=== PATIENT | male | born 1960 | race Caucasian/White ===

== ENCOUNTER 2017-01-13 08:29 | Outpatient (CLI) | payer OTHER ==
--- NOTE | 2017-01-13 09:35 | PRG ---
DATE OF SERVICE: 01/13/2017 HISTORY: Mr. Robel Black is a very pleasant 56-year-old gentleman who presents to the [facility] for evaluation of a wound of the left foot subsequent to amputation of the left great toe underlyi ng sesamoid bone and metatarsal on 08/11/[address] Bulmaro Gurrola. Also at the time of surgery, t he patient underwent wound VAC placement. Prior to surgery on 08/11/2016, the patient had undergone left femoral popliteal bypass with nonreversed saphenous vein by Dr. Conti. The patient had been a dmitted to [facility] on 08/02/2016 for a diabetic foot infection after suffe ring a puncture wound to the plantar surface of the left foot under the left great toe. MRI on 07/12 revealed osteomyelitis of the great toe sesamoid. During the patient's hospital stay, Mr. Bhupendra padilla was seen in consultation by Infectious Diseases. After an initial course of IV antibiotics, th e patient was discharged to home on Bactrim and ciprofloxacin after undergoing amputation of the lef t great toe, underlying sesamoid bone and metatarsal. The patient has completed a course of negativ e pressure therapy and is now performing dressing changes of Aquacel AG. PHYSICAL EXAMINATION: VITAL SIGNS: Temperature 98.4, pulse 89, respirations 18, blood pressure 140/76, Accu-Chek 130. EXTREMITIES: A wound of the left foot subsequent to amputation of the left great toe, underlying se samoid bone and metatarsal is still present. Granulation tissue is present within the wound margins . Nonviable tissue present within the wound margins was debrided with an excisional full-thickness debridement with the use of a curette. Callus and desiccated tissue at the periphery of the wound w ere eliminated with the use of scissors. No purulent drainage is associated with the wound. No clinton thema of the skin surrounding the wound is present. No maceration of the skin of the periwound is n oted. A posterior tibial pulse is easily palpable on the left. No significant edema of the left fo ot is present on exam today. ASSESSMENT AND PLAN: 1. Left foot wound subsequent to surgery for diabetic infection of the left foot. Dressing changes of Aquacel AG will be continued on a daily basis after cleansing and irrigation. The patient will continue to perform his own dressing changes. As stated above, the patient has completed a course o f negative pressure therapy for the left foot wound. The patient has been fitted with diabetic shoe s with inserts. The patient has also been seen by the director community organization today. The wound has almost heale d completely and Mr. Black will be discharged from clinic today with followup on a p.r.n. basis. T he patient has been instructed to continue dressing changes of Aquacel AG until the wound has comple tely healed. The patient understands and is in agreement with the preceding treatment plan. 2. Diabetes mellitus. The patient's Accu-Chek in clinic today is 130. The patient has been remind ed that for optimal wound healing, his blood glucoses should remain below 150. 3. Coronary artery disease. 4. Hypertension.
[2017-01-13] MEDS ORDERED: Lidocaine 4% Topical Sol 50 ML BOT ONE (16:19)
[2017-01-13] MEDS ORDERED: Sodium Chloride 0.9% 15 ML NEB ONE (16:19)
== END 2017-01-13 08:30 | disposition home or self-care (01) ==
LOC: WCC 08:29
PROVIDERS: ATTEND Family Medicine
DX: S91.302D Unspecified open wound, left foot, subsequent encounter (principal)
CPT/HCPCS: 11042; A4218; J2001

== ENCOUNTER 2017-02-18 03:34 | Inpatient (IN) | payer OTHER, SELFPAY ==
[2017-02-18] MEDS ORDERED: diphenhydrAMINE 50 MG/ML VIAL ONE (03:39)
[2017-02-18] MEDS ORDERED: Famotidine/PF 20 mg/2ml Vial ONE (03:39)
[2017-02-18] MEDS ORDERED: methylPREDNISolone Sod Succ/PF 125 MG/2 ML VIAL ONE (03:39)
[2017-02-18 04:26] LABS: #Basophils 0.1 thou/uL (0.0-0.2); #Eosinphils 0.3 thou/uL (0.0-0.7); #Lymphocytes 2.6 thou/uL (1.20-3.40); #Neutrophils 11.4 thou/uL (1.40-6.50); %Basophils 0.7 % (0.0-1.0); %Eosinophils 1.9 % (0.0-10.0); %Monocytes 6.4 % (0.0-10.0); Hematocrit 49.7 % (42.0-52.0); Red Blood Cell (RBC) Count 5.09 mill/uL (4.70-6.10); White Blood Cell (WBC) Count 15.4 thou/uL (4.8-10.8)
[2017-02-18 04:34] LABS: Prothrombin Time 14.3 SEC (12.0-14.7)
[2017-02-18 04:49] LABS: ALT (SGPT) 22 U/L (8-55); AST (SGOT) 10 U/L (5-34); Alkaline Phosphatase 83 U/L (40-150); Anion Gap 13 mmol/L (10-20); BUN (Urea Nitrogen) 28 mg/dL (8.4-25.7); Bilirubin, Total 0.2 mg/dL (0.2-1.2); Calc. Creatinine Clearance 0 mL/min (70-130); Carbon Dioxide 21 mmol/L (22-29); Chloride 107 mmol/L (98-107); Estimated GFR-MDRD 66; Globulin 3.8 g/dL (2.4-3.5); Protein, Total 8.1 g/dL (6.0-8.3)
[2017-02-18] MEDS ORDERED: Acetaminophen 325 MG TAB PO PRN (04:59)
[2017-02-18] MEDS ORDERED: Ondansetron ODT 4 MG TAB SL PRN (04:59)
[2017-02-18] MEDS ORDERED: Sodium Chloride 0.9% 1,000 ML IV SCH ×3 (04:59→07:45)
[2017-02-18] MEDS ORDERED: Ondansetron HCl/PF 4 MG/2 ML Vial IVP PRN (04:59)
[2017-02-18 05:25] VITALS: BMI 31.8
[2017-02-18] MEDS ORDERED: Dextrose 50% Abboject 50 ML SYRINGE SLOW IVP PRN (05:41)
[2017-02-18] MEDS ORDERED: Dextrose 5% in Water 1,000 ML IV PRN (05:41)
[2017-02-18] MEDS ORDERED: HumaLOG 300 UNITS/3 ML VIAL SC PRN (05:45)
[2017-02-18] MEDS ORDERED: hydrALAZINE 20 MG/ML VIAL SLOW IVP PRN (05:54)
[2017-02-18] MEDS: Nicotine 14 MG PATCH TD SCH (06:19)
--- NOTE | 2017-02-18 07:27 | HP-2 ---
DATE OF ADMISSION: 02/18/2017 CODE STATUS: FULL. PRIMARY CARE PHYSICIAN: Dr. Nette Stewart in [place]. ATTENDING: Dr. Gaxiola. RESIDENT: Dr. Katelyn Baldwin. SPECIALIST: Dr. Braxton, Cardiology. CHIEF COMPLAINT: Tongue and throat swelling. HISTORY OF PRESENT ILLNESS: This is a 56-year-old male with past medical history of hypertension; c oronary artery disease; CHF; diabetes, type 2; hyperlipidemia; who presents with tongue and throat s welling that started around midnight tonight. The patient reports that it woke him up from sleep an d got progressively worse until around 3:00 a.m. when it stabilized. Since then, it has not gotten any worse, but also has not gotten any better. The patient denies any shortness of breath or any it phillip. He does not have any rashes or hives. He has not eaten any new foods. Does not have any st ings or bites. The patient reports that he has had several episodes similar to this before includin g an episode in 2014 where he went to the ER in [place], where at that time the only medication he was taking was atenolol and they just gave him epinephrine and sent him home. Then, another epi sode last week where his tongue was swollen on just one side, just lasted a few hours, and then went away on its own. He was just started on lisinopril a few months ago and is not taking a new dose o f this. Denies any cough, trouble breathing, chest pain. In the ER, he was given 1 liter normal sa line, 20 mg Pepcid, 50 mg Benadryl, 125 mg Solu-Medrol. PAST MEDICAL HISTORY: 1. Hypertension. 2. Hyperlipidemia. 3. Coronary artery disease, status post coronary artery bypass graft. 4. Congestive heart failure with an ejection fraction of 35%-40% and diastolic dysfunction. 5. Diabetes, type 2. PAST SURGICAL HISTORY: CABG x3 in 2010, back surgery, hernia repair, right great toe and right seco nd toe amputation. ALLERGIES: No known drug allergies. MEDICATIONS: 1. Gemfibrozil 600 mg b.i.d. 2. Metoprolol 25 mg b.i.d. 3. Metformin 500 mg b.i.d. 4. Atorvastatin 40 mg daily. 5. Lisinopril 10 mg daily. 6. Clopidogrel 75 mg daily. FAMILY HISTORY: Mother, hypertension. SOCIAL HISTORY: Tobacco use. Smokes 2 to 3 cigarettes a day for 30 years. Denies alcohol or drug use. Lives alone. REVIEW OF SYSTEMS: A 12-point review of systems was conducted and was negative except for what was mentioned in the HPI. PHYSICAL EXAMINATION: VITAL SIGNS: Blood pressure 126/80, pulse 90, respiratory rate 18, temperature 97.4, pulse ox 93% o n room air, current weight 118 kilograms. GENERAL: Alert, oriented x3, in no acute distress, obese, appropriately interactive. EYES: Pupils equal, round, reactive to light. Extraocular muscles intact. Conjunctivae within nor mal limits. ENT: Tympanic membranes pearly nevarez with no bulging or erythema. Nasal mucosa within normal limits . Swollen lips and tongue, unable to visualize posterior pharynx. NECK: Swollen. No lymphadenopathy. CARDIOVASCULAR: Regular rate and rhythm. No murmurs, gallops. A 2+ radial and pedal pulses. RESPIRATORY: Normal effort, no retractions, clear to auscultation bilaterally. SKIN: Warm, dry. No cyanosis or lesions. ABDOMEN: Obese, soft, nontender to palpation. Normoactive bowel sounds. EXTREMITIES: No clubbing, cyanosis, or edema. MUSCULOSKELETAL: Structure and tone within normal limits, 5/5 muscle strength. Full range of motio n. NEUROLOGIC: No focal deficits. Sensation within normal limits. PSYCHIATRIC: Appropriate. LABORATORY DATA: WBC 15.4, hemoglobin of 16.8, hematocrit of 49.7, platelets 349. Sodium 137, pota ssium 4.2, chloride 107, CO2 of 21, BUN 28, creatinine of 1.14, GFR 66, glucose 153, calcium 10, tot al protein 8.1, albumin 4.3, total bilirubin 0.2, alkaline phosphatase 83, AST 10, ALT 22. ESR 24, CRP less than 0.5. PT 14.3, INR 1.1, PTT 36.0. ASSESSMENT AND PLAN: This is a 56-year-old male admitted for: 1. Angioedema. Airway currently protected. We will admit to the ICU for close observation. Reshma rn for airway compromise. We will intubate if worsened swelling. Angioedema could be secondary to MALCOM inhibitor or hereditary angioedema with the patient having multiple episodes of angioedema prior to MALCOM inhibitor treatment. We will check C4 level. We will hold lisinopril. We will hold all NS AIDs. We will treat with Benadryl and Solu-Medrol. 2. Acute kidney injury. We will give light fluids with NS at 100 mL per hour for 1 bag and we will monitor. We will hold metformin. 3. Leukocytosis. No other signs of infection, likely secondary to steroids. We will monitor. 4. Elevated ESR, likely acute phase reactant from inflammation. Monitor. 5. Congestive heart failure. A recent catheterization showed EF of 35%-40% in 12/2016. We will mo nitor fluid status as giving patient NS at 100 mL per hour. We will continue metoprolol once patien t is tolerating p.o. 6. Diabetes, type 2. We will give patient sliding scale insulin and Accu-Cheks a.c. and at bedtime , diabetic diet after the patient is able to tolerate p.o. 7. Hypertension. We will hold lisinopril. We will give hydralazine p.r.n. We will continue metop rolol once patient is tolerating p.o. 8. Coronary artery disease. We will continue clopidogrel once the patient is tolerating p.o. 9. Hyperlipidemia. We will continue home medications once patient tolerating p.o. 10. VTE prophylaxis. Lovenox. DISPOSITION: Admit to ICU. Symptomatic medication will be provided. History and physical exam as well as management were discussed with Dr. Gaxiola.
[2017-02-18] MEDS ORDERED: FLU VACC QS2017-18 36 mo. & older 0.5 ML SYRINGE IM ONE (09:00)
[2017-02-18] MEDS: Enoxaparin Sodium 40 MG/0.4 ML SYRINGE SC SCH (09:04)
--- NOTE | 2017-02-18 12:13 | CON ---
DATE OF CONSULTATION: 02/18/2017 HISTORY OF PRESENT ILLNESS: Mr. Black is a pleasant 56-year-old male with a history of heart disea se followed by Dr. Braxton. He tells me that he has had intermittent episodes of tongue swelling going on for quite some time. He says he has actually been in [facility] once with this. They watched him for 8 hours, but n ever explained to him what might have caused this. He has been on an MALCOM inhibitor for quite some time. He had an episode yesterday that presented that was worse than the other episodes, so he came to the hospital. He was observed overnight in the ICU. His tongue is by his report decreased in size con siderably. PAST MEDICAL HISTORY: 1. Remarkable for hypertension. 2. Lipid disorder. 3. Coronary artery bypass grafting. 4. History of a cardiomyopathy with systolic and diastolic dysfunction. 5. History of diabetes. 6. History of back surgery. 7. History of a herniorrhaphy. 8. History of right great toe and second right toe amputations. SOCIAL HISTORY: He is a smoker. He is not a daily drinker. MEDICATIONS: He is on lisinopril, Plavix, atorvastatin, metformin, metoprolol, gemfibrozil prior to admission. FAMILY HISTORY: Negative for lung disease at an early age. There is a history of hypertension. REVIEW OF SYSTEMS: Otherwise negative. He denies shortness of breath at this time. PHYSICAL EXAMINATION: VITAL SIGNS: Heart rate 79, blood pressure 109/63, respiratory rate 15-21. Oximetry is 95 on room air. HEENT: His tongue is only slightly swollen. He has thickened speech because of his swollen tongue, but he is in no distress with no stridor. NECK: Supple. LUNGS: Clear. HEART: Regular rhythm. S1 and S2 are normal. ABDOMEN: Soft. EXTREMITIES: Without asymmetry. LABORATORY DATA: White count 15.4, hemoglobin 16.8, platelets 349. Sodium 137, potassium 4.2, chloride 107, bicarbonate 21, BUN 21, creatinine 1.14, glucose 153, globu usama was 3.8. 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 I have explained to him that he needs to avoid MALCOM inhibitors in the future. I have consulted Dr. Braxton, she is his primary certified phlebotomy technician, that she is aware of this situation. He can transfer out of the Critical Care Unit. He does not need heart monitoring at this point.
--- NOTE | 2017-02-18 19:05 | CON ---
DATE OF CONSULTATION: 02/18/2017 PRIMARY CARE PHYSICIAN: Dr. Fito Fernandez. PRIMARY LARGE ANIMAL HUSBANDRY TECHNICIAN: Dr. Missy Braxton. REFERRING PHYSICIAN: Dr. Katelyn Baldwin. REASON FOR CARDIOLOGY CONSULTATION: Angioedema. HISTORY OF PRESENT ILLNESS: Mr. Black is a 56 years old male with significant history of coronary artery disease with history of coronary artery bypass graft in 2010 and hypertension, diabetes type 2, and peripheral vascular disease. The patient presents to the emergency department due to worsening of swelling in his mouth and the tongue and unable to breathe well. He has experienced of several episodes of swelling in his tongue and mouth in the past. The last time was few weeks ago which his left side of his mouth get swelling for 1 hour. His symptom was improved without any medication or treatment at that time. However, last night after midnight his tongue started swelling again, but at that time his symptoms were getting worse, and he could not swallow and could not breathe well. At that time, he felt his tongue was poking out, and he could not talk at all. In the ER, he received 1 liter of normal saline and Benadryl 50 mg and Solu-Medrol 125 mg IV. After those medicines patient's symptoms improved. During the Cardiology consultation assessment, he could talk without nasal cannula. He denies any itchiness or skin rash or had any different food or detergent or any insect bites or any new medicine except the lisinopril which he started taking that medicine since 2016 after he was hospitalized for chest pain and non-STEMI. He was discharged home with lisinopril at that time. We saw the patient in the office in 2016 for hospital followup. At that time, patient denies any shortness of breath, dizziness, lightheadedness, itchiness, or swelling. The patient reports that he has had similar episodes like today before the end of 2014. At that time, his symptoms improved within few hours. He has a history of coronary artery disease, status post coronary artery bypass graft x3 in 2010. The patient underwent cardiac catheterization in 12/2016 without any intervention at that time. Doctor's recommendation at that time was possible another cardiac catheterization with intervention if patient is symptomatic. He had an echocardiogram in 12/2016 which shows EF of 45% to 50%, mild mitral regurgitation, mild tricuspid regurgitation and mild dilated left atrium. PAST MEDICAL HISTORY: 1. Coronary artery disease. 2. Hypertension. 3. Hyperlipidemia. 4. Diabetes type 2. 5. Peripheral vascular disease. 6. Current tobacco abuse. PAST SURGICAL HISTORY: 1. Coronary artery bypass graft x3 in 2010. 2. Back surgery. 3. Hernia repair. 4. Bilateral first toe and right second toe amputation in 08/2016. FAMILY HISTORY: The patient's mother has a history of diabetes and hypertension. The patient's younger brother has a history of stent placement at the age of 45. SOCIAL HISTORY: The patient is and lives by himself. He has 3 children who are living well. He still smokes 2-3 cigarettes a day for 30 years. He denies ETOH or illicit drug abuse. He enjoy 2 cups of coffee in the morning and several sodas or teas during the daytime. ALLERGIES: Except the lisinopril, he has no known drug allergies. CURRENT HOME MEDICATIONS: Metformin 500 mg twice a day, aspirin 81 mg once a day, multivitamin 1 tablet once a day, metoprolol tartrate 25 mg twice a day, lisinopril 10 mg once a day, Plavix 75 mg once a day, atorvastatin 40 mg once a day, gemfibrozil 600 mg every day twice a day, 30 minutes before morning and evening meal. REVIEW OF SYSTEMS: The following complete review of systems was negative, unless otherwise mentioned in the HPI or below. Constitutional: Weight loss or gain, sense of well being, ability to conduct usual activities, exercise tolerance. Skin: Rash, itching, change in hair growth or loss, nail change. Breasts: Lump tenderness, swelling, nipple discharge. Eyes: Vision change, double vision, tearing, blind spots or pain. HEENT: Mild headache, vertigo, lightheadedness or dizziness, nose bleeding, obstruction or discharge, dental difficulty, gingival bleeding, dentures, neck stiffness, pain, tenderness, mass in the thyroid or other areas. Cardiovascular: Precordial pain, substernal distress, palpitations, syncope, dyspnea on exertion, orthopnea, nocturnal dyspnea, edema, cyanosis, heart murmur, varicosis claudication. Respiratory: Pain, wheezing, stridor, cough, hemoptysis, fever or night sweats. Gastrointestinal: Poor appetite, dysphagia, indigestion, abdominal pain, heartburn, irritation, constipation, or diarrhea, abnormal stool, blood in stool. Genitourinary: No urgency, frequency, dysuria, nocturia, hematuria, polyuria, oliguria, unusual color of urine. Musculoskeletal: Pain, swelling, redness or heat of muscle or joint, limitation of motion, atrophy or cramps. Neurologic: Seizure , difficulty with memory of speech, sensory or motor disturbance or muscular coordination. Psychiatric: Emotional problem, anxiety , depression, previous psychiatric care, unusual perceptions, hallucinations. PHYSICAL EXAMINATION: VITAL SIGNS: Blood pressure 120/63, heart rate 81 with sinus rhythm. O2 sat 94 % on 4 liters nasal cannula, temperature 98.4. GENERAL: Well-developed, well-nourished without any acute distress. HEAD: Normocephalic, atraumatic. EYES: Extraocular muscle movements are intact. ENT: Oral and nose mucosa are moist without lesion. His tongue is swelling, but he can swallow his saliva at this time, he is n.p.o. at this time. NECK: No JVD. Neck is supple, normal range of motion. LUNGS: Clear to auscultation bilaterally. No wheezing, rales or rhonchi noted. CARDIOVASCULAR: Regular rate and rhythm, normal S1, S2. There are no S3, S4. No significant murmur, hives, thrill, bruits or rub noted. There are 2+ dorsal pedis, posterior tibial, popliteal are present. Carotid pulse present without bruit or thrill. No edema in the bilateral lower extremities. Bilateral first toe and the right second toe amputate. ABDOMEN: Soft and nontender to palpate, nondistended. Bowel sounds are present. MUSCULOSKELETAL: Able to move all extremities. SKIN: Warm and dry. No skin rash or lesions or bruise noted. Incision at the first toe, bilateral toe first toe and right second toe, clean and healed. NEUROLOGIC: Alert, oriented x4, awake. Normal affect. No focal. PSYCHIATRIC: Mood and affect are normal. EKG: There is no 12-lead EKG in the patient's chart at this moment with telemetry records shows patient sinus rhythm without any ST segment change with a heart rate 80s. At this time, he does not have any chest x-ray or any radiology results and records at this time. LABORATORY DATA: WBC 15.4, hemoglobin 16.8, hematocrit 49.7, platelets 349. INR is 1.1. Chemistry: Sodium 137, potassium 4.2, BUN 28, creatinine 1.14, glucose 153, AST 10 and ALT 22. C-reactive protein less than 0.5 and complement C4 is a 59.1, which is normal at 15-53. ASSESSMENT AND PLAN: 1. Angioedema, his symptoms possible secondary to MALCOM inhibitor. He is in ICU for close observation. At this time, his symptoms slowly improved with current medication. His complement C4 is slightly higher than normal which is not indicate hereditary angioedema. We would like to continue to monitor the patient closely in ICU at this time. 2. Coronary artery disease with a history of CABG x3 in 2010. The patient's condition is stable at this time with current medication. Once patient is able to swallow, we would like to resume patient's home medications except lisinopril. 3. Hypertension. The patient's blood pressure is stable at this time. We like to continue to monitor and again, we like to resume patient's home medication as appropriate. 4. Peripheral vascular disease with a history of toe amputation in 08/2016. The patient's condition stable, at this time, we like to continue to monitor and the patient has Lovenox 40 mg daily for deep venous thrombosis prophylaxis. 5. Diabetes type 2. He is on the a.c. and h.s. glucose check with Humalog sliding scale order, which is managed by patient's primary care doctor. 6. Hyperlipidemia. He is on a statin medication. We like to resume that medication as appropriate. 7. Tobacco abuse. Smoking cessation education giving to the patient. Thank you very much for allowing Cardiology service to participate in the care of the patient. We will follow along with the patient's care team and make further recommendations as appropriate. SUSAN
[2017-02-18] MEDS: diphenhydrAMINE 50 MG/ML VIAL IVP SCH (21:47)
[2017-02-19 05:26] LABS: #Basophils 0.1 thou/uL (0.0-0.2); #Eosinphils 0.2 thou/uL (0.0-0.7); #Lymphocytes 2.8 thou/uL (1.20-3.40); #Monocytes 0.8 thou/uL (0.11-0.59); #Neutrophils 8.8 thou/uL (1.40-6.50); %Basophils 0.8 % (0.0-1.0); %Eosinophils 1.8 % (0.0-10.0); %Lymphocytes 21.9 % (21.0-51.0); %Monocytes 6.6 % (0.0-10.0); Hematocrit 44.6 % (42.0-52.0); Mean Platelet Volume 8.3 fL (7.4-10.4); Red Blood Cell (RBC) Count 4.56 mill/uL (4.70-6.10); White Blood Cell (WBC) Count 12.8 thou/uL (4.8-10.8)
[2017-02-19 05:51] LABS: Anion Gap 13 mmol/L (10-20); BUN (Urea Nitrogen) 18 mg/dL (8.4-25.7); Calc. Creatinine Clearance 161 mL/min (70-130); Calcium 8.9 mg/dL (7.8-10.44); Carbon Dioxide 18 mmol/L (22-29); Chloride 109 mmol/L (98-107); Estimated GFR-MDRD Greater than 90
--- NOTE | 2017-02-19 05:55 | ADD-CON ---
ADDENDUM DATE OF ADMISSION: 02/18/2017 DATE OF CONSULTATION: 02/18/2017 INDICATION FOR CONSULTATION: A 56-year-old gentleman with what appears to be hereditary angioedema with some tongue swelling and some dyspnea due to the swelling of the tongue. HISTORY OF PRESENT ILLNESS: This is a very pleasant 56-year-old gentleman who underwent bypass surg clinton approximately 5-6 years ago. He had no significant problems since that time as far as his coron vin artery disease is concerned. He has had some episodes of congestive heart failure in the past. He did have his last cardiac catheterization in 2017 earlier this year, ejection fraction estimated at 35% to 40%. He has had what he describes as being some swelling of the tongue in the right side and left side, it varies from time to time on an occasional basis. He was not change any particula r medication that we can identify, he had been on lisinopril and I thought at one time, perhaps it w as due to the lisinopril, so this medicine was stopped and he still continued to have some of the ep isodes of edema. He did not have any rashes, usually this occurs in the evenings while he is sleepi ng and he wakes up with it and has noticed that he has enlarged tongue and has difficulty breathing. Usually, he said it goes away relatively quickly if he takes some Benadryl. But at this time, he had some worsening of the problem and the entire swollen and became short of breath and presented to the emergency room. It is uncertain if it is medications or environmental or food allergies or jus t due to hereditary angioedema. At this time, most of the swelling has resolved and he is back to h is baseline. Previously, he had been on lisinopril, metoprolol, pravastatin, gemfibrozil as well as atorvastatin and metformin. There have been no major changes in his medications, but as noted abov e, he has been on and off of lisinopril and even while being off the lisinopril, he has had these ep isodes of this edema. At this time, he is stable and is feeling almost back to baseline. Please re enrico to the notes already dictated by the nurse practitioner Kallie. I have reviewed this, discussed the patient with her, will agree with the assessment and plan. PHYSICAL EXAMINATION: VITAL SIGNS: He is afebrile. CHEST: Clear to auscultation. CARDIOVASCULAR: Exam reveals a regular rate and rhythm. ABDOMEN: Unremarkable. EXTREMITIES: Show no clubbing, cyanosis or edema. NEUROLOGIC: He appears to be fully intact. SKIN: Warm and dry. There is no significant swelling noted in the tongue at this time. IMPRESSION: 1. 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 I believe complement levels have been obtained. 2. Diabetes. The patient is on medications. 3. Hypertension. This remains stable. He has had a problem with smoking in the past, continues to smoke unfortunately, I believe this has also been addressed for his nicotine addiction. 4. Acute renal insufficiency, which is mild. This also may be associated with his angioedema. He has been placed on steroids and this apparently has improved. He does have a history also of a syst olic as well as diastolic dysfunction. There also appears to be stable. We will need to monitor hi s fluid intake. Otherwise, he will continue on the present medications with an antihistamine and st eroids. We will be more than happy to continue to follow the patient with you, but overall cardiac status ap pears to be very stable.
[2017-02-19] MEDS: Nicotine 14 MG PATCH TD SCH (05:57)
--- NOTE | 2017-02-19 08:07 | PDOC.FM ---
- Subjective Subjective: STEW overnight, VSS, afebrile. States swelling feels like it has completely resolved. Tolerating CLD. Asking for regular food. Has never seen an car pilot before. No FHx of angioedema - Objective MAR Reviewed: Yes Vital Signs & Weight: Vital Signs (12 hours) Temp Pulse Resp BP Pulse Ox 02/19/17 04:00 97.8 F 75 20 115/73 95 02/19/17 00:49 98.5 F 73 20 103/67 95 Most Recent Monitor Data Heart Rate from ECG 89 NIBP 120/76 NIBP BP-Mean 92 Respiration from ECG 16 SpO2 95 I&O: 02/18/17 02/19/17 02/20/17 06:59 06:59 06:59 Intake Total 88 1218 Output Total 450 Balance 88 768 Result Diagrams: 02/19/17 05:13 02/19/17 05:13 <Rick Latham - Last Filed: 02/19/17 08:05> - Objective Vital Signs & Weight: Vital Signs (12 hours) Temp Pulse Resp BP Pulse Ox 02/19/17 09:00 98.3 F 114 H 16 02/19/17 08:28 98.3 F 114 H 16 105/74 97 02/19/17 04:00 97.8 F 75 20 115/73 95 02/19/17 00:49 98.5 F 73 20 103/67 95 Most Recent Monitor Data Heart Rate from ECG 89 NIBP 120/76 NIBP BP-Mean 92 Respiration from ECG 16 SpO2 95 I&O: 02/18/17 02/19/17 02/20/17 06:59 06:59 06:59 Intake Total 88 1218 Output Total 450 Balance 88 768 Result Diagrams: 02/19/17 05:13 02/19/17 05:13 <Janelle Abrams - Last Filed: 02/19/17 10:22> Phys Exam - Physical Examination Constitutional: NAD HEENT: PERRLA, oral pharynx no lesions Neck: no nodes Respiratory: no wheezing, clear to auscultation bilateral Cardiovascular: RRR, no significant murmur Gastrointestinal: soft, non-tender Musculoskeletal: no edema, pulses present Neurological: non-focal, moves all 4 limbs Lymphatic: no nodes Psychiatric: normal affect, A&O x 3 Skin: cap refill <2 seconds <Rick Latham - Last Filed: 02/19/17 08:05> Dx/Plan (1) Angioedema Code(s): T78.3XXA - ANGIONEUROTIC EDEMA, INITIAL ENCOUNTER Status: Resolved Plan: 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 Episodes prior to initiation of MALCOM during his last hospitalization Has resolved and respiratory status stable and tolerating PO Will set pt up w/ car pilot for allergy testing outpaient Plan to d/c home today w/ anaphylaxis action plan, however no sxs of anaphylaxis w/ angioedema episode Will d/c out with epinephrine C4 level not suppressed and pending C1 Esterase inhibitor function Advance diet as tolerated today Will plan for likely d/c later on this afternoon if remains stable (2) MAREK (acute kidney injury) Code(s): N17.9 - ACUTE KIDNEY FAILURE, UNSPECIFIED Status: Resolved Plan: resolved s/p IVF (3) CHF (congestive heart failure) Code(s): I50.9 - HEART FAILURE, UNSPECIFIED Status: Acute Plan: Cont. w/ ASA and statin and beta lorna MALCOM/ARB contraindicated 2/2 angioedema (4) DM type 2 (diabetes mellitus, type 2) Status: Chronic Plan: Diabetic diet Cont. w/ metformin (5) HTN (hypertension) Code(s): I10 - ESSENTIAL (PRIMARY) HYPERTENSION Status: Chronic Plan: Cont. w/ home BP meds Stable <Rick Latham - Last Filed: 02/19/17 08:05> Attending Addendum - Attending Addendum I personally evaluated the patient and discussed the management with Dr. Latham on 02/19/17. I agree with the History, Examination, Assessment and Plan documented above with any addition or exceptions noted below. Patient back to baseline. Given a list of medication to avoid and an action plan. Discharge home today. <Janelle Abrams - Last Filed: 02/19/17 10:22>
[2017-02-19 08:29] VITALS: BP 105/74; TEMP 98.3
[2017-02-19] MEDS: diphenhydrAMINE 50 MG/ML VIAL IVP SCH (08:42)
[2017-02-19] MEDS: Enoxaparin Sodium 40 MG/0.4 ML SYRINGE SC SCH (08:46)
[2017-02-19] MEDS ORDERED: Rosuvastatin 10 MG TAB PO SCH ×2 (10:30→21:00)
--- NOTE | 2017-02-19 10:30 | PRG ---
DATE OF SERVICE: 02/19/2017 Mr. Black's tongue is back to normal. He is talking fluently. He has had no blood pressure elevat ions. He is tolerating p.o. intake. In my opinion, he is ready to go home. This is clearly angioe katlin brought on by his MALCOM inhibitor; it is not felt to be an allergic reaction in my opinion or her editary angioedema. It would be very unusual for him to develop hereditary angioedema at 56 years o f age. He should avoid MALCOM inhibitor.
--- NOTE | 2017-02-19 10:33 | PDOC.CTH ---
Cardiology Progress Note - Subjective The pt was seen and examined. No overnight events. No cardiac complaints. He is having breakfast without any difficulties. - Objective Vital Signs Temp Pulse Resp BP Pulse Ox 02/19/17 09:00 98.3 F 114 H 16 02/19/17 08:28 98.3 F 114 H 16 105/74 97 02/19/17 04:00 97.8 F 75 20 115/73 95 02/19/17 00:49 98.5 F 73 20 103/67 95 02/18/17 02/19/17 02/20/17 06:59 06:59 06:59 Intake Total 88 1218 Output Total 450 Balance 88 768 - Physical Examination General/Neuro: alert & oriented x3 Neck: no JVD present Lungs: CTA Heart: RRR Abdomen: soft Extremities: other: (No edema) - Labs Result Diagrams: 02/19/17 05:13 02/19/17 05:13 - Assessment/Plan 1. Angioedema - resolved; F/u with programmer as outpt 2. CAD with CABG x3 in 2010 - His HR was 82 during exam; Will resume ASA and BBlocker when his BP is stable 3. HTN - stable with current medication 4. PVD - stable 5. DM type 2 - Cont. w/ metformin 6. Hyperlipidemia - change Lipitor 40mg to Crestor 10mg due to drug interaction to Gemfibrozil 600mg BID 7. Tobacco abuse - smoking cessation education given to the pt MAR reviewed *from Cardiac standpoint, the pt is stable to d/c; The pt will f/u with Dr Braxton ' office within 1 month. Thank you very much for cardiac consult request Review of Systems - Review of Systems Constitutional: reports: no symptoms reported EENTM: reports: no symptoms reported Respiratory: reports: no symptoms reported Cardiac (ROS): reports: no symptoms reported ABD/GI: reports: no symptoms reported : reports: no symptoms reported Musculoskeletal: reports: no symptoms reported Skin: reports: no symptoms reported Neurological: reports: no symptoms reported Endocrine: reports: no symptoms reported
--- NOTE | 2017-02-19 14:22 | DIS-2 ---
DATE OF ADMISISON: 02/18/2017 DATE OF DISCHARGE: 02/19/2017 CONSULTS: 1. Critical care, Dr. Gordon. 2. Cardiology, Dr. Braxton. PROCEDURES: None. 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 SECONDARY DIAGNOSES: 1. Hypertension. 2. Congestive heart failure. 3. Hyperlipidemia. 4. Coronary artery disease. 5. Type 2 diabetes mellitus. DISCHARGE MEDICATIONS: 1. Gemfibrozil 600 mg p.o. b.i.d. 2. Metoprolol 25 mg p.o. b.i.d. 3. Metformin 500 mg p.o. b.i.d. 4. Atorvastatin 40 mg p.o. daily. 5. Clopidogrel 75 mg p.o. every day. 6. EpiPen 0.3 mg IM q.5-15 minutes p.r.n. swelling or anaphylaxis. DISCONTINUED MEDICATIONS: Lisinopril 10 mg p.o. daily. HISTORY OF PRESENT ILLNESS AND HOSPITAL COURSE: The patient is a 56-year-old male with past medical history of hypertension, coronary artery disease, CHF, diabetes, and hyperlipidemia, who presents t o the ER for worsening tongue and throat swelling that started at around midnight, the Wednesday night prior to presentation. The patient states that this awoke him up from sleep and continued to get wo rsen till about 3:00 a.m. before stabilizing. Patient denies any rash, hives and blood pressure is stable in the ER, not concerning for anaphylaxis. The patient did receive Solu-Medrol as well as di phenhydramine in the ER with subsequent improvement of his swelling of the throat and tongue. Lily rogers reportedly had a prior episode back in 2014 where he presented to the ER in [place] and was given EpiPen at this time. This is prior to onset of any of his MALCOM inhibitor use. There was nelson rn for possible component of hereditary angioedema, alongside the patient being started on lisinopri l during his previous hospitalization for chest pain and in the setting of diabetes and coronary art clinton disease. C4 complement level was obtained; however, this was normal and not depressed as would be expected as hereditary angioedema. Secondary to a somewhat high suspicion of C1 esterase inhibit or function was obtained, which is pending at time of this dictation. After consultation with [facility] and Cardiology, specialists feel that this is likely MALCOM inhibitor induced and recommendati ons for no further treatment with MALCOM inhibitors or angiotensin receptor blockers in the future. Th is was discussed at length with patient. Prior to discharge home, the patient was given information on drugs to avoid which would precipitate this. The patient's vital signs remained stable off MALCOM inhibitor, so this medication was discontinued in the setting of an MALCOM inhibitor induced angioedema . The patient is to follow up with an reading interventionist for a possible environmental triggers, which could pass as well and will be contacted with the results of the C1 esterase inhibitor function once recei alessia. DISPOSITION: Stable. DISCHARGE INSTRUCTIONS: 1. Location: Home. 2. Follow up with primary care provider in 7-10 days. 3. Follow with Dr. Yang Mclain, allergy in 7-10 days. 4. Activity: Cardiopulmonary limits.
== END 2017-02-19 13:45 | disposition home or self-care (01) | DRG 916 ==
LOC: ERS 03:34 → CCU 03:50 → T4-B 13:37
PROVIDERS: ADMIT Family Medicine; ATTEND Family Medicine
DX: T78.3XXA Angioneurotic edema, initial encounter (principal); N17.9 Acute kidney failure, unspecified; I11.0 Hypertensive heart disease with heart failure; I50.32 Chronic diastolic (congestive) heart failure; T46.4X5A Adverse effect of angiotensin-converting-enzyme inhibitors, initial encounter; I25.10 Atherosclerotic heart disease of native coronary artery without angina pectoris; Z95.1 Presence of aortocoronary bypass graft; E11.9 Type 2 diabetes mellitus without complications; Z79.84 Long term (current) use of oral hypoglycemic drugs; E78.5 Hyperlipidemia, unspecified; I73.9 Peripheral vascular disease, unspecified; F17.210 Nicotine dependence, cigarettes, uncomplicated; Z89.412 Acquired absence of left great toe; Z89.411 Acquired absence of right great toe; Z89.421 Acquired absence of other right toe(s)
CPT/HCPCS: 36415; 36416; 80048; 80053; 85025; 85610; 85652; 85730; 86140; 86160; 86161; 90471; 90682; 94760; 96361; 96374; 96375; 99406; G0008; J1200; J1650; J2920; J2930; Q2036; S0028

== ENCOUNTER 2017-04-28 08:47 | Outpatient (CLI) | payer OTHER ==
--- NOTE | 2017-04-28 10:11 | PRG ---
DATE OF SERVICE: 04/28/2017 HISTORY: Mr. Robel Black is a very pleasant 56-year-old gentleman who presented to the [facility] for evaluation of a lesion of the left forefoot. The patient was last seen in the [facility]ound Center on 01/13/2017 for a wound of the left foot subsequent to amputation of the left great toe, underlying se samoid bone and metatarsal on 08/11/[address] Bulmaro Gurrola. This wound has healed completely and remains healed. The patient states that he has been utilizing the shoes fitted for him by the pedor thist. He states that the lesion of his left forefoot may be from the diabetic shoes with inserts. The patient states that he does not recall stepping on anything that may have resulted in the left fo refoot lesion. PHYSICAL EXAMINATION: VITAL SIGNS: Temperature 98.4, pulse 82, respirations 19, blood pressure 140/69. Accu-Chek 135. EXTREMITIES: A callus is present and over the left forefoot, discoloration of the center of callus i s noted. No open wound is present over the left forefoot. No cellulitis of the left foot is present . No maceration of the skin of the left forefoot is present. A dorsalis pedis pulse is palpable on the left. No significant edema of the left foot is present on exam today. ASSESSMENT AND PLAN: 1. Left forefoot lesion as described above. I have reassured the patient that no open wound is pres ent requiring dressing changes. The patient is to return to the Wound Center in 2 weeks. At this ti me, he will be seen by the sales technician. The patient understands and is in agreement with the precedin g treatment plan. 2. Diabetes mellitus. The patient's Accu-Chek in clinic today is 135. 3. Coronary artery disease. 4. Hypertension.
== END 2017-04-28 08:48 | disposition home or self-care (01) ==
LOC: WCC 08:47
PROVIDERS: ATTEND Family Medicine
DX: L98.8 Other specified disorders of the skin and subcutaneous tissue (principal); E11.9 Type 2 diabetes mellitus without complications; I25.10 Atherosclerotic heart disease of native coronary artery without angina pectoris; I10 Essential (primary) hypertension

== ENCOUNTER 2017-05-23 13:07 | Inpatient (IN) | payer SELFPAY ==
[2017-05-23 14:28] LABS: #Eosinphils 0.2 thou/uL (0.0-0.7); #Lymphocytes 1.5 thou/uL (1.20-3.40); #Monocytes 0.6 thou/uL (0.11-0.59); #Neutrophils 7.5 thou/uL (1.40-6.50); %Basophils 0.5 % (0.0-1.0); %Eosinophils 2.4 % (0.0-10.0); %Lymphocytes 14.9 % (21.0-51.0); %Monocytes 6.4 % (0.0-10.0); %Neutrophils 75.9 % (42.0-75.0); Hemoglobin 15.3 g/dL (14.0-18.0); Mean Corpuscular HGB CONC 34.4 g/dL (32.0-36.0); Mean Corpuscular Hemoglobin 33.2 pg (27.0-31.0); Mean Corpuscular Volume 96.2 fl (80.0-94.0); Mean Platelet Volume 9.6 fL (7.4-10.4); Platelet Count 255 thou/uL (130-400); RBC Distribution Width 12.9 % (11.5-14.5); Red Blood Cell (RBC) Count 4.61 mill/uL (4.70-6.10); White Blood Cell (WBC) Count 9.9 thou/uL (4.8-10.8)
[2017-05-23 15:16] LABS: Albumin 3.9 g/dL (3.5-5.0)
[2017-05-23 15:17] LABS: Chloride 101 mmol/L (98-107); Potassium 4.7 mmol/L (3.5-5.1); Sodium 136 mmol/L (136-145)
[2017-05-23 15:18] LABS: Calcium 9.9 mg/dL (7.8-10.44); Glucose 208 mg/dL (70-105)
[2017-05-23 15:19] LABS: Globulin 3.7 g/dL (2.4-3.5); Protein, Total 7.6 g/dL (6.0-8.3)
[2017-05-23 15:20] LABS: Anion Gap 16 mmol/L (10-20); Bilirubin, Total 0.4 mg/dL (0.2-1.2); Carbon Dioxide 24 mmol/L (22-29)
[2017-05-23 15:21] LABS: Alkaline Phosphatase 77 U/L (40-150)
[2017-05-23 15:22] LABS: Calc. Creatinine Clearance 0 mL/min (70-130); Estimated GFR-MDRD 65
[2017-05-23 15:23] LABS: BUN (Urea Nitrogen) 13 mg/dL (8.4-25.7)
[2017-05-23 15:24] LABS: ALT (SGPT) 23 U/L (8-55); AST (SGOT) 9 U/L (5-34)
--- NOTE | 2017-05-23 15:49 | RAD ---
THREE VIEWS OF THE LEFT FOOT: Date: 05-23-17 History: Abscess. Patient reports wound to left foot for quite some time. Patient is undergoing wound care. Patient reports increase in redness, swelling and pain. Comparison: Left great toe, 09-17-16; views of the left foot 08-02-16. FINDINGS: There has been interval amputation of the left great toe at the level of the proximal aspect of the m etatarsal. There is also increased density and irregularity small osseous fragments adjacent to the b ase of the second and third proximal phalanges, there is also dislocation at the proximal interphalan geal joint of the second toe with irregularity of the distal portion of the proximal phalanx of the s econd toe. These findings could be more chronic in origin but a more acute process related to osteomy elitis cannot be entirely excluded. Findings could be related to remote fracture deformities as well. There is subcutaneous soft tissue swelling about the distal forefoot at the level of the second and third toes. Plantar calcaneal enthesophyte is seen. Mild degenerative changes are seen involving the tarsal bones. IMPRESSION: 1. Irregularity involving the base of the proximal phalanx of the second and third toes with adjacent small osseous fragments also demonstrating increased density. Etiology for the fragmentation is unce rtain but could be related to remote fractures. There is also increased density and deformity of each proximal phalanx. Superimposed infection cannot be excluded; although, no significant osseous destru ction is seen. However, if there is concern for osteomyelitis MRI Is recommended for further evaluati on. 2. Subcutaneous soft tissue swelling about the second and third toes and the distal forefoot with giancarlo ency seen adjacent to the metatarsal phalangeal joint of the second toe which could be related to joshua bardales's known wound in this region. POS: KORI
[2017-05-23] MEDS ORDERED: Nitroglycerin 0.4 MG TAB (25 Tab Bottle) SL PRN (17:33)
[2017-05-23] MEDS ORDERED: Sodium Chloride 0.9% 1,000 ML IV SCH (17:45)
--- NOTE | 2017-05-23 18:26 | HP ---
DATE OF ADMISSION: 05/23/2017 CHIEF COMPLAINT: Left foot pain. HISTORY OF PRESENT ILLNESS: This is a 57-year-old morbidly obese white male, who came in with a comp laint of left foot pain, which started a month ago and has a small boil on his left foot. He initial ly went to his primary care physician wound care and he was told to apply some hot compresses on his left foot and advised to monitor this. Last Wednesday, the patient noticed that it was draining and the boil has burst and it is draining serosanguineous fluid. He called the primary care physician's off ice on Wednesday, but he could not get an appointment until Wednesday and he was told by the nurse to go to the ER if the draining gets worse or pain getting worse. The patient decided to come to the hosp ital today as he noticed increased redness of his foot, which is spread almost within 2 hours, it spr ead up to his distal shaft of the left leg. The patient denied having any fever, but he does complai n of chills and rigors. When he came to the ER, he had an x-ray, which was suspicious for osteo and recommended MRI. The patient had a normal white count, but had elevated lactic acid of 2.6. His karyna n was 7/10 intensity and was unable to put weight bearing on the left foot. He almost came limping t o the ER and was in severe pain. The patient denies having any chest pain, no nausea, no vomiting, n o diarrhea, no constipation. The patient has known history of type 2 diabetes mellitus. PAST MEDICAL HISTORY: 1. Hypertension. 2. Hyperlipidemia. 3. Coronary artery disease, status post coronary artery bypass graft. 4. Congestive heart failure with EF of 35% to 40% and diastolic dysfunction. 5. Type 2 diabetes mellitus. PAST SURGICAL HISTORY: 1. CABG x3 in 2010. 2. Back surgery. 3. Hernia repair. 4. Right great toe amputation and right second toe amputation. ALLERGIES: No known drug allergies. MEDICATIONS: 1. Aspirin 81 mg daily. 2. Atorvastatin 40 mg daily. 3. Plavix 75 mg daily. 4. Gemfibrozil 600 mg b.i.d. 5. Metformin 500 mg p.o. b.i.d. 6. Metoprolol 25 mg p.o. b.i.d. 7. Nitroglycerin 0.4 mg every 5 minutes as needed for chest pain. FAMILY HISTORY: Mother and father had hypertension. SOCIAL HISTORY: The patient has a history of tobacco use. He used to smoke 2 to 3 cigarettes a day for 30 years and quit smoking. He denies alcohol or drug abuse. He lives alone. REVIEW OF SYSTEMS: All 12 systems are reviewed with the patient thoroughly and found to be negative at this time except the ones described in the HPI. The following complete review of systems was negative, unless otherwise mentioned in the HPI or below : Constitutional: Weight loss or gain, sense of well-being, ability to conduct usual activities, exerc ise tolerance. Skin/Breast: Rash, itching, changes in hair growth or loss, nail changes, breast lumps, tenderness, swelling, nipple discharge. Eyes: Vision, double vision, tearing, blind spots, pain. ENT/Mouth: Headaches (location, time of onset, duration, precipitating factors), vertigo, lightheade dness, injury. Vision, double vision, tearing, blind spots, pain, nose bleeding, colds, obstruction, discharge, dental difficulties, gingival bleeding, dentures, neck stiffness, pain, tenderness, masses in thyroid or other areas. Cardiovascular: Precordial pain, substernal distress, palpitations, syncope, dyspnea on exertion, or thopnea, nocturnal paroxysmal dyspnea, edema, cyanosis, hypertension, heart murmurs, varicosities, ph lebitis, claudication. Respiratory: Pain, shortness of breath, wheezing, stridor, cough, hemoptysis, fever or night sweats. Gastrointestinal: Poor appetite, dysphagia, indigestion, abdominal pain, heartburn, eructation, naus ea, vomiting, hematemesis, jaundice, constipation, or diarrhea, abnormal stools (ermias-colored, tarry, bloody, greasy, foul smelling), flatulence, hemorrhoids, recent changes in bowel habits. Genitourinary: Urgency, frequency, dysuria, nocturia, hematuria, polyuria, oliguria, unusual (or juan nge in) color of urine, stones, hesitancy, change in size of stream, dribbling, acute retention or in continence, libido, potency. Musculoskeletal: Pain, swelling, redness or heat of muscles or joints, limitation, of motion, muscul ar weakness, atrophy, cramps. Neurologic/Psychiatric: Convulsions, paralyses, tremor, incoordination, paresthesias, difficulties w ith memory of speech, sensory or motor disturbances, or muscular coordination (ataxia, tremor), emoti onal problems, anxiety, depression, previous psychiatric care, unusual perceptions, hallucinations. Allergy/Immunologic: Skin rash, anemia, bleeding tendency, polydipsia, polyuria, intolerance to heat or cold. PHYSICAL EXAMINATION: VITAL SIGNS: Blood pressure is 110/80, heart rate is 88, respiratory rate is 18, saturation 98%. GENERAL: The patient is moderately built and moderately nourished, does not appear to be in acute di stress. CARDIOVASCULAR: S1, S2 normal. No murmurs, rubs or gallops. LUNGS: Bilateral air entry was equal. No wheezing, no crackles. ABDOMEN: Soft, nontender, no guarding, no rebound tenderness. Bowel sounds normal. MUSCULOSKELETAL: Left foot has a severe erythema and tenderness of the left foot with open ulcer und er the second toe. No calf tenderness, no joint tenderness. SKIN: Erythema noted in the left foot extending onto the distal shaft of the tibia. NEUROLOGIC: Cranial nerve examination II through XII intact. No focal deficits were noted. PSYCHIATRIC: No signs of suicidal ideation. No signs of chay. No signs of depression. LYMPHATICS: No evidence of any lymph nodes were noted. No evidence of any cervical lymph nodes were noted. Left inguinal lymph nodes were noted at this time. LABORATORY DATA: WBC is 9.9, hemoglobin is 15.3, hematocrit is 44.3, and platelets are 255. Sodium is 136, potassium is 4.7, chloride is 101, bicarbonate is 24, BUN is 13, and creatinine is 1.15. ASSESSMENT: 1. Acute diabetic left foot ulcer. 2. Severe cellulitis. 3. Type 2 diabetes mellitus. 4. Hypertension. 5. Hyperlipidemia. 6. Coronary artery disease with coronary artery bypass grafting. PLAN: 1. Plan is to admit this patient. We will closely monitor. We will start the patient on IV antibio tics at this time vancomycin and Zosyn. Wound cultures have been already obtained in the ER. We tanesha l consult Orthopedics as the patient has been seen by Dr. Gurrola in the past. We will continue the m edical management at this time and will wait for the MRI results. 2. The patient has type 2 diabetes. We will start the patient on sliding scale insulin at this time and will put him on Levemir 20 units at bedtime and plan to keep the blood sugars in the 140 to 180. We will get hemoglobin A1c to further blood sugar control at home. 3. The patient has history of congestive heart failure with a history of CABG with a triple bypass. We will closely monitor. The patient is on Plavix and aspirin at this time. He did not have any re cent stents, so we will hold off on the Plavix and aspirin at this time as the patient could be end u p getting an amputation. We will discuss with Orthopedics tomorrow and if needed, we will restart as pirin and Plavix. 4. The patient has a history of coronary artery bypass grafting. We will need to consult Cardiology if the patient needs to go for amputation and would need 2D echo to look for a baseline ejection fra ction. 5. Deep venous thrombosis prophylaxis, at this time is Lovenox 40 mg subcutaneously. I spent 70 minutes with this patient.
[2017-05-23 18:57] LABS: Lactic Acid 1.4 mmol/L (0.5-2.2)
[2017-05-23] MEDS ORDERED: HYDROcodone/Acetaminophen 5/325 mg Tablet PO PRN (19:30)
[2017-05-23] MEDS ORDERED: Dextrose 5% in Water 1,000 ML IV PRN (19:30)
[2017-05-23] MEDS ORDERED: Dextrose 50% Abboject 50 ML SYRINGE SLOW IVP PRN (19:30)
[2017-05-23] MEDS ORDERED: Acetaminophen 325 MG TAB PO PRN (19:30)
[2017-05-23] MEDS ORDERED: Ondansetron HCl/PF 4 MG/2 ML Vial IVP PRN (19:30)
[2017-05-23 19:55] VITALS: BMI 33.8
[2017-05-23] MEDS: Piperacillin/Tazobactam 4.5 GM in Sodium Chloride 0.9% 100 ML IVPB SCH (20:22)
[2017-05-23] MEDS: Atorvastatin Calcium 40 MG TAB PO SCH (20:40)
[2017-05-23] MEDS: Insulin Detemir 100 UNITS/ML 20 UNITS in Admixture Fee 1 EACH SC SCH (20:40)
[2017-05-23] MEDS: Metoprolol Tartrate 25 MG TAB PO SCH (20:40)
[2017-05-23] MEDS: Vancomycin HCl 1.75 GM in Sodium Chloride 0.9% 500 ML IVPB SCH (20:41)
[2017-05-23] MEDS: Famotidine/PF 20 mg/2ml Vial SLOW IVP SCH (20:41)
[2017-05-23] MEDS: Docusate 100 MG CAP PO SCH (20:41)
[2017-05-24] MEDS: Piperacillin/Tazobactam 4.5 GM in Sodium Chloride 0.9% 100 ML IVPB SCH ×4 (02:30→19:40)
[2017-05-24 05:57] LABS: #Basophils 0.1 thou/uL (0.0-0.2); #Eosinphils 0.2 thou/uL (0.0-0.7); #Lymphocytes 1.2 thou/uL (1.20-3.40); #Monocytes 0.7 thou/uL (0.11-0.59); #Neutrophils 5.5 thou/uL (1.40-6.50); %Basophils 0.9 % (0.0-1.0); %Eosinophils 3.1 % (0.0-10.0); %Lymphocytes 15.6 % (21.0-51.0); %Monocytes 8.8 % (0.0-10.0); %Neutrophils 71.7 % (42.0-75.0); Hemoglobin 14.3 g/dL (14.0-18.0); Mean Corpuscular HGB CONC 33.4 g/dL (32.0-36.0); Mean Corpuscular Hemoglobin 32.5 pg (27.0-31.0); Mean Corpuscular Volume 97.2 fl (80.0-94.0); Mean Platelet Volume 8.8 fL (7.4-10.4); Platelet Count 251 thou/uL (130-400); RBC Distribution Width 12.8 % (11.5-14.5); White Blood Cell (WBC) Count 7.7 thou/uL (4.8-10.8)
[2017-05-24 06:01] LABS: Anion Gap 11 mmol/L (10-20); BUN (Urea Nitrogen) 12 mg/dL (8.4-25.7); Calc. Creatinine Clearance 132 mL/min (70-130); Calcium 9.1 mg/dL (7.8-10.44); Carbon Dioxide 24 mmol/L (22-29); Chloride 104 mmol/L (98-107); Estimated GFR-MDRD 72; Glucose 157 mg/dL (70-105); Potassium 3.8 mmol/L (3.5-5.1); Sodium 135 mmol/L (136-145)
[2017-05-24] MEDS: HumaLOG 300 UNITS/3 ML VIAL SC PRN ×3 (06:11→17:48)
[2017-05-24] MEDS: Famotidine/PF 20 mg/2ml Vial SLOW IVP SCH ×2 (09:11→20:39)
[2017-05-24] MEDS: Docusate 100 MG CAP PO SCH ×2 (09:11→20:37)
[2017-05-24] MEDS: Gemfibrozil 600 MG TAB PO SCH ×2 (09:11→17:49)
[2017-05-24] MEDS: Metoprolol Tartrate 25 MG TAB PO SCH ×2 (09:15→20:27)
[2017-05-24] MEDS: Vancomycin HCl 1.75 GM in Sodium Chloride 0.9% 500 ML IVPB SCH ×2 (09:54→20:56)
--- NOTE | 2017-05-24 10:15 | CON ---
DATE OF CONSULTATION: 05/24/2017 HISTORY OF PRESENT ILLNESS: Robel Black is a 57-year-old male patient admitted by [facility] yesterday because of left foot wound. The patient has had a neuropathic ulcer beneath the metatarsophalangeal joint of the left second toe with swelling of the left second toe and deviation medially of the left second toe for many months. He saw Dr. Crockett in Wound Care recently, had been treating with silver dressing. He was admitted to the hospital on this occasion 05/23/2017 yesterda y, placed on intravenous antibiotics and x-rays revealed some changes in the phalanx and metatarsal h ead of the left second metatarsal suggestive of erosive changes. The patient was placed on intraveno us antibiotics. He has had previous amputation of left great toe and metatarsal on 08/11/2016 healin g by secondary intention. On 08/07/2016 Dr. Conti performed a left fem-pop bypass. He has had amput ation of the right great toe through the proximal phalanx 02/21/2015. On 07/22/2015 amputation of th e right second toe to the proximal phalanx and on 11/22/2015, amputation of the right first and secon d toes and metatarsals, resection of sesamoid bones, drainage of abscess and debridement of neuropath ic plantar ulcers. ALLERGIES: LISINOPRIL. TOBACCO: None. ALCOHOL: Rarely. SOCIAL HISTORY: The patient is a toolroom machinist. PAST MEDICAL HISTORY: Type 2 diabetes mellitus, hypertension and dyslipidemia. PAST SURGICAL HISTORY: Coronary bypass grafting, hernia repair, amputations and left fem-pop bypass as described above. MEDICATIONS: Lopid 600 mg b.i.d., Glucophage/metformin 500 mg b.i.d., nitroglycerin p.r.n., metoprol ol 25 b.i.d., Plavix 75 a.m., atorvastatin 40 mg at bedtime, aspirin 81 mg a day. REVIEW OF SYSTEMS: Ten point noncontributory. PHYSICAL EXAMINATION: VITAL SIGNS: Weight 270 pounds, 6 foot 3, 33 BMI, 97.6, 78, 93%, 113/69. HEENT: Unremarkable. LUNGS: Clear to auscultation. CARDIAC: Regular rate and rhythm without murmur or gallop. ABDOMEN: Soft, nontender. EXTREMITIES: Unremarkable. Palpable pedal pulses. Left foot indicative of patent left fem-pop bypa ss performed by Dr. Conti last year. Hair on his feet. Previous amputation well healed left great t oe and metatarsal. Deviation of left second toe medially with swelling and edema left second toe. H e has a neuropathic ulcer beneath the metatarsophalangeal joint of the left second toe. This extends into the bone when probed with a Q-tip. There is purulent discharge. LABORATORY: White count 7, hemoglobin 14. Basic metabolic profile normal, renal function normal. ASSESSMENT AND PLAN: 1. Diabetic neuropathic ulcer, left foot, with osteomyelitis and wound extending to the metatarsopha langeal joint, left second toe. There is extensive swelling of left second toe and deviation and bon y changes suggestive of osteomyelitis. I would recommend amputation of left second toe and metatarsa l healing by secondary intention. We will consult Wound Care and case management to arrange outpatie nt wound care with home VAC and outpatient [facility] wound care appointments. He should be able to be disc harged home 2-3 days postoperatively on oral antibiotics. Vascular supply is intact. He is a nonsmo ker. 2. Diabetes mellitus. 3. Obesity. 4. Hypertension.
--- NOTE | 2017-05-24 15:03 | MRI ---
MRI OF THE LEFT FOREFOOT WITH AND WITHOUT IV CONTRAST: Date: 05-24-17 Provided Clinical History: Left forefoot ulcer. FINDINGS: Comparison is made with the study dated 08-03-16. Evaluation is limited due to patient motion. Interval post-operative changes of resection of the first ray distal to the mid first metatarsal. There is greater than physiologic fluid present in the second MTP joint. There is probable patchy sig nal alteration on fluid sensitive sequences within the second metatarsal head and second proximal pha lanx. Regional marrow signal appears otherwise unremarkable. Diffuse signal alteration in the left intrinsi c foot musculature is noted, typical for diabetic patients. Evaluation for the integrity of the extensor and flexor tendons is limited due to patient motion, wit hout gross evidence for disruption. Post-operative changes of the great toe tendons are noted. No maverick dence for significant tenosynovial fluid. No evidence for a soft tissue fluid collection to suggest a bscess. IMPRESSION: 1. Limited study due to patient motion. Changes at the second MTP joint may reflect septic arthritis with associated periarticular ostitis/early osteomyelitis. POS: Machelle
--- NOTE | 2017-05-24 19:44 | PDOC.PN ---
- Subjective Encounter Start Date: 05/24/17 Encounter Start Time: 18:00 Subjective: nsg notes rev, shayne ovn, no new c/o, no foot pain, understands POC -: "this is my fifth amputation" - Objective Resuscitation Status: Resuscitation Status FULL:Full Resuscitation Vital Signs & Weight: Vital Signs (12 hours) Temp Pulse Resp BP Pulse Ox 05/24/17 15:45 97.7 F 76 18 101/54 L 96 05/24/17 11:20 97.9 F 75 20 98/50 L 94 L 05/24/17 08:00 97.6 F 78 20 93 L Weight Admit Weight 270 lb 12.8 oz Weight 270 lb 12.8 oz I&O: 05/23/17 05/24/17 05/25/17 06:59 06:59 06:59 Intake Total 1140 2850 Output Total 975 300 Balance 165 2550 Result Diagrams: 05/24/17 05:33 05/24/17 05:33 Additional Labs: Accuchecks 05/24/17 05/24/17 05/24/17 15:55 11:34 05:47 POC Glucose 214 H 218 H 195 H 05/24/17 05/23/17 00:04 20:41 POC Glucose 154 H 183 H Phys Exam - Physical Examination Constitutional: NAD HEENT: PERRLA, moist MMs, sclera anicteric Respiratory: no wheezing, no rales, no rhonchi, clear to auscultation bilateral Cardiovascular: RRR, no significant murmur, no rub Gastrointestinal: soft, no distention, positive bowel sounds Neurological: moves all 4 limbs Psychiatric: normal affect, A&O x 3 Dx/Plan - Plan * diabetic neuropathic ulcer with osteomyelitis * MRI reviewed * appreciate surgical consultation * plan for OR in AM for likely amputation of L great toe DM * accuchecks * hgba1c in AM diet: diabetic, NPO after midnight activity: as elizabeth dvt ppx Review of Systems - Medications/Allergies Allergies/Adverse Reactions: Allergies Allergy/AdvReac Type Severity Reaction Status Date / Time lisinopril Allergy Uncoded 02/18/17 05:51 Medications: Current Medications Acetaminophen (Tylenol) 650 mg PO Q4H PRN PRN Reason: Headache/Fever or Pain Hydrocodone Bitart/Acetaminophen (Lima 5/325) 1 tab PO Q4H PRN PRN Reason: Moderate Pain (4-6) Last Admin: 05/24/17 19:39 Dose: 1 tab Atorvastatin Calcium (Lipitor) 40 mg PO [facility] Last Admin: 05/23/17 20:40 Dose: 40 mg Dextrose/Water (Dextrose 50%) 25 gm SLOW IVP PRN PRN PRN Reason: Hypoglycemia Docusate Sodium (Colace) 100 mg PO BID [facility] Last Admin: 05/24/17 09:11 Dose: 100 mg Famotidine (Pepcid) 20 mg SLOW IVP Q12HR [facility] Last Admin: 05/24/17 09:11 Dose: 20 mg Gemfibrozil (Lopid) 600 mg PO BID[facility] Last Admin: 05/24/17 17:49 Dose: 600 mg Glucagon (Glucagon) 1 mg IM PRN PRN PRN Reason: Hypoglycemia Dextrose/Water (D5w) 1,000 mls @ 0 mls/hr IV .Q0M PRN; As Directed PRN Reason: Hypoglycemia Insulin Detemir 20 units/ (Miscellaneous Medication) 0.2 mls @ 0 mls/hr SC [facility] Last Admin: 05/23/17 20:40 Dose: 0.2 mls Piperacillin Sod/Tazobactam (Sod 4.5 gm/ Sodium Chloride) 100 mls @ 200 mls/hr IVPB 0200,0800,1400,2000 [facility] Last Admin: 05/24/17 19:40 Dose: 100 mls Vancomycin HCl 1.75 gm/ Sodium (Chloride) 500 mls @ 250 mls/hr IVPB Q12HR [facility] Last Admin: 05/24/17 09:54 Dose: 500 mls Sodium Chloride (Normal Saline 0.9%) 1,000 mls @ 100 mls/hr IV .Q10H [facility] Insulin Human Lispro (Humalog) 0 units SC .MODERATE SLIDING SC PRN PRN Reason: Moderate Correctional Scale Last Admin: 05/24/17 17:48 Dose: 4 unit Metoprolol Tartrate (Lopressor) 25 mg PO BID [facility] Last Admin: 05/24/17 09:15 Dose: 25 mg Nitroglycerin (Nitrostat) 0.4 mg SL Q5MIN PRN PRN Reason: Chest Pain Ondansetron HCl (Zofran) 4 mg IVP Q6H PRN PRN Reason: Nausea/Vomiting
[2017-05-24] MEDS: Insulin Detemir 100 UNITS/ML 20 UNITS in Admixture Fee 1 EACH SC SCH (20:36)
[2017-05-24] MEDS: Atorvastatin Calcium 40 MG TAB PO SCH (20:37)
[2017-05-25] MEDS: Piperacillin/Tazobactam 4.5 GM in Sodium Chloride 0.9% 100 ML IVPB SCH ×4 (02:06→20:25)
[2017-05-25 06:13] LABS: Hemoglobin A1c 7.8 % (4.0-6.0)
[2017-05-25] MEDS ORDERED: Sodium Chloride 0.9% 1,000 ML IV SCH (08:00)
[2017-05-25] MEDS: Famotidine/PF 20 mg/2ml Vial SLOW IVP SCH ×2 (08:37→20:27)
[2017-05-25] MEDS: Metoprolol Tartrate 25 MG TAB PO SCH ×2 (08:37→20:29)
[2017-05-25] MEDS: Gemfibrozil 600 MG TAB PO SCH ×2 (08:39→15:53)
[2017-05-25] MEDS: Docusate 100 MG CAP PO SCH ×2 (08:39→20:29)
[2017-05-25] MEDS: Vancomycin HCl 1.75 GM in Sodium Chloride 0.9% 500 ML IVPB SCH ×2 (09:24→21:42)
[2017-05-25] MEDS ORDERED: Midazolam HCl 2 mg/2 ml Vial ONE (11:51)
[2017-05-25] MEDS ORDERED: Fentanyl 100 MCG/2 ML VIAL ONE (11:51)
[2017-05-25] MEDS ORDERED: Diprivan 0 ML ONE (11:51)
[2017-05-25] MEDS ORDERED: Ondansetron HCl/PF 4 MG/2 ML Vial IVP PRN (13:40)
[2017-05-25] MEDS ORDERED: Promethazine HCl 25 MG/ML VIAL SLOW IVP PRN (13:40)
[2017-05-25] MEDS ORDERED: Promethazine HCl 25 MG/ML VIAL IM PRN (13:40)
--- NOTE | 2017-05-25 13:45 | OP ---
DATE OF PROCEDURE: 05/25/2017 PREOPERATIVE DIAGNOSES: Diabetic neuropathic ulcer, left plantar foot with history of peripheral art erial disease, status post left femoral-popliteal bypass and palpable pedal pulse with osteomyelitis of left second toe metatarsophalangeal joint, both clinically and by MRI. History of amputation of l eft great toe and metatarsal vein secondarily. SURGEON: Dr. Bulmaro Gurrola ANESTHESIA: Regional TIVA. Note, excellent blood supply. PLAN: Discharge home in 24-48 hours with home VAC, on oral antibiotics, expect good wound healing, k eep weight off the field until the wound heals to prevent ulceration of the heel, place pillow or kate nkets on her left leg. PROCEDURE PERFORMED: Amputation of left second toe and metatarsal. Wound left open to heal by goldieon sergo burnette. Wound care team placed a wound VAC. PROCEDURE IN DETAIL: Patient taken to the operating room where under regional anesthesia and intrave nous sedation, left lower extremity was prepared with ChloraPrep, draped in routine fashion and the l eft second toe and metatarsal amputated by making an incision around the plantar neuropathic ulcer sp aring as much skin as possible. Racquet incision over the dorsal foot to the metatarsal transecting the metatarsal with a bone cutter and debriding soft tissues. Soft tissues were healthy without puru lence. Hemostasis gained with cautery. Connective tissue debrided. Good hemostasis obtained. Woun d irrigated. Wound care team arrived and placed a wound VAC.
[2017-05-25] MEDS ORDERED: Acetaminophen 500 MG TAB PO PRN (13:54)
[2017-05-25] MEDS ORDERED: traMADol HCl 50 MG TAB PO PRN ×2 (13:54)
[2017-05-25] MEDS ORDERED: Lidocaine 1% PF 5 ML VIAL ONE (14:35)
[2017-05-25] MEDS ORDERED: Propofol 200 MG/20 ML VIAL ONE (14:35)
[2017-05-25] MEDS: HumaLOG 300 UNITS/3 ML VIAL SC PRN (18:25)
[2017-05-25] MEDS: Insulin Detemir 100 UNITS/ML 20 UNITS in Admixture Fee 1 EACH SC SCH (20:24)
[2017-05-25] MEDS: Atorvastatin Calcium 40 MG TAB PO SCH (20:28)
--- NOTE | 2017-05-25 23:40 | PDOC.PN ---
- Subjective Encounter Start Date: 05/25/17 Encounter Start Time: 17:00 Subjective: nsg notes rev, shayne ovn, no new c/o - Objective Resuscitation Status: Resuscitation Status FULL:Full Resuscitation Vital Signs & Weight: Vital Signs (12 hours) Temp Pulse Resp BP Pulse Ox 05/25/17 20:00 98.4 F 109 H 20 147/73 H 97 05/25/17 16:00 97.9 F 70 18 113/53 L 94 L 05/25/17 15:00 97.8 F 70 18 128/72 94 L 05/25/17 14:00 97.8 F 67 16 125/66 96 Weight Admit Weight 270 lb 12.8 oz Weight 270 lb 12.8 oz I&O: 05/24/17 05/25/17 05/26/17 06:59 06:59 06:59 Intake Total 1140 2850 2290 Output Total 975 1450 1100 Balance 165 1400 1190 Result Diagrams: 05/24/17 05:33 05/24/17 05:33 Additional Labs: Accuchecks 05/25/17 05/25/17 05/25/17 19:52 15:52 10:32 POC Glucose 142 H 185 H 150 H 05/25/17 05:38 POC Glucose 139 H Phys Exam - Physical Examination Constitutional: NAD HEENT: PERRLA, moist MMs, sclera anicteric Respiratory: no wheezing, no rales, no rhonchi, clear to auscultation bilateral Cardiovascular: RRR, no significant murmur, no rub Gastrointestinal: soft, positive bowel sounds Neurological: moves all 4 limbs Dx/Plan - Plan * diabetic neuropathic ulcer with osteomyelitis * MRI reviewed * appreciate surgical consultation * post amputation, appears to be stable, no complications * wound vac in place DM * accuchecks * hgba1c in AM diet: diabetic activity: as elizabeth dvt ppx discharge planning - will need wound vac o/p Review of Systems - Medications/Allergies Allergies/Adverse Reactions: Allergies Allergy/AdvReac Type Severity Reaction Status Date / Time lisinopril Allergy Uncoded 02/18/17 05:51
[2017-05-26] MEDS: Piperacillin/Tazobactam 4.5 GM in Sodium Chloride 0.9% 100 ML IVPB SCH ×3 (02:14→15:31)
[2017-05-26] MEDS: Gemfibrozil 600 MG TAB PO SCH ×2 (08:34→18:10)
[2017-05-26] MEDS: Metoprolol Tartrate 25 MG TAB PO SCH ×2 (08:34→20:21)
[2017-05-26] MEDS: Famotidine/PF 20 mg/2ml Vial SLOW IVP SCH ×2 (08:34→20:23)
[2017-05-26] MEDS: Polyethylene Glycol 3350 17 GM Packet PO SCH (08:34)
[2017-05-26] MEDS: Docusate 100 MG CAP PO SCH ×2 (08:34→20:17)
[2017-05-26] MEDS: Sulfameth/Trimethoprim DS 800-160mg TAB PO SCH ×2 (09:25→20:22)
[2017-05-26] MEDS: Atorvastatin Calcium 40 MG TAB PO SCH (20:22)
[2017-05-26] MEDS: Ciprofloxacin 500 MG TAB PO SCH (20:22)
[2017-05-26] MEDS: Insulin Detemir 100 UNITS/ML 20 UNITS in Admixture Fee 1 EACH SC SCH (20:24)
--- NOTE | 2017-05-26 20:47 | PRG ---
DATE OF SERVICE: 05/26/2017 Robel Black is doing well today. His wound VAC is in place. It will be changed tomorrow. His dis charge is pending wound VAC availability. The patient has outpatient wound care [facility], und VAC care Wednesday and . I will see him in Wound Care in about 2-3 weeks. I have changed h is antibiotics to Bactrim and Cipro p.o. and discontinued his IV vancomycin as his sensitivities reve al this for Staphylococcus aureus cultures. At this point, I will see him as needed this hospitaliza tion. Please call if necessary.
--- NOTE | 2017-05-26 23:23 | PDOC.PN ---
- Subjective Encounter Start Date: 05/26/17 Encounter Start Time: 18:00 Subjective: nsg notes rev, shayne ovn, no new c/o, denies any pain, waiting for -: wound vac availability outpatient - Objective Resuscitation Status: Resuscitation Status FULL:Full Resuscitation Vital Signs & Weight: Vital Signs (12 hours) Temp Pulse Resp BP Pulse Ox 05/26/17 20:00 99.0 F 75 16 94 L 05/26/17 19:41 99.0 F 75 16 116/57 L 94 L Weight Admit Weight 270 lb 12.8 oz Weight 270 lb 12.8 oz I&O: 05/25/17 05/26/17 05/27/17 06:59 06:59 06:59 Intake Total 2850 3190 1680 Output Total 1450 3500 Balance 1400 -310 1680 Result Diagrams: 05/24/17 05:33 05/24/17 05:33 Additional Labs: Accuchecks 05/26/17 05/26/17 05/26/17 19:46 15:43 11:39 POC Glucose 228 H 106 170 H 05/26/17 05:35 POC Glucose 119 H Phys Exam - Physical Examination Constitutional: NAD HEENT: PERRLA, moist MMs, sclera anicteric Neck: no nodes Respiratory: no wheezing, no rales, no rhonchi, clear to auscultation bilateral Cardiovascular: RRR, no significant murmur, no rub Gastrointestinal: soft, non-tender, positive bowel sounds Neurological: moves all 4 limbs Psychiatric: normal affect, A&O x 3 Dx/Plan - Plan * diabetic neuropathic ulcer with osteomyelitis * appreciate surgical consultation * post amputation, appears to be stable, no complications * wound vac in place DM * accuchecks * hgba1c in AM diet: diabetic activity: as elizabeth dvt ppx discharge planning - will need wound vac o/p Review of Systems - Medications/Allergies Allergies/Adverse Reactions: Allergies Allergy/AdvReac Type Severity Reaction Status Date / Time lisinopril Allergy Uncoded 02/18/17 05:51 Medications: Current Medications Acetaminophen (Tylenol) 650 mg PO Q4H PRN PRN Reason: Headache/Fever or Pain Acetaminophen (Tylenol) 1,000 mg PO Q6H PRN PRN Reason: Moderate to Severe Pain (6-10) Atorvastatin Calcium (Lipitor) 40 mg PO HS [facility] Last Admin: 05/26/17 20:22 Dose: 40 mg Ciprofloxacin (Cipro) 500 mg PO 06,1999 [facility] Last Admin: 05/26/17 20:22 Dose: 500 mg Dextrose/Water (Dextrose 50%) 25 gm SLOW IVP PRN PRN PRN Reason: Hypoglycemia Docusate Sodium (Colace) 100 mg PO BID [facility] Last Admin: 05/26/17 20:17 Dose: Not Given Famotidine (Pepcid) 20 mg SLOW IVP Q12HR [facility] Last Admin: 05/26/17 20:23 Dose: Not Given Gemfibrozil (Lopid) 600 mg PO BID-[facility] Last Admin: 05/26/17 18:10 Dose: 600 mg Glucagon (Glucagon) 1 mg IM PRN PRN PRN Reason: Hypoglycemia Dextrose/Water (D5w) 1,000 mls @ 0 mls/hr IV .Q0M PRN; As Directed PRN Reason: Hypoglycemia Insulin Detemir 20 units/ (Miscellaneous Medication) 0.2 mls @ 0 mls/hr SC [facility] Last Admin: 05/26/17 20:24 Dose: 0.2 mls Insulin Human Lispro (Humalog) 0 units SC .MODERATE SLIDING SC PRN PRN Reason: Moderate Correctional Scale Last Admin: 05/25/17 18:25 Dose: 2 unit Metoprolol Tartrate (Lopressor) 25 mg PO BID [facility] Last Admin: 05/26/17 20:21 Dose: Not Given Nitroglycerin (Nitrostat) 0.4 mg SL Q5MIN PRN PRN Reason: Chest Pain Ondansetron HCl (Zofran) 4 mg IVP Q6H PRN PRN Reason: Nausea/Vomiting Polyethylene Glycol (Miralax) 17 gm PO DAILY [facility] Last Admin: 05/26/17 08:34 Dose: Not Given Tramadol HCl (Ultram) 50 mg PO Q6H PRN PRN Reason: Moderate Pain (4-6) Tramadol HCl (Ultram) 100 mg PO Q6H PRN PRN Reason: Severe Pain (7-10) Trimethoprim/Sulfamethoxazole (Bactrim Ds) 1 tab PO BID [facility] Last Admin: 05/26/17 20:22 Dose: 1 tab
[2017-05-27] MEDS: Ciprofloxacin 500 MG TAB PO SCH (05:45)
[2017-05-27 08:22] VITALS: BP 131/76; TEMP 98.8
[2017-05-27] MEDS: Metoprolol Tartrate 25 MG TAB PO SCH (08:40)
[2017-05-27] MEDS: Sulfameth/Trimethoprim DS 800-160mg TAB PO SCH (08:40)
[2017-05-27] MEDS: Gemfibrozil 600 MG TAB PO SCH (08:40)
[2017-05-27] MEDS: Docusate 100 MG CAP PO SCH (08:41)
[2017-05-27] MEDS: Polyethylene Glycol 3350 17 GM Packet PO SCH (08:41)
[2017-05-27] MEDS ORDERED: Famotidine 20 MG TAB PO SCH (09:00)
== END 2017-05-27 12:58 | disposition home or self-care (01) | DRG 617 ==
LOC: ERS 13:07 → OBSVTOIN 19:17 → ONC 19:17
PROVIDERS: ADMIT Family Medicine; ATTEND Family Medicine
PROC: 0Y6S0Z0 Detachment at Left 2nd Toe, Complete, Open Approach (ICD-10-PCS; principal; 2017-05-25)
DX: E11.621 Type 2 diabetes mellitus with foot ulcer (principal); M86.172 Other acute osteomyelitis, left ankle and foot; E11.40 Type 2 diabetes mellitus with diabetic neuropathy, unspecified; E66.01 Morbid (severe) obesity due to excess calories; I11.0 Hypertensive heart disease with heart failure; I50.32 Chronic diastolic (congestive) heart failure; L03.90 Cellulitis, unspecified; E11.69 Type 2 diabetes mellitus with other specified complication; L97.529 Non-pressure chronic ulcer of other part of left foot with unspecified severity; I10 Essential (primary) hypertension; Z89.422 Acquired absence of other left toe(s); Z95.1 Presence of aortocoronary bypass graft; I25.10 Atherosclerotic heart disease of native coronary artery without angina pectoris; E78.5 Hyperlipidemia, unspecified; Z89.412 Acquired absence of left great toe; Z87.891 Personal history of nicotine dependence; Z68.33 Body mass index [BMI] 33.0-33.9, adult
CPT/HCPCS: 36415; 36416; 80048; 80053; 80202; 83036; 83605; 83880; 85025; 86140; 87040; 87070; 87077; 87186; 87205; 88305; 88311; 93005; 93010; 93306; 96365; 96375; G8978-GP-CK; G8979-GP-CK; G8980-GP-CK; G8987-GO-CI; G8988-GO-CI; G8989-GO-CI; J0696; J1815; J2001; J2250; J2543; J2704; J3010; J3370; J7050; S0028

== ENCOUNTER 2017-05-31 11:06 | Outpatient (CLI) | payer OTHER, SELFPAY ==
[2017-05-31] MEDS ORDERED: Lidocaine 2% Jelly 5 ML TUBE ONE (11:11)
[2017-05-31] MEDS ORDERED: Sodium Chloride 0.9% 15 ML NEB ONE (11:11)
--- NOTE | 2017-05-31 14:11 | PRG ---
DATE OF SERVICE: 05/31/2017 HISTORY: Mr. Robel Black is a very pleasant 57-year-old gentleman who presents to the Wound Center for evaluation of a wound of the left foot subsequent to amputation of the left second toe and metatarsal on 05/25/2017. Negative pressure therapy was initiated intraoperatively, and upon discharge from [facility], the patient was referred to the Wound Center for assistance with dressing changes of the wound VAC. The patient was admitted to [facility] on 05/23/2017 with left foot pain. MRI of the left forefoot with and without contrast on 05/24/2017 revealed changes at the second metatarsophalangeal joint consistent with septic arthritis with associated periarticular osteitis or early osteomyelitis. Also during the patient's hospital stay, Mr. Blakc was seen in consultation by General Surgery and was taken to the operating room on 05/25/2017 where he underwent amputation of the left second toe and metatarsal as stated previously. PHYSICAL EXAMINATION: VITAL SIGNS: Temperature 98.3, pulse 91, respirations 18, blood pressure 128/ 83. Accu-Chek 130. EXTREMITIES: A wound of the left foot subsequent to amputation of the left second toe and metatarsal is present. Granulation tissue is present within the wound margins. No purulent drainage is associated with the wound. No erythema of the skin surrounding the wound is present. No maceration of the skin of the periwound is noted. A dorsalis pedis pulse and a posterior tibial pulse are both palpable on the left. No significant edema of the left foot is present on exam today. ASSESSMENT AND PLAN: 1. Left foot wound as described above. Negative pressure therapy will be continued with dressing changes of the wound VAC 2 times per week here in the Wound Center. The patient will be seen by Dr. Gurrola in 1 week. I will see Mr. Black again in two weeks. 2. Diabetes mellitus. The patient's Accu-Chek in clinic today is 130. The patient has been reminded that for optimal wound healing, his blood glucoses should remain below 150. 3. Coronary artery disease. 4. Hypertension. [facility]
== END 2017-05-31 11:07 | disposition home or self-care (01) ==
LOC: WCC 11:06
PROVIDERS: ATTEND Family Medicine
DX: T87.89 Other complications of amputation stump (principal); E11.69 Type 2 diabetes mellitus with other specified complication; I25.10 Atherosclerotic heart disease of native coronary artery without angina pectoris; I10 Essential (primary) hypertension; Z89.422 Acquired absence of other left toe(s)
CPT/HCPCS: 97605; 99213; A4218; G0463

== ENCOUNTER 2017-06-03 14:55 | Outpatient (CLI) | payer OTHER, SELFPAY ==
[~2017-06-03 14:55] MED LIST: Sodium Chloride 0.9% 15 ML NEB ONE
== END 2017-06-03 14:56 | disposition home or self-care (01) ==
LOC: WCC 14:55
PROVIDERS: ATTEND Family Medicine
DX: T81.89XD Other complications of procedures, not elsewhere classified, subsequent encounter (principal); E11.621 Type 2 diabetes mellitus with foot ulcer; L03.031 Cellulitis of right toe; L97.519 Non-pressure chronic ulcer of other part of right foot with unspecified severity; Z89.422 Acquired absence of other left toe(s); Z89.421 Acquired absence of other right toe(s)
CPT/HCPCS: 97605; A4218

== ENCOUNTER 2017-06-07 15:00 | Outpatient (CLI) | payer OTHER, SELFPAY | END 2017-06-07 15:01 | disposition home or self-care (01) | LOC: WCC 15:00 | PROVIDERS: ATTEND Family Medicine | DX: T81.89XD Other complications of procedures, not elsewhere classified, subsequent encounter (principal); Z89.422 Acquired absence of other left toe(s) | CPT/HCPCS: 97605; A4218 ==

== ENCOUNTER 2017-06-10 14:36 | Outpatient (CLI) | payer OTHER, SELFPAY | END 2017-06-10 14:37 | disposition home or self-care (01) | LOC: WCC 14:36 | PROVIDERS: ATTEND Family Medicine | DX: T81.89XD Other complications of procedures, not elsewhere classified, subsequent encounter (principal); Z89.422 Acquired absence of other left toe(s) | CPT/HCPCS: 97605 ==

== ENCOUNTER 2017-06-14 09:06 | Outpatient (CLI) | payer OTHER, SELFPAY ==
--- NOTE | 2017-06-14 10:46 | PRG ---
DATE OF SERVICE: 06/14/2017 HISTORY: Mr. Robel Black is a very pleasant 57-year-old gentleman who presents to the Wound Center for evaluation of a wound of the left foot subsequent to amputation of the left second toe an d metatarsal on 05/25/2017. Negative pressure therapy was initiated intraoperatively and upon discha rge from [facility], the patient was referred to the Wound Center for assistan ce with dressing changes of the wound VAC. The patient was admitted to [facility] on 05/23/2017 with left foot pain. MRI of the left forefoot with and without contrast on 2017 revealed changes at the second metatarsophalangeal joint consistent with septic arthritis with a ssociated periarticular osteitis or early osteomyelitis. Also, during the patient's hospital stay, Christiano Black was seen in consultation by General Surgery and was taken to the operating room on 05/25/19 where he underwent amputation of the left second toe and metatarsal as stated previously. PHYSICAL EXAMINATION: VITAL SIGNS: Temperature 98.2, pulse 76, respirations 17, blood pressure 118/73. Accu-Chek 137. EXTREMITIES: A wound of the left foot subsequent to amputation of the left second toe and metatarsal is present. The dimensions of the wound are approximately 5.5 x 2.5 cm. Granulation tissue is pres ent within the wound margins. No purulent drainage is associated with the wound. No erythema of the skin surrounding the wound is present. No maceration of the skin of the periwound is noted. ASSESSMENT AND PLAN: 1. Left foot wound as described above. Negative pressure therapy will be continued with dressing ch anges of the wound VAC 2 times per week here in the Wound Center. The patient will be seen by Dr. Robison in 1 week. I will see Mr. Black again in two weeks. 2. Diabetes mellitus. The patient's Accu-Chek in clinic today is 137. The patient has been reminde d that for optimal wound healing, his blood glucoses should remain below 150. 3. Coronary artery disease. 4. Hypertension.
== END 2017-06-14 09:07 | disposition home or self-care (01) ==
LOC: WCC 09:06
PROVIDERS: ATTEND Family Medicine
DX: T87.89 Other complications of amputation stump (principal); E11.69 Type 2 diabetes mellitus with other specified complication; I25.10 Atherosclerotic heart disease of native coronary artery without angina pectoris; I10 Essential (primary) hypertension; Z89.422 Acquired absence of other left toe(s)
CPT/HCPCS: 97605; A4218

== ENCOUNTER 2017-06-17 14:36 | Outpatient (CLI) | payer OTHER, SELFPAY | END 2017-06-17 14:37 | disposition home or self-care (01) | LOC: WCC 14:36 | PROVIDERS: ATTEND Family Medicine | DX: T81.89XD Other complications of procedures, not elsewhere classified, subsequent encounter (principal); Z89.422 Acquired absence of other left toe(s); Z88.8 Allergy status to other drugs, medicaments and biological substances | CPT/HCPCS: 97605; A4218 ==

== ENCOUNTER 2017-06-21 10:20 | Outpatient (CLI) | payer OTHER, SELFPAY | END 2017-06-21 10:21 | disposition home or self-care (01) | LOC: WCC 10:20 | PROVIDERS: ATTEND Family Medicine | DX: T81.89XD Other complications of procedures, not elsewhere classified, subsequent encounter (principal); Z89.432 Acquired absence of left foot; Z88.8 Allergy status to other drugs, medicaments and biological substances | CPT/HCPCS: 97605; A4218 ==

== ENCOUNTER 2017-06-24 09:13 | Outpatient (CLI) | payer OTHER ==
[2017-06-24] MEDS ORDERED: Sodium Chloride 0.9% 15 ML NEB ONE (16:30)
== END 2017-06-24 09:14 | disposition home or self-care (01) ==
LOC: WCC 09:13
PROVIDERS: ATTEND Family Medicine
DX: T81.89XD Other complications of procedures, not elsewhere classified, subsequent encounter (principal); Z89.432 Acquired absence of left foot
CPT/HCPCS: 97605; A4218

== ENCOUNTER 2017-06-28 09:32 | Outpatient (CLI) | payer OTHER ==
--- NOTE | 2017-06-28 10:27 | PRG ---
DATE OF SERVICE: 06/28/2017 HISTORY: Mr. Robel Black is a very pleasant 57-year-old gentleman who presents to the Wound Center for evaluation of a wound of the left foot subsequent to amputation of the left second toe an d metatarsal on 05/25/2017. Negative pressure therapy was initiated intraoperatively and upon discha rge from [facility], the patient was referred to the Wound Center for assistan ce with dressing changes of the wound VAC. The patient was admitted to [facility] on 05/23/2017 with left foot pain. MRI of the left forefoot with and without contrast on 2017 revealed changes at the second metatarsophalangeal joint consistent with septic arthritis with a ssociated periarticular osteitis or early osteomyelitis. Also, during the patient's hospital stay, Christiano Black was seen in consultation by General Surgery and was taken to the operating room on 05/25/19 18 where he underwent amputation of the left second toe and metatarsal as stated previously. PHYSICAL EXAMINATION: VITAL SIGNS: Temperature 98.5, pulse 85, respirations 19, blood pressure 131/80. Accu-Chek 130. EXTREMITIES: A wound of the left foot subsequent to amputation of the left second toe and metatarsal is present. The dimensions of the wound are approximately 2.0 x 3.9 cm. The dimensions of the woun d at the time of the patient's visit on 06/14/2017 were approximately 5.5 x 2.5 cm. Granulation tiss ue is present within the wound margins. Necrotic and nonviable tissue present within the wound itz ns was debrided with an excisional full-thickness debridement with the use of a curette. No purulent drainage is associated with the wound. No erythema of the skin surrounding the wound is present. N o maceration of the skin of the periwound is noted. A posterior tibial pulse is palpable on the left . No significant edema of the left foot is present on exam today. ASSESSMENT AND PLAN: 1. Left foot wound as described above. Negative pressure therapy will be continued with dressing ch anges of the wound VAC 2 times per week here in the Wound Center. The patient will be seen by Dr. Robison in 1 week. I will see Mr. Black again in two weeks. 2. Diabetes mellitus. The patient's Accu-Chek in clinic today is 130. The patient has been reminde d that for optimal wound healing, his blood glucoses should remain below 150. 3. Coronary artery disease. 4. Hypertension.
[2017-06-28] MEDS ORDERED: Sodium Chloride 0.9% 15 ML NEB ONE (19:51)
[2017-06-28] MEDS ORDERED: Lidocaine 2% Jelly 5 ML TUBE ONE (19:51)
== END 2017-06-28 09:33 | disposition home or self-care (01) ==
LOC: WCC 09:32
PROVIDERS: ATTEND Family Medicine
DX: T81.89XD Other complications of procedures, not elsewhere classified, subsequent encounter (principal); E11.9 Type 2 diabetes mellitus without complications; I10 Essential (primary) hypertension; I25.10 Atherosclerotic heart disease of native coronary artery without angina pectoris
CPT/HCPCS: A4218

== ENCOUNTER 2017-07-01 14:43 | Outpatient (CLI) | payer OTHER ==
[2017-07-02] MEDS ORDERED: Sodium Chloride 0.9% 15 ML NEB ONE (12:32)
== END 2017-07-01 14:44 | disposition home or self-care (01) ==
LOC: WCC 14:43
PROVIDERS: ATTEND Family Medicine
DX: T81.89XD Other complications of procedures, not elsewhere classified, subsequent encounter (principal); E11.621 Type 2 diabetes mellitus with foot ulcer; L97.519 Non-pressure chronic ulcer of other part of right foot with unspecified severity; L03.031 Cellulitis of right toe; Z89.421 Acquired absence of other right toe(s)
CPT/HCPCS: 97605

== ENCOUNTER 2017-07-05 09:09 | Outpatient (CLI) | payer OTHER | END 2017-07-05 09:10 | disposition home or self-care (01) | LOC: WCC 09:09 | PROVIDERS: ATTEND Family Medicine | DX: T81.89XD Other complications of procedures, not elsewhere classified, subsequent encounter (principal); Z89.422 Acquired absence of other left toe(s) | CPT/HCPCS: 97602 ==

== ENCOUNTER 2017-07-19 09:34 | Outpatient (CLI) | payer OTHER ==
--- NOTE | 2017-07-19 11:06 | PRG ---
DATE OF SERVICE: 07/19/2017 HISTORY: Mr. Robel Black is a very pleasant 57-year-old gentleman who presents to the Wound Center for evaluation of a wound of the left foot subsequent to amputation of the left second toe and metatarsal on 05/25/2017. Negative pressure therapy was initiated intraoperatively, and upon discharge from [facility], the patient was referred to the Wound Center for assistance with dressing changes of the wound VAC. The patient was admitted to [facility] on 05/23/2017 with left foot pain. MRI of the left forefoot with and without contrast on 05/24/2017 revealed changes at the second metatarsophalangeal joint consistent with septic arthritis with associated periarticular osteitis or early osteomyelitis. Also during the patient's hospital stay, Mr. Black was seen in consultation by General Surgery and was taken to the operating room on 05/25/2017 where he underwent amputation of the left second toe and metatarsal as stated previously. Since patient's visit on 06/28/2017, negative pressure therapy has been discontinued by Dr. Gurrola. The patient states he is performing dressing changes of Silvercel on a daily basis after cleansing and irrigation. PHYSICAL EXAMINATION: VITAL SIGNS: Temperature 98.3, pulse 73, respirations 18, blood pressure 126/ 77. Accu-Chek 125. EXTREMITIES: A wound of the left foot subsequent to amputation of the left second toe and metatarsal is present. The dimensions of the wound are approximately 2.5 x 0.6 cm. The dimensions of the wound at the time of the patient's visit on 06/28/2017 were approximately 2.0 x 3.9 cm. Granulation tissue is present within the wound margins. Necrotic and nonviable tissue present within the wound margins was debrided with an excisional full-thickness debridement with the use of a curette. No purulent drainage is associated with the wound. No erythema of the skin surrounding the wound is present. No maceration of the skin of the periwound is noted. A dorsalis pedis pulse is palpable on the left. No significant edema of the left foot is present on exam today. ASSESSMENT AND PLAN: 1. Left foot wound as described above. Dressing changes of Silvercel, 4 x 4s, and Kerlix are to be performed on a daily basis after cleansing and irrigation. The patient will be performing his own dressing changes. I will see Mr. Black again in 3 weeks. 2. Diabetes mellitus. The patient's Accu-Chek in clinic today is 125. The patient has been reminded that for optimal wound healing, his blood glucoses should remain below 150. 3. Coronary artery disease. 4. Hypertension. [facility]
[2017-07-19] MEDS ORDERED: Lidocaine 2% Jelly 5 ML TUBE ONE (18:58)
[2017-07-19] MEDS ORDERED: Sodium Chloride 0.9% 15 ML NEB ONE (18:58)
== END 2017-07-19 09:35 | disposition home or self-care (01) ==
LOC: WCC 09:34
PROVIDERS: ATTEND Family Medicine
DX: T81.89XD Other complications of procedures, not elsewhere classified, subsequent encounter (principal); E11.621 Type 2 diabetes mellitus with foot ulcer; L97.529 Non-pressure chronic ulcer of other part of left foot with unspecified severity; I25.10 Atherosclerotic heart disease of native coronary artery without angina pectoris; I10 Essential (primary) hypertension
CPT/HCPCS: 11042; A4218

== ENCOUNTER 2017-08-09 09:51 | Outpatient (CLI) | payer OTHER ==
[~2017-08-09 09:51] MED LIST changes: +Lidocaine 2% Jelly 5 ML TUBE ONE
--- NOTE | 2017-08-09 13:43 | PRG ---
DATE OF SERVICE: 08/09/2017 HISTORY: Mr. Robel Black is a very pleasant 57-year-old gentleman who presents to the Wound Center for evaluation of a wound of the left foot subsequent to amputation of the left second toe and metatarsal on 05/25/2017. Negative pressure therapy was initiated intraoperatively, and upon discharge from [facility], the patient was referred to the Wound Center for assistance with dressing changes of the wound VAC. The patient was admitted to [facility] on 05/23/2017 with left foot pain. MRI of the left forefoot with and without contrast on 05/24/2017 revealed changes at the second metatarsophalangeal joint consistent with septic arthritis with associated periarticular osteitis or early osteomyelitis. Also during the patient's hospital stay, Mr. Black was seen in consultation by General Surgery and was taken to the operating room on 05/25/2017 where he underwent amputation of the left second toe and metatarsal as stated previously. Since the patient's visit on 06/28/2017, negative pressure therapy has been discontinued by Dr. Gurrola. The patient states he continues to perform dressing changes of Silvercel on a daily basis after cleansing and irrigation. PHYSICAL EXAMINATION: VITAL SIGNS: Temperature 97.9, pulse 89, respirations 19, blood pressure 142/ 87. Accu-Chek 130. EXTREMITIES: A wound of the left foot subsequent to amputation of the left second toe and metatarsal is present. The dimensions of the wound are approximately 2.8 x 0.3 cm. The dimensions of the wound at the time of the patient's visit on 07/19/2017 were approximately 2.5 x 0.6 cm. Granulation tissue is present within the wound margins. Necrotic and nonviable tissue present within the wound margins was debrided with an excisional full-thickness debridement with the use of a curette. Desiccated tissue at the periphery of the wound was excised with the use of scissors. No purulent drainage is associated with the wound. No erythema of the skin surrounding the wound is present. No maceration of the skin of the periwound is noted. No significant edema of the left foot is present on exam today. ASSESSMENT AND PLAN: 1. Left foot wound as described above. Dressing changes of Silvercel, 4 x 4s, and Kerlix will be continued on a daily basis after cleansing and irrigation. The patient will continue to perform his own dressing changes. I will see Mr. Black again on 08/18/2017. At this time, he will also be seen by the solar energy advisor. 2. Diabetes mellitus. The patient's Accu-Chek in clinic today is 130. The patient has been reminded that for optimal wound healing, his blood glucoses should remain below 150. 3. Coronary artery disease. 4. Hypertension. MTDD
== END 2017-08-09 09:52 | disposition home or self-care (01) ==
LOC: WCC 09:51
PROVIDERS: ATTEND Family Medicine
DX: T81.89XD Other complications of procedures, not elsewhere classified, subsequent encounter (principal); E11.9 Type 2 diabetes mellitus without complications; I25.10 Atherosclerotic heart disease of native coronary artery without angina pectoris; I10 Essential (primary) hypertension; Z89.422 Acquired absence of other left toe(s)
CPT/HCPCS: 11042; A4218

== ENCOUNTER 2017-08-30 09:04 | Outpatient (CLI) | payer OTHER ==
--- NOTE | 2017-08-30 11:36 | PRG ---
DATE OF SERVICE: 08/30/2017 HISTORY: Mr. Robel Black is a very pleasant 57-year-old gentleman who presents to the Wound Center for evaluation of a wound of the left foot subsequent to amputation of the left second toe an d metatarsal on 05/25/2017. Negative pressure therapy was initiated intraoperatively and upon discha rge from [facility], the patient was referred to the Wound Center for assistan ce with dressing changes of the wound VAC. The patient was admitted to [facility] on 05/23/2017 with left foot pain. MRI of the left forefoot with and without contrast on 2017 revealed changes of the second metatarsophalangeal joint consistent with septic arthritis with a ssociated periarticular osteitis or early osteomyelitis. Also, during the patient's hospital stay, Christiano Black was seen in consultation by General Surgery and was taken to the operating room on 05/25/19 18 where he underwent amputation of the left second toe and metatarsal as stated previously. Since t he patient's visit on 06/28/2017 negative pressure therapy has been discontinued by Dr. Gurrola. The patient performed dressing changes of Silvercel on a daily basis after cleansing and irrigation until he began leaving his wound open to air a few days ago. PHYSICAL EXAMINATION: VITAL SIGNS: Temperature 98.4, pulse 84, respirations 18, blood pressure 133/79. Accu-Chek 130. EXTREMITIES: A wound of the left foot subsequent to amputation of the left second toe and metatarsal is present. The dimensions of the wound are approximately 3.0 x 1.0 cm. The dimensions of the woun d at the time of the patient's visit on 08/09/2017 were approximately 2.8 x 0.3 cm. Callus and nonvi able tissue associated with the wound was debrided with an excisional full-thickness debridement with the use of scissors. No purulent drainage is associated with the wound. No erythema of the skin sullivan rrounding the wound is present. No maceration of the skin of the periwound is noted. No significant edema of the left foot is present on exam today. ASSESSMENT AND PLAN: 1. Left foot wound as described above. The wound has almost healed completely and Mr. Black will b e discharged from clinic today with followup on a p.r.n. basis. The patient states that he was recen tly seen by the code clerk. The patient has been asked to remove the Medipore plus pad applied to hi s left foot wound today in 3 days. 2. Diabetes mellitus. The patient's Accu-Chek in clinic today is ____. The patient has been remind ed that for optimal wound healing, his blood glucoses should remain below 150. 3. Coronary artery disease. 4. Hypertension.
== END 2017-08-30 09:05 | disposition home or self-care (01) ==
LOC: WCC 09:04
PROVIDERS: ATTEND Family Medicine
DX: T81.89XD Other complications of procedures, not elsewhere classified, subsequent encounter (principal); E11.9 Type 2 diabetes mellitus without complications; I10 Essential (primary) hypertension; I25.10 Atherosclerotic heart disease of native coronary artery without angina pectoris; Z89.422 Acquired absence of other left toe(s)
CPT/HCPCS: 11042

== ENCOUNTER 2018-06-13 12:01 | Inpatient (IN) | payer OTHER, SELFPAY ==
[2018-06-13 13:10] LABS: #Eosinphils 0.2 thou/uL (0.0-0.7); #Lymphocytes 2.6 thou/uL (1.20-3.40); #Monocytes 0.7 thou/uL (0.11-0.59); #Neutrophils 7.6 thou/uL (1.40-6.50); %Basophils 0.2 % (0.0-1.0); %Eosinophils 1.9 % (0.0-10.0); %Lymphocytes 23.2 % (21.0-51.0); %Monocytes 6.4 % (0.0-10.0); %Neutrophils 68.2 % (42.0-75.0); Hemoglobin 17.5 g/dL (14.0-18.0); Mean Corpuscular HGB CONC 32.8 g/dL (32.0-36.0); Mean Corpuscular Hemoglobin 29.9 pg (27.0-31.0); Mean Platelet Volume 8.8 fL (7.4-10.4); Platelet Count 323 thou/uL (130-400); RBC Distribution Width 12.6 % (11.5-14.5); Red Blood Cell (RBC) Count 5.85 mill/uL (4.70-6.10); White Blood Cell (WBC) Count 11.1 thou/uL (4.8-10.8)
[2018-06-13 13:27] LABS: ALT (SGPT) 19 U/L (8-55); AST (SGOT) 7 U/L (5-34); Albumin 3.9 g/dL (3.5-5.0); Alkaline Phosphatase 109 U/L (40-150); Anion Gap 14 mmol/L (10-20); BUN (Urea Nitrogen) 16 mg/dL (8.4-25.7); Bilirubin, Total 0.3 mg/dL (0.2-1.2); Calc. Creatinine Clearance 0 mL/min (70-130); Calcium 9.9 mg/dL (7.8-10.44); Carbon Dioxide 22 mmol/L (22-29); Chloride 104 mmol/L (98-107); Estimated GFR-MDRD 64; Globulin 4.3 g/dL (2.4-3.5); Glucose 269 mg/dL (70-105); Potassium 4.1 mmol/L (3.5-5.1); Protein, Total 8.2 g/dL (6.0-8.3); Sodium 136 mmol/L (136-145)
[2018-06-13] MEDS ORDERED: Clindamycin/D5W 900 mg/50 ml Premix Bag ONE (16:11)
[2018-06-13] MEDS ORDERED: Piperacillin/Tazobactam 4.5 GM VIAL ONE (16:11)
[2018-06-13] MEDS ORDERED: Vancomycin HCl 1.75 GM in Sodium Chloride 0.9% 500 ML IVPB ONE (16:45)
--- NOTE | 2018-06-13 16:51 | RAD ---
RIGHT FOOT 3 VIEWS: Date: 06/13/18 HISTORY: Amputation. COMPARISON: Radiograph dated 11/20/15. FINDINGS: Prior amputation of the great toe metatarsal diaphysis and second toe metatarsal neck. There is sublu xation of the third toe metatarsophalangeal joint. There is a radiopaque foreign object at the planta r soft tissues of the fourth toe. The soft tissues around the fourth toe are very edematous. There is height loss of the fourth toe mid dle phalanx. IMPRESSION: 1. Chronic radiopaque foreign object at the plantar soft tissues of the distal phalanx of the fourth toe. 2. Height loss of the fourth toe middle phalanx without lucency along the medial margin of the proxi mal phalanx head, may be sequelae of chronic osteomyelitis or septic arthritis. MRI recommended if cl inically warranted. POS: KORI
--- NOTE | 2018-06-13 16:53 | RAD ---
LEFT FOOT 3 VIEWS: Date: 06/13/18 HISTORY: Pain. COMPARISON: Radiograph dated 05/23/17. FINDINGS: Prior amputation of the great toe diaphysis and second toe metatarsal head. There is flattening of th e third toe metatarsal head and proximal phalanx base with chronic fracture. Extensive plantar soft t issue swelling and concern for possible gas. There appears to be gas along the medial margin of the s oft tissue flap. IMPRESSION: Findings concerning for gangrene and chronic osteomyelitis of the third toe metatarsophalangeal joint . MRI recommended if clinically warranted. POS: KORI
[2018-06-13] MEDS ORDERED: Ondansetron ODT 4 MG TAB PO PRN (17:17)
[2018-06-13] MEDS ORDERED: Guaifenesin DM 100-10/5 ML UDCUP PO PRN (17:17)
[2018-06-13] MEDS ORDERED: Acetaminophen 650 MG Suppository PR PRN (17:17)
[2018-06-13] MEDS ORDERED: Senokot S 8.6-50 MG TAB PO PRN (17:17)
[2018-06-13] MEDS ORDERED: Ondansetron PF 4 MG/2 ML Vial IVP PRN (17:17)
[2018-06-13] MEDS ORDERED: HumaLOG 300 UNITS/3 ML VIAL SC PRN (17:17)
[2018-06-13] MEDS ORDERED: Dextrose 50% Abboject 50 ML SYRINGE SLOW IVP PRN (17:17)
[2018-06-13] MEDS ORDERED: Dextrose 5% in Water 1,000 ML IV PRN (17:17)
[2018-06-13] MEDS ORDERED: Acetaminophen 325 MG TAB PO PRN (17:17)
[2018-06-13 20:24] VITALS: BMI 30.6
[2018-06-13] MEDS ORDERED: Vancomycin HCl 1 GM in Premix Bag 1 BAG IVPB SCH (21:00)
[2018-06-13] MEDS: Metoprolol Tartrate 25 MG TAB PO SCH (21:05)
[2018-06-13] MEDS: Famotidine 20 MG TAB PO SCH (21:05)
[2018-06-13] MEDS: Atorvastatin Calcium 40 MG TAB PO SCH (21:05)
[2018-06-13] MEDS: Piperacillin/Tazobactam 3.375 GM in Sodium Chloride 0.9% 100 ML IVPB SCH (22:32)
[2018-06-14] MEDS: Piperacillin/Tazobactam 3.375 GM in Sodium Chloride 0.9% 100 ML IVPB SCH ×4 (04:00→21:48)
[2018-06-14] MEDS: Vancomycin HCl 1.75 GM in Sodium Chloride 0.9% 500 ML IVPB SCH ×2 (06:04→17:46)
[2018-06-14] MEDS: HumaLOG 300 UNITS/3 ML VIAL SC PRN ×3 (06:06→16:13)
--- NOTE | 2018-06-14 07:56 | HP ---
PRIMARY CARE PHYSICIAN: Nette Stewart at [facility]. CHIEF COMPLAINT: Sores on feet. HISTORY OF PRESENT ILLNESS: This is a 58-year-old obese white male with a history of diabetes mellitus type 2 with severe peripheral neuropathy and peripheral vascular disease. He has had multiple previous toe amputations on bilateral feet. He also had to have a left femoral-popliteal bypass with non-reversed saphenous vein surgery by Dr. Conti in 2017 to improve blood flow to his left foot. The patient most recently had amputation of his left second toe and part of the metatarsal by Dr. Gurrola one year ago. He has been doing well and then recently got some new shoes. Reports that two days ago, he noticed sores on bilateral feet at the old great toe amputation sites. There is a little black in the edges of the surgical scar on the left one and there is some bruising and possible pus collected under the right one. He has had no pain. He has had no systemic symptoms like fevers or nausea or vomiting. Just worsening of these sores on his feet, so he went to the emergency room. In the ER, he was found to have a minimally elevated white blood cell count. He is afebrile. Normal vital signs, but have bilateral infected sores on his feet. There is some mild erythema surrounding on the right, though no significant cellulitis. The one on the left actually looks kind of blackened around the edges with concern for poor blood flow. The patient does have dorsalis pedis pulse bilaterally. The patient was given clindamycin, Zosyn, and vancomycin in the emergency room. He is to be admitted for surgical consultation. PAST MEDICAL HISTORY: 1. Hypertension. 2. Hyperlipidemia. 3. Diabetes mellitus type 2, on metformin only. 4. Coronary artery disease, status post bypass grafting. 5. 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 6. Peripheral vascular disease. PAST SURGICAL HISTORY: 1. Three vessel CABG in 2010. 2. Back surgery. 3. Hernia repair. 4. Bilateral first and second toe amputations. 5. Left femoral-popliteal bypass surgery in [address] Conti. ALLERGIES: LISINOPRIL. MEDICATIONS: The patient does not have his current medication list with him. He does say he still takes metformin twice a day going by his most recent discharge summary, he is on; 1. Metformin 500 mg twice a day. 2. Metoprolol 25 mg twice a day. 3. Gemfibrozil 600 mg twice a day. 4. Aspirin 81 mg daily. 5. Clopidogrel 75 mg daily. 6. Atorvastatin 40 mg daily. 7. Nitroglycerin as needed for chest pain. FAMILY HISTORY: Mother and father had hypertension. SOCIAL HISTORY: The patient has history of smoking 2 to 3 cigarettes daily for 30 years. No alcohol or illicit drug use. He lives alone. He is . However, he states that should he be incapacitated, his ex- would be his medical decision maker, her name is Alana Black. REVIEW OF SYSTEMS: CONSTITUTIONAL: No fevers. No chills. EYES: No double vision or blurred vision. ENT: No congestion, drainage, or sore throat. CARDIOVASCULAR: No chest pain. No palpitations or racing heart. PULMONARY: No coughing, wheezing, or shortness of breath. GASTROINTESTINAL: No abdominal pain. No nausea or vomiting. No diarrhea or constipation. GENITOURINARY: No dysuria or hematuria. MUSCULOSKELETAL: No muscle aches or joint pains. SKIN: See HPI. NEUROLOGIC: The patient has severe loss of sensation from diabetic neuropathy in bilateral feet and legs. No new neurologic symptoms. PHYSICAL EXAMINATION: VITAL SIGNS: Blood pressure 157/76, pulse 89, respirations 16, temperature 98.5, O2 saturation 97% on room air. GENERAL: This is a well-developed, obese white male, in no acute distress. HEENT: Pupils are equal, round, and reactive to light. Oropharynx clear without lesions, erythema, or exudate. NECK: Supple. No lymphadenopathy. No thyroid nodules or enlargement. No JVD. HEART: Regular rate and rhythm. No murmurs, rubs, or gallops. LUNGS: Clear to auscultation bilaterally. No wheezes, crackles, or rhonchi. ABDOMEN: Soft, nontender to palpation. Normoactive bowel sounds. No hepatosplenomegaly or other masses. EXTREMITIES: The patient has bilateral first and second toe amputations also with new bruised areas over the great toe amputation sites possibly from rubbing on his new shoes. There is more bruising on the right one and surrounding that bruise has some whitish appearance that might be some collected pus underneath. There is also some minimal reddening of the right foot compared to the left. Uncertain whether this is just improved blood flow compared to the left versus some spreading infection. There is no obvious severe cellulitis moving up the foot or into the leg. The left one has some bruising as well, but also has some duskiness and darkening of the edges of the old surgical resection site. The patient does have palpable dorsalis pedis pulses bilaterally, little bit weaker on the left than the right, but present bilaterally. SKIN: See extremity exam above. No other lesions. NEUROLOGIC: Decreased sensation in bilateral feet and legs. Otherwise intact strength and sensation elsewhere and no facial droop. LABORATORY DATA: White blood cell count of 11.1 with normal differential, remainder is normal. Complete metabolic panel is notable for glucose of 269, the rest is normal. X-rays; I did review the x-rays of bilateral feet that show the amputation sites. There was extensive plantar soft tissue swelling and concern for possible gas along with some chronic changes to the bones that are concerning for possible osteo, especially on the left one. The right one does not have as much soft tissue changes, but there are some bone changes that are concerning for chronic sequela of osteomyelitis or septic arthritis. ASSESSMENT: 1. Bilateral diabetic foot infections with concern for possible spread into the bones. We will continue the patient's Zosyn and vancomycin, and we will consult Dr. Gurrola to see if the patient needs I and D's of these areas or if he needs an MRI to further elucidate any bony involvement. For now, the patient does not appear septic and seems to be tolerating this decently well. We will consult Wound care to assist with caring for these bilateral sores. 2. Diabetes mellitus type 2. We will resume the patient's metformin and we will do fingerstick blood sugars q.a.c. and h.s. with a wide insulin sliding scale. 3. Hypertension. Resume the patient's home antihypertensives and monitor closely. 4. Hyperlipidemia. We will resume patient's atorvastatin and gemfibrozil. 5. Gastrointestinal prophylaxis, put the patient on Pepcid twice a day. 6. History of coronary artery disease. Resume the patient's aspirin and Plavix. 7. Deep venous thrombosis prophylaxis. We will start the patient on subcu Lovenox. CODE STATUS: I did discuss with the patient. He is a full code. Should he be incapacitated, his ex , Alana Black would be his medical decision maker. Job ID: [id number]
[2018-06-14 08:23] LABS: #Eosinphils 0.2 thou/uL (0.0-0.7); #Lymphocytes 1.3 thou/uL (1.20-3.40); #Monocytes 0.5 thou/uL (0.11-0.59); #Neutrophils 5.7 thou/uL (1.40-6.50); %Basophils 0.4 % (0.0-1.0); %Eosinophils 2.9 % (0.0-10.0); %Lymphocytes 16.8 % (21.0-51.0); %Monocytes 6.1 % (0.0-10.0); %Neutrophils 73.8 % (42.0-75.0); Mean Corpuscular HGB CONC 33.2 g/dL (32.0-36.0); Mean Corpuscular Hemoglobin 30.3 pg (27.0-31.0); Mean Corpuscular Volume 91.1 fL (78.0-98.0); Mean Platelet Volume 8.5 fL (7.4-10.4); Platelet Count 260 thou/uL (130-400); RBC Distribution Width 12.3 % (11.5-14.5); Red Blood Cell (RBC) Count 5.28 mill/uL (4.70-6.10); White Blood Cell (WBC) Count 7.8 thou/uL (4.8-10.8)
[2018-06-14] MEDS: Enoxaparin Sodium 40 MG/0.4 ML SYRINGE SC SCH (08:28)
[2018-06-14] MEDS: Gemfibrozil 600 MG TAB PO SCH ×2 (08:29→16:20)
[2018-06-14] MEDS: metFORMIN 500 MG TAB PO SCH ×2 (08:29→16:20)
[2018-06-14] MEDS: Metoprolol Tartrate 25 MG TAB PO SCH ×2 (08:29→20:11)
[2018-06-14] MEDS: Aspirin 81 mg Enteric Coated Tablet PO SCH (08:29)
[2018-06-14] MEDS: Famotidine 20 MG TAB PO SCH ×2 (08:29→20:11)
[2018-06-14] MEDS: Clopidogrel Bisulfate 75 MG TAB PO SCH (08:29)
[2018-06-14 08:43] LABS: Anion Gap 12 mmol/L (10-20); BUN (Urea Nitrogen) 14 mg/dL (8.4-25.7); Calc. Creatinine Clearance 139 mL/min (70-130); Calcium 8.8 mg/dL (7.8-10.44); Carbon Dioxide 21 mmol/L (22-29); Chloride 106 mmol/L (98-107); Estimated GFR-MDRD 87; Glucose 192 mg/dL (70-105); Sodium 135 mmol/L (136-145)
--- NOTE | 2018-06-14 13:32 | CON ---
DATE OF CONSULTATION: REASON FOR CONSULTATION: Diabetic foot infection. HISTORY OF PRESENT ILLNESS: Mr. Black is a 58-year-old diabetic male, who reports problems with his feet for the past few days. He states that the little toe on the right turned in and were sore on the fourth toe that he has had drainage from that site, which was getting worse so he came into the emergency room. He denies any fevers or chills. He states that the left foot is trying to do the same thing. He has a callus with a little bit of drainage from the toe amputation site on the left and some bruising had a toe amputation site on the right. He was admitted to the Medicine Service and started on antibiotics. PAST MEDICAL HISTORY: Hypertension; hyperlipidemia; diabetes; coronary artery disease, status post grafting; peripheral vascular disease, status post bypass on the left; and congestive heart failure. PAST SURGICAL HISTORY: Three-vessel CABG in 2010, back surgery, hernia repair, bilateral first and second toe amputations by Dr. Gurrola, and left femoral-popliteal bypass by Dr. Conti in 2017. ALLERGIES: HE DOES REPORT AN ALLERGY TO LISINOPRIL. OUTPATIENT MEDICATIONS: Include: 1. Metformin. 2. Metoprolol. 3. Gemfibrozil. 4. Aspirin. 5. Plavix. 6. Atorvastatin. 7. P.r.n. nitroglycerin. FAMILY HISTORY: High blood pressure. SOCIAL HISTORY: Positive for tobacco abuse, but no drug or alcohol use. REVIEW OF SYSTEMS: Ten-system review of systems is negative except per HPI. Right ankle pain for the past few days, limiting his ambulation. PHYSICAL EXAMINATION: VITAL SIGNS: The patient has been afebrile since admission, heart rate 79, respirations 16, 93% saturated on room air, and blood pressure 126/68. GENERAL: Reveals a pleasant older man, in no acute distress. He is not flushed or toxic in appearance. He is not jaundiced or icteric. HEENT: Unremarkable. NECK: Supple without lymphadenopathy or thyroid nodules. HEART: Regular in its rate and rhythm without murmurs, rubs, or gallops. LUNGS: Clear to auscultation bilaterally. ABDOMEN: Soft, nontender, and nondistended. EXTREMITIES: Warm and well perfused, although, I cannot appreciate any pedal pulses. His toes are warm and pink and have normal capillary refill. His lateral fourth toe has an ulceration down to the bone without expressible purulence without significant erythema or lymphangitis. There are two areas near the tip of his fifth toe that also have some expressible purulence, but this appears to be more superficial. He has some callus on the left first metatarsal amputation site with some discoloration, but no expressible drainage. No significant ulceration on the left foot, although, there is some irritation of the skin over the lateral fourth toe from interning fifth toe. NEUROLOGIC: Distal neuropathy. Otherwise, no focal findings. PSYCHIATRIC: Alert, oriented, and appropriate. IMAGING: It did show some lucency of the right fourth phalanx. He was noted to have plantar soft tissue swelling and concern for possible gas. LABORATORY DATA: White count was initially elevated at 11, but has come down to 7.8, hemoglobin is 16, platelets are 260. Electrolytes are unremarkable. Glucose is elevated at 192 to 269. LFTs are normal. ASSESSMENT: Right fourth toe osteomyelitis with exposed bone from neurotrophic ulceration. He also has some past expressible from the right fifth toe, but this appears to be more superficial. I have recommended amputation of the fourth toe and debridement of the fifth toe. If there is infection into the deep tissues of the fifth toe, then amputation of the fifth and third toe would be recommended. I am not sure what is going on in the left foot in terms of his x-ray. There was concern for possible gas in the soft tissues, but clinically he does not have an abscess or infection on this side. He does have some discoloration of the callus and may have had some drainage from that site, but I cannot express any today. Further imaging would be reasonable to evaluate this area. The patient does not appear to be toxic or septic and there what is available until quite late today, so I am going to try to get him on the schedule for tomorrow at a more reasonable time. I think it should be able to heal these wounds. Given his clinical exam and ability to heal his previous amputations, but if he has wound healing problems, then Vascular Surgery involvement will be recommended as well. Job ID: [id number]
--- NOTE | 2018-06-14 14:53 | PDOC.PN ---
- Subjective Encounter Start Date: 06/14/18 Encounter Start Time: 14:51 Patient lying in bed, he denies any complaints. He denies pain in feet. Denies chest pain, shortness of breath or abdominal pain. Surgery planning for OR tomorrow. - Objective Resuscitation Status - Order Detail: 06/13/18 17:09 Resuscitation Status Routine Resuscitation Status: FULL: Full Resuscitation Discussed with: Patient MAR Reviewed: Yes Vital Signs & Weight: Vital Signs (12 hours) Temp Pulse Resp BP Pulse Ox 06/14/18 11:50 98.3 F 79 20 139/71 06/14/18 08:00 98.4 F 79 16 126/68 93 L 06/14/18 04:00 99.1 F 82 16 116/80 98 Weight Admit Weight 244 lb 11.41 oz Weight 244 lb 11.41 oz I&O: 06/13/18 06/14/18 06/15/18 06:59 06:59 06:59 Intake Total 0 Output Total 700 Balance -700 Result Diagrams: 06/14/18 08:15 06/14/18 08:15 Additional Labs: Accuchecks 06/14/18 06/14/18 06/13/18 11:36 06:06 21:03 POC Glucose 268 H 196 H 192 H Radiology Reviewed by me: Yes Phys Exam - Physical Examination Constitutional: NAD HEENT: PERRLA, moist MMs, oral pharynx no lesions Neck: no nodes, no JVD Respiratory: no wheezing, clear to auscultation bilateral Cardiovascular: RRR, no significant murmur Gastrointestinal: soft, non-tender Musculoskeletal: no edema Amputations of 1st and 2nd toes bilateral feet noted with ulceration Neurological: non-focal, moves all 4 limbs Lymphatic: no nodes Psychiatric: normal affect, A&O x 3 Skin: normal turgor Dx/Plan (1) Acute osteomyelitis of metatarsal bone of left foot Code(s): M86.172 - OTHER ACUTE OSTEOMYELITIS, LEFT ANKLE AND FOOT Status: Acute (2) CAD (coronary artery disease) Code(s): I25.10 - ATHSCL HEART DISEASE OF [place] CORONARY ARTERY W/O ANG PCTRS Status: Chronic Qualifiers: (3) DM type 2 (diabetes mellitus, type 2) Status: Chronic Qualifiers: (4) Dyslipidemia Code(s): E78.5 - HYPERLIPIDEMIA, UNSPECIFIED Status: Chronic (5) HTN (hypertension) Code(s): I10 - ESSENTIAL (PRIMARY) HYPERTENSION Status: Chronic Qualifiers: (6) Obesity (BMI 30.0-34.9) Code(s): E66.9 - OBESITY, UNSPECIFIED Status: Chronic (7) PVD (peripheral vascular disease) Code(s): I73.9 - PERIPHERAL VASCULAR DISEASE, UNSPECIFIED Status: Chronic Comment: s/p revascularization - left femoral popliteal bypass - Plan cont current plan of care, continue antibiotics, DVT proph w/lovenox * Surgery following and plan for OR tomorrow * Continue abx * Wound care * Monitor labs and sugars * Continue home medications * Further management pending outcomes of surgery
[2018-06-14] MEDS: Atorvastatin Calcium 40 MG TAB PO SCH (20:11)
[2018-06-15] MEDS: Piperacillin/Tazobactam 3.375 GM in Sodium Chloride 0.9% 100 ML IVPB SCH ×4 (03:52→21:13)
[2018-06-15 05:50] LABS: Vancomycin, Trough 14.9 ug/mL
[2018-06-15] MEDS: Vancomycin HCl 1.75 GM in Sodium Chloride 0.9% 500 ML IVPB SCH ×2 (06:04→17:45)
[2018-06-15] MEDS ORDERED: Sodium Chloride 0.45% 1,000 ML IV SCH (07:30)
[2018-06-15] MEDS: Metoprolol Tartrate 25 MG TAB PO SCH ×2 (07:59→20:28)
[2018-06-15] MEDS: Clopidogrel Bisulfate 75 MG TAB PO SCH (08:03)
[2018-06-15] MEDS: metFORMIN 500 MG TAB PO SCH ×2 (08:03→17:23)
[2018-06-15] MEDS: Gemfibrozil 600 MG TAB PO SCH ×2 (08:03→17:23)
[2018-06-15] MEDS: Aspirin 81 mg Enteric Coated Tablet PO SCH (08:03)
[2018-06-15] MEDS: Enoxaparin Sodium 40 MG/0.4 ML SYRINGE SC SCH (08:04)
[2018-06-15] MEDS: Famotidine 20 MG TAB PO SCH ×2 (08:04→20:28)
--- NOTE | 2018-06-15 08:14 | HP ---
HISTORY OF PRESENT ILLNESS: Robel Black is a 58-year-old male patient, well known to me. The patient is disabled due to right ankle problems and prior amputations of toes and metatarsals and his diabetes. He is admitted to the hospitalist service on vancomycin and Zosyn. He has had prior amputations of his right first and second toes and metatarsals and left first and second toes and metatarsals. He now has a diabetic callus left medial foot over the amputation site of his fourth and fifth toes and metatarsals. He has an erosion of his fourth toe with exposed joint, inter-phalanx as well as fifth toe and plan is to amputate his right third, fourth, and fifth toes and debride his diabetic callus of left foot. He had bilateral foot x-rays on admission on 06/13/2018 of left foot revealing problems with the third toe metatarsophalangeal joint. MRI was recommended. Did not show anything wrong with his first and second metatarsals over which the callus lies. Right foot reveals prior amputation of the great and second toe metatarsal. Fourth toe demonstrates edema and changes, probably consistent with middle phalanx osteomyelitis. ALLERGIES: LISINOPRIL. SOCIAL HISTORY: Tobacco cessation 5 years ago. Alcohol, none. MEDICATIONS: Currently on vancomycin and Zosyn. At home, he takes: 1. Metformin 500 b.i.d. 2. Metoprolol 25 b.i.d. 3. Lopid 600 b.i.d. 4. Plavix 75 a.m. 5. Atorvastatin 40 mg at bedtime. 6. Aspirin 81 mg a day. 7. Tramadol p.r.n. pain. 8. Bactrim DS. 9. MiraLAX daily. 10. Nitroglycerin p.r.n. 11. Cipro b.i.d. PAST SURGICAL HISTORY: Three vessel CABG in 2011, back surgery, hernia repair, bilateral foot surgery described above, left fem pop bypass by Dr. Conti in 2017. PHYSICAL EXAMINATION: HEENT: Head, ears, eyes, nose and throat unremarkable. LUNGS: Clear to auscultation. CARDIAC: Regular rate and rhythm without murmur or gallop. ABDOMEN: Soft and nontender. EXTREMITIES: Palpable femoral pulses bilaterally. Palpable popliteal pulses bilaterally on the left. Foot changes as noted above. ASSESSMENT AND PLAN: 1. Amputation of right fourth toe, fifth toe and third toe, possible primary closure of the third and fifth toes. Debridement of the callus, left foot. Diabetic evaluation of left third toe intraoperatively, possible amputation and debridement if indicated. 2. Peripheral arterial disease. 3. Coronary artery disease. 4. Diabetes mellitus. 5. History of tobacco abuse, cessation 4-5 years ago. Job ID: [id number]
[2018-06-15] MEDS ORDERED: Fentanyl 100 MCG/2 ML VIAL ONE (09:18)
[2018-06-15] MEDS ORDERED: Bacitracin Zinc Ointment 30 gm TUBE ONE (10:53)
[2018-06-15] MEDS ORDERED: PHENYLEPHRINE-NS 100 MCG/ML 10 ML SYRINGE ONE ×2 (10:58→14:53)
[2018-06-15] MEDS ORDERED: Ibuprofen 600 MG TAB PO PRN (11:11)
[2018-06-15] MEDS ORDERED: traMADol HCl 50 MG TAB PO PRN ×2 (11:11)
[2018-06-15] MEDS ORDERED: Acetaminophen 500 MG TAB PO PRN (11:11)
--- NOTE | 2018-06-15 12:00 | OP ---
DATE OF PROCEDURE: 06/15/2018 PREOPERATIVE DIAGNOSES: Diabetic neuropathy both feet, osteomyelitis right fourth toe with ulceration fifth toe, diabetic callus left foot over area of prior amputation first and second toes and metatarsals superficial. Note x-ray suggested deformity of the left third toe, but clinically, there is no evidence of infection. No wounds and no procedures indicated. PROCEDURES PERFORMED: Amputation of right third, fourth, and fifth toes through the proximal phalanx with irrigation and primary closure. Debridement of diabetic callus left foot overlying the previous amputation site, first and second toes and metatarsals. ANESTHESIA: General. Note, good bleeding. No evidence of poor circulation and prior history of left femoral popliteal artery bypass by Dr. Conti, years ago. DESCRIPTION OF PROCEDURE: The patient was taken to the operating room under general anesthesia. Both lower extremities were prepared with Betadine and draped in routine fashion. Amputation of right foot third, fourth, and fifth toes performed leaving skin flaps for closure, amputating proximal phalanx with a bone cutter, resecting approximately with Rongeurs, dissecting connective tissue sharply, irrigating the wounds, noting good blood supply, good bleeding. Connective tissue debrided sharply. Subcutaneous tissue was approximated with 4-0 Monocryl, skin with 4-0 Prolene. Antibiotic ointment and sterile dressing applied. Diabetic callus, left foot, debrided from overlying the prior amputation site of the first and second toes and metatarsals. This was superficial and there was good bleeding. No evidence of deep sinus tracts. Antibiotic ointment and sterile dressing applied. Job ID: [id number]
[2018-06-15] MEDS ORDERED: Lidocaine 1% PF 5 ML VIAL ONE (14:53)
[2018-06-15] MEDS ORDERED: PROPOFOL 200 MG/20 ML VIAL ONE (14:53)
--- NOTE | 2018-06-15 16:06 | PDOC.PN ---
- Subjective Encounter Start Date: 06/15/18 Encounter Start Time: 16:06 Patient lying in bed, he is s/p amputation with Dr Gurrola today. He denies chest pain, shortness of breath, abdominal pain. No pain in foot. - Objective Resuscitation Status - Order Detail: 06/13/18 17:09 Resuscitation Status Routine Resuscitation Status: FULL: Full Resuscitation Discussed with: Patient MAR Reviewed: Yes Vital Signs & Weight: Vital Signs (12 hours) Temp Pulse Resp BP Pulse Ox 06/15/18 11:59 97.4 F L 72 16 133/83 95 06/15/18 07:59 98.0 F 75 18 114/73 97 Weight Admit Weight 244 lb 11.41 oz Weight 244 lb 11.41 oz I&O: 06/14/18 06/15/18 06/16/18 06:59 06:59 06:59 Intake Total 0 1682 Output Total 700 1860 Balance -700 -178 Result Diagrams: 06/14/18 08:15 06/14/18 08:15 Additional Labs: Accuchecks 06/15/18 06/15/18 06/14/18 12:04 05:05 20:08 POC Glucose 143 H 166 H 193 H Radiology Reviewed by me: Yes Phys Exam - Physical Examination Constitutional: NAD HEENT: PERRLA, moist MMs, oral pharynx no lesions Neck: no nodes, supple Respiratory: no wheezing, clear to auscultation bilateral Cardiovascular: RRR, no significant murmur Gastrointestinal: soft, positive bowel sounds Musculoskeletal: no edema, pulses present Neurological: non-focal, moves all 4 limbs Lymphatic: no nodes Psychiatric: normal affect, A&O x 3 Skin: cap refill <2 seconds Deviation from normal: Dressings applied to bilateraly feet, clean and dry Dx/Plan (1) Acute osteomyelitis of metatarsal bone of left foot Code(s): M86.172 - OTHER ACUTE OSTEOMYELITIS, LEFT ANKLE AND FOOT Status: Acute (2) CAD (coronary artery disease) Code(s): I25.10 - ATHSCL HEART DISEASE OF [place] CORONARY ARTERY W/O ANG PCTRS Status: Chronic Qualifiers: (3) DM type 2 (diabetes mellitus, type 2) Status: Chronic Qualifiers: (4) Dyslipidemia Code(s): E78.5 - HYPERLIPIDEMIA, UNSPECIFIED Status: Chronic (5) HTN (hypertension) Code(s): I10 - ESSENTIAL (PRIMARY) HYPERTENSION Status: Chronic Qualifiers: (6) Obesity (BMI 30.0-34.9) Code(s): E66.9 - OBESITY, UNSPECIFIED Status: Chronic (7) PVD (peripheral vascular disease) Code(s): I73.9 - PERIPHERAL VASCULAR DISEASE, UNSPECIFIED Status: Chronic Comment: s/p revascularization - left femoral popliteal bypass - Plan cont current plan of care, PT/OT, DVT proph w/lovenox * Patient is s/p amputation * Surgery following * Await for pathology * Continue pain control * Home medications * Currently stable and asymptomatic * Wound care and PT/OT
[2018-06-15] MEDS: Atorvastatin Calcium 40 MG TAB PO SCH (20:28)
[2018-06-16] MEDS: Piperacillin/Tazobactam 3.375 GM in Sodium Chloride 0.9% 100 ML IVPB SCH ×2 (04:21→08:42)
[2018-06-16] MEDS: Vancomycin HCl 1.75 GM in Sodium Chloride 0.9% 500 ML IVPB SCH (05:33)
[2018-06-16] MEDS: HumaLOG 300 UNITS/3 ML VIAL SC PRN (05:34)
[2018-06-16 08:00] LABS: #Eosinphils 0.2 thou/uL (0.0-0.7); #Lymphocytes 1.5 thou/uL (1.20-3.40); #Monocytes 0.6 thou/uL (0.11-0.59); #Neutrophils 4.8 thou/uL (1.40-6.50); %Basophils 0.7 % (0.0-1.0); %Eosinophils 3.1 % (0.0-10.0); %Monocytes 7.7 % (0.0-10.0); %Neutrophils 67.5 % (42.0-75.0); Mean Corpuscular HGB CONC 33.1 g/dL (32.0-36.0); Mean Corpuscular Volume 93.6 fL (78.0-98.0); Platelet Count 214 thou/uL (130-400); RBC Distribution Width 12.1 % (11.5-14.5); Red Blood Cell (RBC) Count 5.17 mill/uL (4.70-6.10); White Blood Cell (WBC) Count 7.2 thou/uL (4.8-10.8)
[2018-06-16 08:15] LABS: Anion Gap 14 mmol/L (10-20); BUN (Urea Nitrogen) 10 mg/dL (8.4-25.7); Calc. Creatinine Clearance 137 mL/min (70-130); Calcium 8.7 mg/dL (7.8-10.44); Carbon Dioxide 18 mmol/L (22-29); Chloride 108 mmol/L (98-107); Estimated GFR-MDRD 86; Glucose 154 mg/dL (70-105); Potassium 4.5 mmol/L (3.5-5.1); Sodium 135 mmol/L (136-145)
[2018-06-16] MEDS: Metoprolol Tartrate 25 MG TAB PO SCH (08:36)
[2018-06-16] MEDS: Gemfibrozil 600 MG TAB PO SCH (08:36)
[2018-06-16] MEDS: Clopidogrel Bisulfate 75 MG TAB PO SCH (08:36)
[2018-06-16] MEDS: Famotidine 20 MG TAB PO SCH (08:36)
[2018-06-16] MEDS: metFORMIN 500 MG TAB PO SCH (08:36)
[2018-06-16] MEDS: Aspirin 81 mg Enteric Coated Tablet PO SCH (08:37)
[2018-06-16] MEDS: Enoxaparin Sodium 40 MG/0.4 ML SYRINGE SC SCH (08:37)
[2018-06-16 11:15] VITALS: BP 128/82; TEMP 98.3
--- NOTE | 2018-06-16 14:17 | PRG ---
DATE OF SERVICE: 06/16/2018 Robel Black is doing well today. His dressings are dry. From a surgical standpoint, the patient's IV antibiotics could be discontinued. He can be discharged home on oral antibiotics for 10 days. He can follow up in my office in about 2 weeks to have his sutures removed. He does not need to have home health. There are no open wounds except for the left heel area, where we could wash this with soap and water daily and place antibiotic ointment. He can weightbear as tolerated on his right foot using a postoperative shoe when out of bed. He should minimize his activity to around the house. He can be on oral antibiotics for 2 weeks only for 10 days. I will see him as needed this hospitalization. He is ready for discharge from a surgical standpoint. Job ID: [id number]
[2018-06-16] MEDS ORDERED: Ciprofloxacin 500 MG TAB PO SCH (20:00)
[2018-06-16] MEDS ORDERED: Sulfameth/Trimethoprim DS 800-160mg TAB PO SCH (21:00)
== END 2018-06-16 15:00 | disposition home or self-care (01) | DRG 617 ==
LOC: ERS 12:01 → ERHOLD 16:38 → 3SE 19:44 → T4-A 06-14 18:44 → OBSVTOIN 06-15 15:05
PROVIDERS: ADMIT Emergency Medicine; ATTEND Emergency Medicine
PROC: 0Y6T0Z1 Detachment at Right 3rd Toe, High, Open Approach (ICD-10-PCS; principal; 2018-06-15)
PROC: 0Y6X0Z1 Detachment at Right 5th Toe, High, Open Approach (ICD-10-PCS; 2018-06-15)
PROC: 0Y6V0Z1 Detachment at Right 4th Toe, High, Open Approach (ICD-10-PCS; 2018-06-15)
PROC: 0JDR0ZZ Extraction of Left Foot Subcutaneous Tissue and Fascia, Open Approach (ICD-10-PCS; 2018-06-15)
DX: E11.69 Type 2 diabetes mellitus with other specified complication (principal); M86.172 Other acute osteomyelitis, left ankle and foot; E11.52 Type 2 diabetes mellitus with diabetic peripheral angiopathy with gangrene; I96 Gangrene, not elsewhere classified; I50.42 Chronic combined systolic (congestive) and diastolic (congestive) heart failure; Z79.4 Long term (current) use of insulin; I25.10 Atherosclerotic heart disease of native coronary artery without angina pectoris; E78.5 Hyperlipidemia, unspecified; E66.9 Obesity, unspecified; E11.51 Type 2 diabetes mellitus with diabetic peripheral angiopathy without gangrene; I25.2 Old myocardial infarction; Z95.1 Presence of aortocoronary bypass graft; F17.210 Nicotine dependence, cigarettes, uncomplicated; I99.8 Other disorder of circulatory system; L84 Corns and callosities; E11.42 Type 2 diabetes mellitus with diabetic polyneuropathy; I11.0 Hypertensive heart disease with heart failure; E11.621 Type 2 diabetes mellitus with foot ulcer; M21.961 Unspecified acquired deformity of right lower leg; Z68.30 Body mass index [BMI] 30.0-30.9, adult
CPT/HCPCS: 36415; 36416; 80048; 80053; 80202; 85025; 87040; 88305; 88311; J1650; J2001; J2543; J2704; J3010; J3370; J3490; J7050

== ENCOUNTER 2018-07-15 10:05 | Day surgery (SDC) | payer SELFPAY ==
--- NOTE | 2018-07-15 07:45 | HP ---
HISTORY OF PRESENT ILLNESS: The patient presents to the office today in followup after undergoing on 06/15/2018, amputations of right toes 3, 4 and 5. Since that time, the wound on toe 3 has dehisced and there is exposed phalanx. Plan is to resect this phalanx and possibly the metatarsal, hopefully wash this out and plan primary closure. We will plan this tomorrow. He understands risks and benefits. I have prescribed Augmentin and Bactrim for 10 days. We will give him vancomycin and Zosyn preoperatively. He understands risks and benefits and consents. In addition, while under anesthesia, which could be general or ankle block, TIVA, we will plan debridement of the left foot callus. He has an amputation of his left great and fourth toes and has a diabetic callus over this healed wound. MEDICATIONS: Aspirin, atenolol, Crestor, metformin. PAST MEDICAL HISTORY: Hypertension, hyperlipidemia, diabetes. PAST SURGICAL HISTORY: Coronary artery bypass grafting in 2008, umbilical hernia repair in 2009, right great toe amputation in February 2015, amputation of 3 toes, 3, 4, and 5 on 06/15/2018, right foot, and diabetic callus, left foot. SOCIAL HISTORY: Tobacco: None. Alcohol: None. PHYSICAL EXAMINATION: VITAL SIGNS: Weight 250 pounds, 6 feet 3 inches, 31 BMI, blood pressure 139/73, pulse 94, temperature 98.6 degrees. HEAD, EYES, EARS, NOSE, AND THROAT: Unremarkable. LUNGS: Clear to auscultation. CARDIAC: Regular rate and rhythm without murmur or gallop. ABDOMEN: Soft and nontender. No masses. EXTREMITIES: Palpable femoral, popliteal, pedal pulses. No ankle edema. ASSESSMENT AND PLAN: 1. History of amputation of left 1st and 4th toes. Well-healed wounds, left foot. Diabetic callus, left foot over the great toe, metatarsal amputation site. We will plan debridement in the operating room of this diabetic callus. 2. The patient has exposed 3rd toe phalanx from recent amputation. We will plan debridement and closure or healing by secondary intention pending the operative findings. He understands risks, benefits, and consents. Job ID: [id number]
[2018-07-15] MEDS ORDERED: PROPOFOL 0 ML ONE (11:19)
[2018-07-15] MEDS ORDERED: Lidocaine 1% PF 5 ML VIAL ONE (11:26)
[2018-07-15] MEDS ORDERED: Piperacillin/Tazobactam 3.375 GM VIAL ONE (11:26)
[2018-07-15] MEDS ORDERED: PROPOFOL 200 MG/20 ML VIAL ONE (11:26)
[2018-07-15] MEDS ORDERED: Sodium Chloride 0.9% 100 ML ONE (11:28)
[2018-07-15] MEDS ORDERED: Vancomycin HCl 1 GM in Premix Bag 1 BAG IVPB SCH (11:30)
[2018-07-15] MEDS ORDERED: Piperacillin/Tazobactam 3.375 GM in Sodium Chloride 0.9% 100 ML IVPB SCH (11:30)
[2018-07-15] MEDS ORDERED: Bacitracin Zinc Ointment 30 gm TUBE ONE (12:13)
--- NOTE | 2018-07-15 18:20 | OP ---
DATE OF PROCEDURE: 07/15/2018 PREOPERATIVE DIAGNOSES: Diabetic open wound, right foot with exposed phalanx, right third toe; diabetic callus, left foot, overlying previously resected great toe and metatarsal. POSTOPERATIVE DIAGNOSES: Diabetic open wound, right foot with exposed phalanx, right third toe; diabetic callus, left foot, overlying previously resected great toe and metatarsal. PROCEDURES PERFORMED: Resection of right third toe and metatarsal with irrigation of wound and primary closure. The debridement of skin and diabetic callus, left foot. ANESTHESIA: TIVA. DESCRIPTION OF PROCEDURE: The patient was taken to the operating room, where under intravenous sedation, right foot and left foot were prepared with ChloraPrep and draped in routine fashion. Exposed phalanx out of the mid TMA stump from third toe. This phalanx was resected proximally sharply and resected proximally with a rongeur back to the metatarsal. Connective tissue debrided. Wound was irrigated. Subcutaneous tissue was approximated with 3-0 Monocryl, skin with 4-0 Prolene. Antibiotic ointment and sterile dressing applied. Diabetic callus, left foot overlying previously resected great toe and metatarsal. Diabetic callus was debrided sharply back to healthy tissue. Diabetic callus skin removed. Antibiotic ointment and Band-Aid applied. The patient tolerated the procedure well. Job ID: [id number]
--- NOTE | 2018-07-20 05:40 | PQF ---
[facility] POST DISCHARGE CLINICAL DOCUMENTATION IMPROVEMENT CLARIFICATION FORM l Todays Date: 07/20/18 l Patients Name NAYELI COVINGTON l l Admit Date 07/15/18 l Disch Date 07/15/18 Airset Molder Name Flaco Lomax Email: [email or web address] Cell: [phone] To be completed by Airset Molder: Present Clinical Indicators - Signs / Symptoms Results and Location in Medical Record [ ] Documentation of: [ ] [ ] Documentation of: [ ] [ ] Documentation of: [ ] [ ] Documentation of: [ ] [ ] Risks [ ] [ ] [ ] Treatment [ ] DIABETIC CALLUS LEFT FOOT Query for DEPTH and AREA (sq cm) of debridement on Left foot [ ] [ ] To be completed by Physician: KAIDEN OLEARY The documentation in this patients record requires clarification to ensure coding compliance and accuracy. Check the appropriate box and include in your discharge summary. [ ] [ ] [ ] [ ] Please check this box if this does not apply to this patient [ ] Unable to determine [ ] Other diagnosis: Review the following information and exercise your independent professional judgment in responding to the clarification. Based upon the clinical findings, risk factors, and treatment, please clarify if you are treating one of the above probable or suspected diagnoses. Physician Signature: Date Time MTDD
== END 2018-07-15 14:25 | disposition home or self-care (01) ==
LOC: SDC 10:05
PROVIDERS: ATTEND Specialist
PROC: 0QTQ0ZZ Resection of Right Toe Phalanx, Open Approach (ICD-10-PCS; principal; 2018-07-15)
PROC: 0JBR0ZZ Excision of Left Foot Subcutaneous Tissue and Fascia, Open Approach (ICD-10-PCS; principal; 2018-07-15)
DX: E11.69 Type 2 diabetes mellitus with other specified complication (principal); S91.104A Unspecified open wound of right lesser toe(s) without damage to nail, initial encounter; L84 Corns and callosities; I10 Essential (primary) hypertension; E78.5 Hyperlipidemia, unspecified; Z79.82 Long term (current) use of aspirin; Z79.84 Long term (current) use of oral hypoglycemic drugs; Z79.899 Other long term (current) drug therapy; Z88.8 Allergy status to other drugs, medicaments and biological substances; Z89.421 Acquired absence of other right toe(s); Z95.1 Presence of aortocoronary bypass graft; Z89.411 Acquired absence of right great toe
CPT/HCPCS: J2001; J2543; J2704; J3370; J3490

== ENCOUNTER 2018-11-13 08:18 | Inpatient (IN) | payer SELFPAY ==
--- NOTE | 2018-11-13 09:02 | RAD ---
Exam:3 views left foot HISTORY: Left foot ulcer COMPARISON: 06/13/2018 FINDINGS: Chronic changes involving the third second and first digit. No evidence of new erosion or d estruction, since the previous examination. Lateral projection demonstrates an enlarging plantar soft tissues ulcer. IMPRESSION: Enlarging plantar soft tissue ulceration.
[2018-11-13 09:20] LABS: #Basophils 0.1 thou/uL (0.0-0.2); #Eosinphils 0.2 thou/uL (0.0-0.7); #Lymphocytes 2.1 thou/uL (1.20-3.40); #Monocytes 0.7 thou/uL (0.11-0.59); #Neutrophils 7.3 thou/uL (1.40-6.50); %Basophils 0.5 % (0.0-1.0); %Eosinophils 2.1 % (0.0-10.0); %Lymphocytes 20.7 % (21.0-51.0); %Monocytes 6.3 % (0.0-10.0); %Neutrophils 70.3 % (42.0-75.0); Hemoglobin 16.4 g/dL (14.0-18.0); Mean Corpuscular HGB CONC 33.5 g/dL (32.0-36.0); Mean Corpuscular Hemoglobin 31.2 pg (27.0-31.0); Mean Corpuscular Volume 93.4 fL (78.0-98.0); Mean Platelet Volume 8.8 fL (7.4-10.4); Platelet Count 244 thou/uL (130-400); RBC Distribution Width 12.9 % (11.5-14.5); Red Blood Cell (RBC) Count 5.26 mill/uL (4.70-6.10); White Blood Cell (WBC) Count 10.3 thou/uL (4.8-10.8)
[2018-11-13] MEDS ORDERED: Piperacillin/Tazobactam 3.375 GM VIAL ONE (09:31)
[2018-11-13] MEDS ORDERED: Sodium Chloride 0.9% 100 ML ONE (09:31)
[2018-11-13] MEDS ORDERED: Vancomycin HCl 500 MG VIAL ONE (09:36)
[2018-11-13 09:41] LABS: ALT (SGPT) 17 U/L (8-55); AST (SGOT) 4 U/L (5-34); Albumin 3.8 g/dL (3.5-5.0); Alkaline Phosphatase 87 U/L (40-150); Anion Gap 14 mmol/L (10-20); BUN (Urea Nitrogen) 11 mg/dL (8.4-25.7); Bilirubin, Total 0.3 mg/dL (0.2-1.2); Calc. Creatinine Clearance 0 mL/min (70-130); Calcium 9.2 mg/dL (7.8-10.44); Carbon Dioxide 21 mmol/L (22-29); Chloride 102 mmol/L (98-107); Estimated GFR-MDRD 80; Globulin 3.7 g/dL (2.4-3.5); Glucose 242 mg/dL (70-105); Protein, Total 7.5 g/dL (6.0-8.3); Sodium 133 mmol/L (136-145)
[2018-11-13] MEDS ORDERED: Ondansetron PF 4 MG/2 ML Vial IVP PRN ×2 (11:35→13:55)
[2018-11-13] MEDS ORDERED: Ondansetron ODT 4 MG TAB SL PRN (11:35)
[2018-11-13 11:53] VITALS: BMI 31.2
[2018-11-13 13:19] LABS: Lactic Acid 2.1 mmol/L (0.5-2.2)
[2018-11-13] MEDS ORDERED: Insulin Regular 300 UNITS/3 ML VIAL SC PRN (13:53)
[2018-11-13] MEDS ORDERED: Dextrose 5% in Water 1,000 ML IV PRN (13:53)
[2018-11-13] MEDS ORDERED: Dextrose 50% Abboject 50 ML SYRINGE SLOW IVP PRN (13:53)
[2018-11-13] MEDS ORDERED: Acetaminophen 325 MG TAB PO PRN (13:55)
[2018-11-13] MEDS ORDERED: Bisacodyl 5 MG TAB PO PRN (13:55)
[2018-11-13] MEDS ORDERED: Ondansetron ODT 4 MG TAB PO PRN (13:55)
[2018-11-13] MEDS ORDERED: Senokot S 8.6-50 MG TAB PO PRN (13:55)
[2018-11-13] MEDS ORDERED: HYDROcodone/Acetaminophen 5/325 mg Tablet PO PRN (13:55)
[2018-11-13] MEDS ORDERED: Calcium Carbonate 500 MG ChewTAB PO PRN (13:55)
[2018-11-13] MEDS ORDERED: Bisacodyl 10 MG SUPP PR PRN (13:55)
[2018-11-13] MEDS ORDERED: Sodium Chloride 0.9% 1,000 ML IV SCH (14:00)
[2018-11-13] MEDS ORDERED: diphenhydrAMINE 25 MG CAP PO PRN (14:09)
[2018-11-13] MEDS ORDERED: Loratadine 10 MG TAB PO SCH (14:15)
[2018-11-13] MEDS ORDERED: Aspirin 81 mg Enteric Coated Tablet PO SCH (14:15)
[2018-11-13] MEDS ORDERED: Morphine 2 MG/ML SYRINGE SLOW IVP PRN (14:17)
[2018-11-13] MEDS: Sodium Chloride 0.9% 1,000 ML IV SCH (14:33)
[2018-11-13] MEDS ORDERED: Piperacillin/Tazobactam 3.375 GM in Sodium Chloride 0.9% 100 ML IVPB SCH (15:30)
--- NOTE | 2018-11-13 15:41 | HP ---
PRIMARY CARE: The patient has seen Dr. Nette Stewart in the past. He does not have a primary care physician. PRIMARY GENERAL SURGEON: Dr. Gurrola. CHIEF COMPLAINT: Left foot ulceration. HISTORY OF PRESENT ILLNESS: The patient is a 58-year-old white male with coronary artery disease, diabetes mellitus type 2, hypertension, hyperlipidemia, and peripheral vascular disease, presented to the emergency room with above complaints. The patient was admitted at this facility 4 months ago with bilateral diabetic foot infection with osteomyelitis. He underwent amputation of the right 3rd, 4th, and the 5th toes through the proximal phalanx along with debridement of the left foot. He required another surgical intervention a month later on the right foot. He is followed by Dr. Gurrola every 1 to 2 months. He was scheduled to see Dr. Gurrola next week. The patient noticed two new blisters over the last 24 hours in his left foot. One of the blister ruptured. He also had significant pain in the left foot. The pain was 8/10. He denies any injury. No fever or chills reported. He also noticed some redness and swelling around the skin lesions. He received vancomycin and Zosyn in the emergency room after blood cultures. PAST MEDICAL HISTORY: 1. Coronary artery disease. 2. Peripheral vascular disease. 3. Hypertension. 4. Hyperlipidemia. 5. Obesity. 6. MALCOM inhibitor allergy. 7. Chronic systolic and diastolic heart failure. PAST SURGICAL HISTORY: 1. Coronary artery bypass grafting in 2010. 2. Left femoral-popliteal bypass in 2017. 3. Back surgery. 4. Hernia repair. 5. Bilateral foot surgery as discussed above. ALLERGIES: THE PATIENT IS ALLERGIC TO LISINOPRIL. CURRENT HOME MEDICATIONS: The patient is out of all of his medications over the last 2 months. He is in a process to find a new primary care physician. He also does not take 81 mg aspirin. FAMILY HISTORY: Mother and father with hypertension. SOCIAL HISTORY: The patient is . His ex- is the decision maker. He is full code. He continues to smoke on and off. REVIEW OF SYSTEMS: All other review of systems was reviewed and found negative. PHYSICAL EXAMINATION: VITAL SIGNS: Temperature 98.6, respirations 20, pulse rate of 96, blood pressure of 197/110, and O2 saturation 99% on room air. GENERAL: A 58-year-old male, in no apparent distress. Pain controlled at this time. HEENT: Head, atraumatic and normocephalic. Sclerae are anicteric. Moist mucous membranes. No oral lesion. NECK: Supple. No JVD appreciated. No carotid bruit. LUNGS: Clear to auscultation bilaterally. No wheezing, rales, or rhonchi. HEART: S1 and S2 present. Regular rate and rhythm. Healed midline scar from previous CABG. ABDOMEN: Soft, nontender, obese. Bowel sounds present. EXTREMITIES: No edema or calf tenderness. Please note that, the patient was evaluated by Wound Care and there is dressing over his left foot. I was unable to examine the left foot. Right foot showed complete transmetatarsal amputation that is well healed. PERIPHERAL VASCULAR: Radial pulses palpable bilaterally. I was unable to feel the dorsalis pedis and posterior tibial pulse on the left due to dressing present. NEUROLOGIC: Grossly nonfocal. Moves all 4 extremities. PSYCHIATRIC: Alert, awake, and oriented x3. Normal affect. LABORATORY FINDINGS: WBC 10.3, hemoglobin 16.4, hematocrit 49.1, platelets of 244. Chemistry showed sodium 133, potassium 4, chloride 102, bicarb 21, BUN 11, creatinine 0.96, glucose of 242. Lactic acid 3.0. LFTs in normal range. X-ray of the foot by my review showed no evidence of osteomyelitis. IMPRESSION: 1. Diabetic foot infection. 2. Diabetes mellitus, type 2. 3. Hypertension. 4. Hyperlipidemia. 5. Coronary artery disease. 6. Peripheral vascular disease, status post femoral-popliteal bypass. 7. History of coronary artery bypass grafting. 8. Obesity with a BMI of 31.2. 9. Chronic kidney disease, stage 2. 10. Lactic acidosis, probably secondary to suspected sepsis from #1. 11. Medication noncompliance. Please note, the patient is out of all of his medications including aspirin for last 2 months. PLAN: The patient will be monitored on the medical floor. Aspirin will be started. We will continue vancomycin and Zosyn. Gentle IV hydration, given his history of congestive heart failure. Resume Lipitor and beta blockers. He will be kept n.p.o. past midnight. Wound care consultation. Insulin sliding scale. Hold metformin due to lactic acidosis. Check hemoglobin A1c in a.m. We will get EKG and PT/INR for possible surgical intervention. Plan of care was discussed with the patient in detail. He stated understanding. Echocardiogram in May of 2017 showed ejection fraction of 55% to 60%. Job ID: [id number]
[2018-11-13] MEDS: Piperacillin/Tazobactam 3.375 GM in Sodium Chloride 0.9% 100 ML IVPB SCH (17:35)
[2018-11-13] MEDS: Insulin Regular 300 UNITS/3 ML VIAL SC PRN (17:45)
[2018-11-13] MEDS ORDERED: Atorvastatin Calcium 40 MG TAB PO SCH (21:00)
[2018-11-13] MEDS: Metoprolol Tartrate 25 MG TAB PO SCH (21:01)
[2018-11-13] MEDS: Vancomycin HCl 1.5 GM in Sodium Chloride 0.9% 250 ML 300 ML IVPB SCH (21:01)
[2018-11-13] MEDS ORDERED: Vancomycin HCl 1.5 GM in Sodium Chloride 0.9% 250 ML 300 ML IVPB SCH (21:30)
[2018-11-14] MEDS: Piperacillin/Tazobactam 3.375 GM in Sodium Chloride 0.9% 100 ML IVPB SCH ×2 (00:03→05:52)
[2018-11-14] MEDS: Insulin Regular 300 UNITS/3 ML VIAL SC PRN (06:00)
[2018-11-14] MEDS: Sodium Chloride 0.9% 1,000 ML IV SCH (06:02)
[2018-11-14 06:33] LABS: INR-International Normal Ratio 1.1; PTT 27.4 SEC (22.9-36.1)
[2018-11-14 06:34] LABS: #Basophils 0.1 thou/uL (0.0-0.2); #Eosinphils 0.2 thou/uL (0.0-0.7); #Lymphocytes 2.1 thou/uL (1.20-3.40); #Monocytes 0.6 thou/uL (0.11-0.59); #Neutrophils 5.4 thou/uL (1.40-6.50); %Eosinophils 2.8 % (0.0-10.0); %Lymphocytes 25.5 % (21.0-51.0); %Monocytes 6.8 % (0.0-10.0); Hemoglobin 15.6 g/dL (14.0-18.0); Mean Corpuscular HGB CONC 32.6 g/dL (32.0-36.0); Mean Corpuscular Hemoglobin 30.4 pg (27.0-31.0); Mean Corpuscular Volume 93.2 fL (78.0-98.0); Platelet Count 258 thou/uL (130-400); RBC Distribution Width 12.7 % (11.5-14.5); Red Blood Cell (RBC) Count 5.15 mill/uL (4.70-6.10); White Blood Cell (WBC) Count 8.4 thou/uL (4.8-10.8)
[2018-11-14 06:50] LABS: ALT (SGPT) 15 U/L (8-55); AST (SGOT) 6 U/L (5-34); Albumin 3.6 g/dL (3.5-5.0); Alkaline Phosphatase 81 U/L (40-150); Anion Gap 10 mmol/L (10-20); BUN (Urea Nitrogen) 11 mg/dL (8.4-25.7); Bilirubin, Total 0.4 mg/dL (0.2-1.2); Calc. Creatinine Clearance 122 mL/min (70-130); Calcium 9.2 mg/dL (7.8-10.44); Carbon Dioxide 26 mmol/L (22-29); Chloride 105 mmol/L (98-107); Estimated GFR-MDRD 74; Globulin 3.4 g/dL (2.4-3.5); Glucose 243 mg/dL (70-105); Magnesium 1.9 mg/dL (1.6-2.6); Potassium 4.2 mmol/L (3.5-5.1); Sodium 137 mmol/L (136-145)
[2018-11-14] MEDS ORDERED: Insulin Regular 300 UNITS/3 ML VIAL SC PRN (07:52)
[2018-11-14] MEDS: Vancomycin HCl 1.5 GM in Sodium Chloride 0.9% 250 ML 300 ML IVPB SCH (08:20)
[2018-11-14] MEDS: Metoprolol Tartrate 25 MG TAB PO SCH (08:20)
[2018-11-14] MEDS ORDERED: Saccharomyces boulardii 250 MG CAP PO SCH (09:00)
[2018-11-14] MEDS ORDERED: Aspirin 81 mg Enteric Coated Tablet PO SCH (09:00)
[2018-11-14 13:11] VITALS: TEMP 98.2
--- NOTE | 2018-11-14 13:47 | OP ---
DATE OF PROCEDURE: 11/14/2018 PREOPERATIVE DIAGNOSIS: Diabetic left foot neuropathic ulcer, status post amputation left first and second toes, metatarsals and other toes with left lateral foot blister. POSTOPERATIVE DIAGNOSIS: Diabetic left foot neuropathic ulcer, status post amputation left first and second toes, metatarsals and other toes with left lateral foot blister. PROCEDURE PERFORMED: Bedside debridement of skin, callus, excisional resectional 11-blade scalpel. Removal of skin over blister in lateral foot. ANESTHESIA: None. FINDINGS: No purulence. Healthy neuropathic ulcer. No tunneling. No sinus tracts. Only debrided skin without infection. DESCRIPTION OF PROCEDURE: With the patient at the bedside, left diabetic foot neuropathic ulcer medial plantar callus surrounding the open wounds, debrided sharply. There was a sinus tract, and this was callused, opened, and callus debrided. There were healthy wound edges. There was healthy neuropathic base. There was no connection to the bone. Wound Care plaque team placed a dressing. Blister from left lateral foot wound excised sharply and wound care place with dressing. Advised to use shoes and socks whenever out of bed. Daily cleanse the foot with soap and water and wound care. Outpatient wound care would be advised. Job ID: [id number]
--- NOTE | 2018-11-14 15:29 | CON ---
DATE OF CONSULTATION: HISTORY OF PRESENT ILLNESS: Mr. Black is a 58-year-old male patient, well known to me from previous right femoral popliteal artery bypass grafting in July 2016, Dr. Conti with amputations of multiple toes and metatarsals of right foot and great toe and second toe and metatarsal left foot. I have been seeing him regarding a neuropathic diabetic ulcer of plantar left foot for some time. He is willing to see me later in the week. I last saw him about 2 weeks ago and debrided this. He was admitted to the hospital on this occasion with a left foot problem. Plain x-rays of the foot do not reveal any remarkable bony changes. He has chronic changes in the metatarsals from previous amputation. He has been admitted and placed on intravenous antibiotics. I have seen him on 11/14/2018 after he has been on antibiotics for 24 hours. On evaluation, he has a neuropathic ulcer in left foot. He has a small sinus tract just beneath the callus skin medially. This is opened up at bedside with a Q-tip. There is no cellulitis or purulent drainage. There is no sinus tract to the bone. He has a blister over his lateral left foot. The loose skin of which was removed and there was a superficial problem. He states he was not wearing socks or shoes. This morning, I will plan on debriding the callus at the bedside and from my standpoint, he can be discharged home with followup in my office next week. He does not need any antibiotics for this problem. He can be discharged home today. Continue local wound care, washing the foot with soap and water daily and placing antibiotic ointment and Band-Aids or dressings as necessary. PAST MEDICAL HISTORY: Coronary artery disease; PAD, status post right femoral-popliteal in 2017, Dr. Conti; hypertension; hyperlipidemia; chronic diastolic heart failure; diabetes; and neuropathy. PAST SURGICAL HISTORY: Coronary artery bypass graft in 2010; in 2017, left femoral-popliteal; back surgery; hernia repair; multiple foot operations; and umbilical hernia repair. MEDICATIONS: At home, 1. Metformin 500 b.i.d. 2. Plavix 75 mg a day. 3. Atorvastatin 40 mg a day. 4. Aspirin 81 mg a day. 5. Metoprolol 25 mg b.i.d. SOCIAL HISTORY: Tobacco, none. PHYSICAL EXAMINATION: VITAL SIGNS: Height 6 feet and 3 inches, weight 250 pounds, BMI 31. Temperature 97.9, pulse 77, and blood pressure 136/82. HEENT: Unremarkable. LUNGS: Clear to auscultation. CARDIAC: Regular rate and rhythm without murmur or gallop. ABDOMEN: Soft and nontender. No masses. EXTREMITIES: Palpable femoral and posterior tibial pulses, left. Neuropathic ulcer, left foot medially. Healthy granulating base. No deep sinus tracts. There is small sinus tract, many callus on the medial left foot opened with a Q-tip. There is no end cellulitis. Blister in lateral left foot. Loose skin removed. There is healthy skin beneath this. ASSESSMENT AND PLAN: Diabetic blister, left foot. Wash wound daily with soap and water and place antibiotic ointment and Band-Aid. Diabetic callus neuropathic ulcer, left foot. Daily wound care, washing with soap and water, place antibiotic ointment and Band-Aid. We would recommend wearing good socks and good fitting shoes at all times when out of bed. We will plan bedside debridement. The patient can be discharged home on his home medications. He does not need oral antibiotics. He has a followup appointment in my office in end of this month. Job ID: [id number]
[2018-11-14 15:35] VITALS: BP 145/88
[2018-11-14] MEDS ORDERED: metFORMIN 500 MG TAB PO SCH (17:00)
[2018-11-15] MEDS ORDERED: Clopidogrel Bisulfate 75 MG TAB PO SCH (09:00)
[2018-11-15] MEDS ORDERED: Aspirin 81 mg Enteric Coated Tablet PO SCH (09:00)
--- NOTE | 2018-11-15 10:40 | DIS ---
DATE OF ADMISSION: 11/13/2018 DATE OF DISCHARGE: 11/14/2018 DISCHARGE DISPOSITION: Home. FOLLOWUP: 1. Follow up with primary care physician in 1 week. The patient has seen Dr. Nette Stewart in the past. He will try to establish care at [facility] in [place]. 2. He will also follow up with Dr. Gurrola as scheduled. DISCHARGE MEDICATIONS: A one-month supply of all of his home medications were provided. Please note that the patient was out of all of his medications for last 2 months. He was also not taking aspirin. 1. Aspirin 81 mg daily. 2. Lipitor 40 mg at bedtime. 3. Plavix 75 mg daily. 4. Metformin 500 mg b.i.d. 5. Metoprolol tartrate 25 mg b.i.d. INPATIENT DIATHERMY EQUIPMENT REPAIRER: General Surgery, Dr. Gurrola. INPATIENT PROCEDURE: The patient underwent incision and drainage of the left foot neuropathic ulcer by Dr. Gurrola at the bedside. BRIEF HOSPITAL COURSE: The patient is a 58-year-old white male with coronary artery disease, chronic diabetic foot ulcer, presented to the hospital with left foot ulceration. Please refer to the history and physical for further details. The patient was admitted to the hospital with a diagnosis of infected diabetic foot ulcer. He was started on broad-spectrum antibiotics. He was kept n.p.o. past midnight for possible surgical intervention. Blood cultures remain negative. He was seen by General Surgery, Dr. Gurrola and underwent bedside debridement. There was no purulence noted. Dr. Gurrola recommended to discontinue antibiotics and to discharge him home to follow up with outpatient wound care. The patient was advised to follow up on final blood culture report. His hemoglobin A1c was 9.0. Please note that the patient has not taken any of his home medications including aspirin for last [address] Nette Stewart left practice. His left foot x-ray was negative for osteomyelitis or gas. FINAL DIAGNOSES: 1. Diabetic left foot neuropathic ulcer with suspected infection. The patient underwent debridement. 2. Diabetes mellitus type 2. A1c was 9.0. 3. Hypertension. 4. Hyperlipidemia. 5. Coronary artery disease. 6. Peripheral vascular disease, status post femoral-popliteal bypass. 7. History of coronary artery bypass grafting. 8. Obesity with a BMI of 31.2. 9. Chronic kidney disease, stage 2. 10. Lactic acidosis on admission, resolved. 11. Medication noncompliance. PLAN: Plan was discussed with the patient in detail. He stated understanding. Job ID: [id number]
== END 2018-11-14 15:38 | disposition home or self-care (01) | DRG 638 ==
LOC: ERS 08:18 → T4-B 10:05
PROVIDERS: ADMIT Internal Medicine; ATTEND Internal Medicine
PROC: 0HBNXZZ Excision of Left Foot Skin, External Approach (ICD-10-PCS; principal; 2018-11-14)
DX: E11.621 Type 2 diabetes mellitus with foot ulcer (principal); I50.42 Chronic combined systolic (congestive) and diastolic (congestive) heart failure; I13.0 Hypertensive heart and chronic kidney disease with heart failure and stage 1 through stage 4 chronic kidney disease, or unspecified chronic kidney disease; E87.2 Acidosis; E11.40 Type 2 diabetes mellitus with diabetic neuropathy, unspecified; E78.00 Pure hypercholesterolemia, unspecified; I25.10 Atherosclerotic heart disease of native coronary artery without angina pectoris; E11.51 Type 2 diabetes mellitus with diabetic peripheral angiopathy without gangrene; E66.9 Obesity, unspecified; L97.529 Non-pressure chronic ulcer of other part of left foot with unspecified severity; E11.22 Type 2 diabetes mellitus with diabetic chronic kidney disease; N18.2 Chronic kidney disease, stage 2 (mild); Z91.14 Patient's other noncompliance with medication regimen; Z79.84 Long term (current) use of oral hypoglycemic drugs; Z95.1 Presence of aortocoronary bypass graft; Z88.8 Allergy status to other drugs, medicaments and biological substances; Z89.421 Acquired absence of other right toe(s); Z68.31 Body mass index [BMI] 31.0-31.9, adult; Z79.82 Long term (current) use of aspirin; Z79.01 Long term (current) use of anticoagulants
CPT/HCPCS: 36415; 36416; 80053; 83036; 83605; 83735; 85025; 85610; 85730; 87040; 93005; 93010; 96365; J1815; J2543; J3370; J3490; J7050

== ENCOUNTER 2019-02-11 18:42 | Inpatient (IN) | payer MEDICARE, SELFPAY ==
[~2019-02-11 18:42] MED LIST changes: +Heparin 1,000 UNITS/ML VIAL ONE; -Lidocaine 2% Jelly 5 ML TUBE ONE; -Sodium Chloride 0.9% 15 ML NEB ONE
[2019-02-11] MEDS ORDERED: Piperacillin/Tazobactam 4.5 GM VIAL ONE (18:55)
[2019-02-11] MEDS ORDERED: Acetaminophen 500 MG TAB ONE (19:01)
[2019-02-11 19:10] LABS: Hemoglobin 13.1 g/dL (14.0-18.0); Mean Corpuscular HGB CONC 32.5 g/dL (32.0-36.0); Mean Corpuscular Hemoglobin 29.7 pg (27.0-31.0); Mean Corpuscular Volume 91.3 fL (78.0-98.0); Mean Platelet Volume 8.9 fL (7.4-10.4); Platelet Count 290 thou/uL (130-400); Red Blood Cell (RBC) Count 4.41 mill/uL (4.70-6.10); White Blood Cell (WBC) Count 15.6 thou/uL (4.8-10.8)
--- NOTE | 2019-02-11 19:14 | RAD ---
PORTABLE CHEST: 02/11/19 HISTORY: Sepsis. COMPARISON: 12/16/16 study. Heart size is within normal limits. Postop sternotomy changes are present. The lungs show some chroni c change. No focal infiltrates. IMPRESSION: No active intrathoracic disease. POS: [facility]
[2019-02-11 19:29] LABS: Band 8 % (5-11); Lymphocytes 7 % (21-51); MDiff Complete? YES; Monocytes 1 % (0-10); Neutrophil 83 % (42-75); Platelet Morphology Comment Appears Adequate; RBC Morphology Normal; Reactive Lymphocytes 1 % (0-10)
[2019-02-11 19:30] LABS: ALT (SGPT) 48 U/L (8-55); AST (SGOT) 22 U/L (5-34); Albumin 3.1 g/dL (3.5-5.0); Alkaline Phosphatase 120 U/L (40-110); Anion Gap 16 mmol/L (10-20); BUN (Urea Nitrogen) 12 mg/dL (8.4-25.7); Bilirubin, Total 0.6 mg/dL (0.2-1.2); Calc. Creatinine Clearance 0 mL/min (70-130); Carbon Dioxide 22 mmol/L (22-29); Chloride 98 mmol/L (98-107); Estimated GFR-MDRD 64; Globulin 4.6 g/dL (2.4-3.5); Glucose 188 mg/dL (70-105); Potassium 3.9 mmol/L (3.5-5.1); Protein, Total 7.7 g/dL (6.0-8.3); Sodium 132 mmol/L (136-145)
[2019-02-11 19:52] LABS: CKMB 0.8 ng/mL (0-6.6)
[2019-02-11] MEDS ORDERED: Ketorolac Tromethamine 30 MG/ML VIAL ONE (19:54)
--- NOTE | 2019-02-11 19:58 | RAD ---
RIGHT FOOT THREE VIEWS: 02/11/19 COMPARISON: 06/13/18 study. HISTORY: Diabetic with ulcers. Evaluation for osteomyelitis. Since that prior examination, the patient has undergone amputation of the third, fourth and fifth toe s. The third metatarsal head is essentially absent. I would favor that this is probably related to po stoperative change. I do not see gross bony destructive changes. If indicated, further evaluation wit h MRI is suggested. IMPRESSION: No definite plain film evidence for osteomyelitis. Changes of the third metatarsal head are felt to b e postop. If indicated MRI is suggested. POS: [facility]
--- NOTE | 2019-02-11 20:00 | RAD ---
LEFT FOOT THREE VIEWS: 02/11/19 COMPARISON: 11/13/18 study. HISTORY: Diabetic ulcer. There is an ulcer involving the region adjacent to the distal end of the partially amputated first me tatarsal. I do not see any plain film evidence for osteomyelitis. Deformity of the second metatarsal and third metatarsophalangeal joints are stable. IMPRESSION: No plain film evidence for osteomyelitis. POS: [facility]
[2019-02-11 20:28] LABS: Bilirubin Negative (Negative); Blood, Urine 3+ (Negative); Clarity Turbid (Clear); Glucose, Urine (Dipstick) 50 mg/dL (Negative); Leukocyte 250 Leu/uL (Negative); Nitrite Negative (Negative); Protein, Urine (Dipstick) 200 mg/dL (Neg-Trace); RBC/HPF Greater than 50 HPF (0-3); Squamous Epithelial None Seen HPF (0-3); Urobilinogen Normal mg/dL (Less than 2); WBC/HPF Greater than 50 HPF (0-3)
[2019-02-11 20:33] LABS: Bacteria/HPF 3+ HPF (None Seen)
[2019-02-11 20:35] LABS: Yeast-Budding 2+ HPF (None Seen); Yeast-Hyphae 1+ HPF (None Seen)
[2019-02-11 20:38] LABS: White Blood Cell Cast 0-3 LPF (None Seen)
[2019-02-11 22:18] LABS: Troponin I 0.017 ng/mL (< 0.028)
[2019-02-11] MEDS ORDERED: HumaLOG 300 UNITS/3 ML VIAL SC PRN (22:48)
[2019-02-11] MEDS ORDERED: hydrALAZINE 20 MG/ML VIAL SLOW IVP PRN (22:48)
[2019-02-11] MEDS ORDERED: Acetaminophen 500 MG TAB PO PRN (22:48)
[2019-02-11] MEDS ORDERED: Sodium Chloride 0.9% 1,000 ML IV SCH (22:48)
[2019-02-11] MEDS ORDERED: Dextrose 50% Abboject 50 ML SYRINGE SLOW IVP PRN (22:48)
[2019-02-11] MEDS ORDERED: Ondansetron PF 4 MG/2 ML Vial IVP PRN (22:48)
[2019-02-11] MEDS ORDERED: Dextrose 5% in Water 1,000 ML IV PRN (22:48)
[2019-02-11] MEDS ORDERED: Ondansetron ODT 4 MG TAB PO PRN (22:48)
[2019-02-11] MEDS ORDERED: Clindamycin/D5W 900 MG in Premix Bag 1 BAG IVPB SCH (23:00)
[2019-02-11] MEDS: Clindamycin/D5W 900 MG in Premix Bag 1 BAG IVPB SCH (23:29)
[2019-02-11] MEDS: Sodium Chloride 0.9% 1,000 ML IV SCH (23:51)
[2019-02-12] MEDS: Piperacillin/Tazobactam 4.5 GM in Sodium Chloride 0.9% 100 ML IVPB SCH ×4 (00:06→19:52)
--- NOTE | 2019-02-12 01:08 | HP ---
PRIMARY CARE PROVIDER: [facility] [place], [place]. CHIEF COMPLAINT: Left foot drainage. HISTORY OF PRESENT ILLNESS: This is a 58-year-old male, who presents to [facility] Emergency Department complaining of drainage of left foot with redness noted on the top portion of his foot with malodorous discharge. The patient with significant history of prior diabetic foot ulcerations and neuropathic ulcers requiring incision and drainage in November 2018. The patient with multiple amputations of toes with transmetatarsal amputation of the right foot. The patient noted generalized weakness, swelling, and difficulty ambulating on his left foot in the last 24 to 48 hours. The patient denied any documented fever, but felt generally run down. The patient had been provided wound care services in the past after amputation of his toes as well as diabetic ulceration. In the emergency room, the patient underwent general evaluation including plain radiographs of the feet showing no obvious evidence of osteomyelitis. The patient was noted with criteria for sepsis due to the left foot infection, receiving intravenous normal saline as well as Toradol, vancomycin and Zosyn. The patient was referred to the Hospitalist Service for further evaluation. PAST MEDICAL HISTORY: 1. Diabetic neuropathic foot ulcerations. 2. Hypertension. 3. Diabetes mellitus type 2 with peripheral neuropathy. 4. Coronary artery disease. PAST SURGICAL HISTORY: 1. Status post coronary artery bypass grafting x3 vessels. 2. Status post hernia repair. 3. Status post right transmetatarsal amputation. 4. 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 5. Status post lumbar spine surgery. CURRENT MEDICATIONS: 1. Metformin 500 mg p.o. b.i.d. 2. Plavix 75 mg p.o. daily. 3. Lipitor 20 mg p.o. daily. 4. Metoprolol tartrate 25 mg p.o. b.i.d. ALLERGIES: TO MALCOM INHIBITORS. FAMILY HISTORY: Mother and father with hypertension. SOCIAL HISTORY: The patient is . Smokes up to half a pack of cigarettes daily. Occasional alcohol use. No illicit drug use. REVIEW OF SYSTEMS: CONSTITUTIONAL: Negative for weight loss or gain, ability to conduct usual activities. SKIN: Negative for rash, itching. EYES: Negative for double vision, pain. ENT/MOUTH: Negative for nose bleeding, neck stiffness, pain, tenderness. CARDIOVASCULAR: Negative for palpitations, dyspnea on exertion, orthopnea. RESPIRATORY: Negative for shortness of breath, wheezing, cough, hemoptysis, fever or night sweats. GASTROINTESTINAL: Negative for poor appetite, abdominal pain, heartburn, nausea, vomiting, constipation, or diarrhea. GENITOURINARY: Negative for urgency, frequency, dysuria, nocturia. MUSCULOSKELETAL: Negative for pain, swelling. NEUROLOGIC/PSYCHIATRIC: Negative for anxiety, depression. ALLERGY/IMMUNOLOGIC: Negative for skin rash, bleeding tendency. Otherwise negative except as stated per HPI. PHYSICAL EXAMINATION: VITAL SIGNS: On admission, blood pressure 108/58, pulse 120, respiratory rate 18, temperature 98.6 degrees Fahrenheit, O2 saturation 95% on room air. GENERAL APPEARANCE: This is a 58-year-old male, alert and oriented x3, pleasant, responsive, in no acute distress. HEENT: Pupils are equal, round, reactive to light and accommodation. Extraocular muscles are intact. No scleral icterus. No conjunctival injection. Nares are patent. OP is clear. Oral mucosa dry. NECK: Supple. No cervical adenopathy. No thyromegaly. No carotid bruits. No JVD appreciated. Cervical spine with full active and passive range of motion. No meningeal signs noted. CHEST: Lungs are clear to auscultation bilaterally. CARDIOVASCULAR: S1 and S2 with tachycardia. ABDOMEN: Obese, soft, nontender, and nondistended. Bowel sounds are positive in all 4 quadrants. There is no hepatosplenomegaly. No abdominal bruits. No rebound or guarding appreciated. EXTREMITIES: Warm and dry with fair turgor. Postsurgical changes of the left foot with multiple amputated toes with deformity. Plantar aspect of the left foot with 3 cm in diameter ulcer with malodorous serous drainage with granulation material in the base. Positive edema to the entire foot with erythema of the dorsum of the foot near the ankle. Pulses are diminished at the dorsalis pedis and posterior tibial arteries. Right foot with erythema and transmetatarsal amputation changes consistent with prior surgical history. NEUROLOGIC: Cranial nerves 2 through 12 are grossly intact. No sensation of bilateral feet. PERTINENT LABORATORY DATA AND X-RAY FINDINGS: Sodium 132, potassium 3.9, chloride 98, CO2 of 22, BUN 12, creatinine 1.16, estimated GFR 64, glucose 188. Lactic acid level 1.4, calcium 9.0, alkaline phosphatase 120. Troponin I ranged between 0.017 to 0.035. CRP 30.66. CBC showed a white blood cell count of 15.6, hemoglobin 13, hematocrit 40, platelet count 290 with 83% neutrophils. ESR 118. Urinalysis positive for leukocyte esterase, positive blood and greater than 50 to tev-[id number]-count RBCs and WBCs per high-power field. Influenza A and B antigen dated 02/11/2019, negative. Left foot wound culture dated 02/11/2019, Gram stain shows many gram-positive cocci in pairs and clusters, few gram-negative rods. Portable chest x-ray dated 02/11/2019, showed no acute cardiopulmonary process. Three views of the left foot dated 02/11/2019, showed no plain film evidence for osteomyelitis. EKG dated 02/11/2019, by my interpretation shows sinus tachycardia with heart rates in the 130s. Attenuated R-waves noted in the precordial leads. Left axis deviation. No acute ST-T wave changes noted. ASSESSMENT AND PLAN: 1. Sepsis secondary to left diabetic foot ulcer. The patient will be admitted to the telemetry unit. We will continue general sepsis protocol. Continue IV fluids with normal saline at 150 mL/h. Continue vancomycin 1 g IV q.12 hours with additional Zosyn 4.5 g IV q.6 hours. Add clindamycin 900 mg IV q.8 hours. Wound cultures pending. 2. Diabetic left neuropathic ulcer. Continue treatment as outlined in #1. Consult General Surgery Service in the a.m. for incision and drainage with debridement. No plain radiographic evidence of osteomyelitis. 3. Sinus tachycardia secondary to sepsis. We will continue IV fluids with normal saline at 150 mL/h. Resume home regimen of metoprolol. Continue telemetry monitoring. 4. Acute kidney injury on chronic kidney disease, stage 2. Continue IV fluids as outlined previously. Avoid nephrotoxic agents and limit contrast exposure. Serial creatinine monitoring. 5. Diabetes mellitus type 2 with peripheral neuropathy. Insulin sliding scale for reflexive coverage. Resume home regimen of metformin 500 mg b.i.d. Serial Accu-Cheks. ADA diet. 6. Prophylaxis. SCDs while in bed. Pepcid 20 mg p.o. b.i.d. Confirm tetanus immunization status. Wound care consult in the a.m. CODE STATUS: Full. Surrogate medical decision maker is Alana Black. Job ID: [id number]
[2019-02-12 01:15] LABS: Troponin I 0.037 ng/mL (< 0.028)
[2019-02-12] MEDS: Sodium Chloride 0.9% 1,000 ML IV SCH (03:54)
[2019-02-12 04:11] LABS: Band 5 % (5-11); Hemoglobin 12.3 g/dL (14.0-18.0); Hypochromia SLIGHT = 6-15 cells (100X) (0-5/hpf); Lymphocytes 9 % (21-51); MDiff Complete? YES; Mean Corpuscular HGB CONC 32.8 g/dL (32.0-36.0); Mean Corpuscular Hemoglobin 30.4 pg (27.0-31.0); Mean Corpuscular Volume 92.9 fL (78.0-98.0); Monocytes 2 % (0-10); Neutrophil 84 % (42-75); Platelet Count 266 thou/uL (130-400); Platelet Morphology Comment Appears Adequate; Red Blood Cell (RBC) Count 4.05 mill/uL (4.70-6.10); White Blood Cell (WBC) Count 14.8 thou/uL (4.8-10.8)
[2019-02-12 04:20] LABS: ALT (SGPT) 48 U/L (8-55); AST (SGOT) 19 U/L (5-34); Albumin 2.7 g/dL (3.5-5.0); Alkaline Phosphatase 107 U/L (40-110); Anion Gap 16 mmol/L (10-20); BUN (Urea Nitrogen) 17 mg/dL (8.4-25.7); Bilirubin, Total 0.5 mg/dL (0.2-1.2); Calc. Creatinine Clearance 95 mL/min (70-130); Calcium 8.4 mg/dL (7.8-10.44); Carbon Dioxide 21 mmol/L (22-29); Chloride 103 mmol/L (98-107); Estimated GFR-MDRD 50; Globulin 4.1 g/dL (2.4-3.5); Glucose 157 mg/dL (70-105); Potassium 3.7 mmol/L (3.5-5.1); Protein, Total 6.8 g/dL (6.0-8.3); Sodium 136 mmol/L (136-145)
[2019-02-12] MEDS ORDERED: Ketorolac Tromethamine 30 MG/ML VIAL IVP SCH (04:45)
[2019-02-12] MEDS ORDERED: Famotidine 20 MG TAB PO SCH (09:00)
[2019-02-12] MEDS: Metoprolol Tartrate 25 MG TAB PO SCH ×2 (09:25→21:14)
[2019-02-12] MEDS: Clopidogrel Bisulfate 75 MG TAB PO SCH (09:25)
[2019-02-12] MEDS: Clindamycin/D5W 900 MG in Premix Bag 1 BAG IVPB SCH ×3 (09:25→23:45)
[2019-02-12] MEDS: metFORMIN 500 MG TAB PO SCH ×2 (09:25→18:13)
[2019-02-12] MEDS: Vancomycin HCl 1.75 GM in Sodium Chloride 0.9% 500 ML IVPB SCH ×2 (09:26→21:13)
[2019-02-12] MEDS: Ketorolac Tromethamine 30 MG/ML VIAL IVP PRN (11:32)
[2019-02-12] MEDS ORDERED: traMADol HCl 50 MG TAB PO PRN (11:38)
[2019-02-12] MEDS ORDERED: Sodium Chloride 0.9% 1,000 ML IV SCH (12:00)
--- NOTE | 2019-02-12 12:33 | CON ---
DATE OF CONSULTATION: HISTORY OF PRESENT ILLNESS: Robel Black is a 58-year-old patient, well known to me. The patient was admitted at 1 o'clock this morning for a septic diabetic foot. He was given a diabetic diet this morning. Then, I was consulted to see him after that. He has consumed at 0900 sausage and breakfast meal. The patient has had imaging on both feet. He has had transmetatarsal amputation in his right foot and has had amputation in right great toe and 2nd toe of his left foot with left toes 3, 4, and 5 remaining. The patient has a diabetic abscess over his lateral right foot over his 5th metatarsal with thin skin. When I probed that, he has purulent discharge. He has cellulitis to the ankle, and when I probed, the metatarsal was exposed. He has a neuropathic ulcer on his left foot approximately 3 cm in diameter overlying the plantar metatarsal head from previous amputation of his 1st and 2nd toes. He has purulent discharge from that when probed. This communicates with the metatarsal 1st. X-rays of the right foot did not reveal any plain film radiological evidence of osteomyelitis. X-rays of the left foot also does not reveal osteomyelitis. The patient has been placed on vancomycin and clindamycin, and again, I was consulted for surgical evaluation after the patient was given a regular diet. ALLERGIES: MALCOM INHIBITORS AND LISINOPRIL. TOBACCO: None. PAST MEDICAL HISTORY: Diabetes mellitus type 2; neuropathy; stable coronary artery disease; hypertension; neuropathic ulcer, left foot; dyslipidemia. The patient has had a left femoral popliteal artery bypass graft on 08/07/2016. PAST SURGICAL HISTORY: Coronary artery bypass grafting, three vessels; hernia repair; transmetatarsal amputation, right foot; amputations of toes 1 and 2 and metatarsals, left foot; and lumbar spine surgery. MEDICATIONS: Vancomycin and clindamycin. At home, he takes 1. Metformin 500 b.i.d. 2. Metoprolol 25 b.i.d. 3. Plavix 75 a.m. 4. Lipitor 40 h.s. 5. Aspirin 81 mg a day. PHYSICAL EXAMINATION: VITAL SIGNS: Height 6 feet 3 inches, weight 268 pounds, 33 BMI. Temperature 97.6, heart rate 87, blood pressure 103/57. LUNGS: Clear to auscultation. CARDIAC: Regular rate and rhythm without murmur or gallop. ABDOMEN: Soft and nontender. EXTREMITIES: Palpable femoral and popliteal pulses bilaterally. Transmetatarsal amputation in right foot with cellulitis extending from his transmetatarsal amputation stump laterally up to his ankle. He has thinned out skin that when probed easily passes through this blister and communicates with the metatarsal with yessica purulent material draining. On the left foot, he has a neuropathic 3 cm ulcer underlying the great metatarsal head. He has had prior amputation of his left 1st and 2nd toes and metatarsals. He has cellulitis extending to his ankle on this foot as well. He has great metatarsal probed and palpated on probing with a Q-tip. LABORATORY DATA: White count 14 and hemoglobin 12. Basic metabolic profile as above. ASSESSMENT AND PLAN: 1. Diabetic septic foot infections bilaterally. We would recommend debridement of abscesses of both feet, resections of involved metatarsals, small metatarsal right and great metatarsal, left and wound VAC application; cultures. IV antibiotics. Arrangement for outpatient wound VAC, orthotics shoes. The patient understands risks and benefits and consents. We will proceed. 2. Diabetes mellitus. 3. Obesity. 4. Hypertension. 5. Coronary artery disease. 6. Peripheral artery disease, status post femoral-popliteal, left, by Dr. Conti. Job ID: [id number]
[2019-02-12] MEDS ORDERED: Rocuronium Bromide 10 MG/ML (10ML VIAL) ONE (12:52)
[2019-02-12] MEDS ORDERED: Calcium Chloride 1 GM/10 ML Abboject SYRINGE ONE (12:52)
[2019-02-12] MEDS ORDERED: Lidocaine 1% PF 5 ML VIAL ONE (12:52)
[2019-02-12] MEDS ORDERED: PROPOFOL 200 MG/20 ML VIAL ONE (12:52)
[2019-02-12] MEDS ORDERED: PHENYLEPHRINE-NS 100 MCG/ML 10 ML SYRINGE ONE (12:52)
[2019-02-12] MEDS ORDERED: Succinylcholine Chloride 20 MG/ML 10 ml SYRINGE FS ONE (12:52)
[2019-02-12] MEDS: Lactated Ringer's 1,000 ML IV SCH ×3 (13:15→21:20)
[2019-02-12] MEDS ORDERED: Fentanyl 100 MCG/2 ML VIAL ONE ×2 (16:08→17:51)
[2019-02-12] MEDS ORDERED: Clindamycin/D5W 900 mg/50 ml Premix Bag ONE (16:13)
[2019-02-12] MEDS ORDERED: Phenylephrine HCL 10 MG/ML VIAL ONE (16:50)
[2019-02-12] MEDS ORDERED: SUGAMMADEX SODIUM 200 MG/2 ML VIAL ONE (17:31)
[2019-02-12] MEDS ORDERED: Sodium Chloride 0.9% (PF) 10 ML VIAL FS PRN (18:12)
[2019-02-12] MEDS ORDERED: Propofol BOLUS 1,000 MG/100 ML VIAL IV PRN (18:13)
[2019-02-12] MEDS ORDERED: Morphine 2 MG/ML SYRINGE SLOW IVP PRN (18:13)
[2019-02-12] MEDS ORDERED: DISCONTINUE PREVIOUS NARCOTIC PAIN MEDICATIONS AND BENZODIAZEPINES FS SCH (18:13)
[2019-02-12] MEDS ORDERED: Lorazepam 2 MG/ML VIAL SLOW IVP PRN (18:13)
[2019-02-12] MEDS ORDERED: Fentanyl BOLUS 250 ML IVPB PRN (18:13)
[2019-02-12] MEDS ORDERED: Ventilator Sedation Protocol 1 EACH FS SCH (18:15)
[2019-02-12 18:40] LABS: Actual Bicarbonate (HCO3a) 21.8 mEq/L (22-28); Base Excess (BEa) -5.1 mEq/L (-2.0 to +3.0); CO2 Tension 47.7 mmHg (35.0-45.0); Calcium, Ionized 1.21 mmol/L (1.12-1.30); Carboxyhemoglobin (COHb) 0.8 gm% (0.0-3.0); Hemoglobin (Hb) 12.9 g/dL (14.0-18.0); O2 Tension (PaO2) 67.2 mmHg (> 80.0); Potassium - ABG Lab 4.04 mmol/L (3.70-5.30); pH, Arterial 7.28 (7.35-7.45)
[2019-02-12 18:44] LABS: ALV-art Gradient 372.275 (0-20); Puncture Site RBR
[2019-02-12] MEDS: fentaNYL Citrate/PF 2,000 MCG in Sodium Chloride 0.9% 60 ML IV SCH (18:46)
[2019-02-12] MEDS: Propofol 1,000 MG/100 ML VIAL IV PRN ×2 (18:47→21:56)
--- NOTE | 2019-02-12 19:33 | RAD ---
CHEST ONE VIEW: HISTORY: Intubated history. COMPARISON: Radiograph from the prior day. FINDINGS: The patient is intubated with endotracheal tube tip over the clavicles. There is right upper lobe ate lectasis. A central venous catheter tip projects over the mid SVC. Heart size is enlarged. Small effusions. IMPRESSION: 1. Endotracheal tube tip at the level of the clavicles. 2. Enteric tube tip at the gastric body. 3. Right upper lobe partial collapse. 4. New central venous catheter with tip projecting over the mid superior vena cava. No left-sided pne umothorax. POS: HOME
[2019-02-12] MEDS ORDERED: Norepinephrine 8 MG in Dextrose 5% in Water 242 ML IVPB SCH (19:45)
[2019-02-12] MEDS ORDERED: Atorvastatin Calcium 40 MG TAB PO SCH (21:00)
[2019-02-13] MEDS: Piperacillin/Tazobactam 4.5 GM in Sodium Chloride 0.9% 100 ML IVPB SCH ×4 (00:39→17:51)
[2019-02-13] MEDS: Propofol 1,000 MG/100 ML VIAL IV PRN ×5 (00:41→23:44)
[2019-02-13] MEDS: Lactated Ringer's 1,000 ML IV SCH ×4 (01:31→17:48)
--- NOTE | 2019-02-13 02:04 | OP ---
DATE OF PROCEDURE: 02/12/2019 PREOPERATIVE DIAGNOSES: Diabetic foot abscesses and septic foot with sepsis, on Levophed drip in the OR. POSTOPERATIVE DIAGNOSES: Diabetic foot abscesses and septic foot with sepsis, on Levophed drip in the OR with extensive purulent infection in both feet. Prior history of left foot amputations, 1st and 2nd toes and right foot transmetatarsal amputation. The left great toe metatarsal and cuneiform involved and the right 5th metatarsal involved. PROCEDURES PERFORMED: Incision and drainage of bilateral foot abscess, debridement of skin and subcutaneous tissue, muscle, and tendon and connective tissue with resection of the right great 5th metatarsal partially and complete resection of the left 1st metatarsal and debridement of the cuneiform. Wound Care Team arrival. Placement of wound VAC. Placement of subclavian vein central line, left. ANESTHESIA: General, required pressors. DESCRIPTION OF PROCEDURE: The patient was taken to the operating room, where under general anesthesia, both lower extremities were prepped with Betadine and draped in routine fashion. The patient had purulent discharge from both feet with cellulitis. Incision was made in the right foot, resecting the remaining 5th metatarsal. Culture submitted along with cultures from the left foot in combination. Pulse irrigation was performed. Necrotic skin, subcutaneous tissue, connective tissue debrided sharply. Wound was irrigated with pulse senior housekeeper. Wound VAC applied. Incision was made on the left. He had a neuropathic ulcer which was debrided involving the 1st metatarsal. This was resected proximally and purulent material was in the proximal foot up towards the dorsum along the tendon sheath. I resected the entire metatarsal as there was purulent material between the 1st metatarsal and the cuneiform. Cuneiform articular surface dissected free with a rongeur. Connective tissue, skin, subcutaneous tissue, soft tissue dissected free and excised were purulent and necrotic. Wound VAC applied. Left subclavian vein triple-lumen catheter placed using Seldinger technique after ChloraPrep. Secured with 3-0 nylon suture. J-wire removed. Patient tolerated the procedure well. Job ID: [id number]
--- NOTE | 2019-02-13 03:17 | OP ---
DATE OF PROCEDURE: 02/12/2019 PROCEDURE PERFORMED: Fiberoptic bronchoscopy. PREOPERATIVE DIAGNOSIS: Right upper lobe atelectasis. POSTOPERATIVE DIAGNOSIS: Right upper lobe and right lower lobe atelectasis. ANESTHESIA: None. Patient was on propofol through mechanical ventilation prior to the procedure. SUBJECTIVE: This was done on an emergent basis because of hypoxemia. I used a 2.2 Ambu bronchoscope. An adapter was placed on the patient's endotracheal tube. Scope was passed in the trachea. Mucus plug was noticed in the right mainstem bronchus extending the right upper lobe, right lower lobe, sparing the right middle lobe. This was lavaged with saline and aspirated until the airways were clear. The left airway was surveyed and was clear. Patient tolerated the procedure well. Job ID: [id number]
--- NOTE | 2019-02-13 03:22 | CON ---
DATE OF CONSULTATION: 02/12/2019 This is 45 minutes critical care time. CONSULTING PHYSICIAN: Bulmaro Gurrola MD. REASON FOR CONSULTATION: Postoperative ventilator management. HISTORY OF PRESENT ILLNESS: The patient is a 58-year-old who underwent left and right foot partial amputations today. He was left intubated after surgery, because of respiratory issues. Upon seeing him, I noted his x-ray show partial right lung collapse. He is having some difficulty with oxygenation and with ventilation. Because he is intubated, he cannot give me much in the way of history, so I have obtained by reading the chart. PAST MEDICAL HISTORY: 1. Neuropathic foot ulcerations. 2. Hypertension. 3. Diabetes mellitus type 2. 4. Coronary artery disease. 5. Hyperlipidemia. PAST SURGICAL HISTORY: 1. Coronary artery bypass grafting surgery x3. 2. Hernia repair. 3. Transmetatarsal amputation of foot. 4. Amputation multiple toes, left foot. 5. Lumbar spine surgery. MEDICATIONS: Prior to admission; 1. Metformin 500 mg b.i.d. 2. Plavix 75 mg daily. 3. Lipitor 20 mg daily. 4. Metoprolol 25 mg b.i.d. ALLERGIES: WILBERT INHIBITORS. HE HAS HAD ANGIOEDEMA FROM THAT IN THE PAST. FAMILY MEDICAL HISTORY: Remarkable for hypertension. SOCIAL HISTORY: Smokes half pack per day. Occasionally drinks alcohol. No illicit drug use. REVIEW OF SYSTEMS: Cannot be obtained as he is currently intubated. PHYSICAL EXAMINATION: VITAL SIGNS: Heart rate 127, blood pressure 113/78, O2 saturation 100% on 60% oxygen, respiratory rate 20. This patient is intubated, but is arousable. HEENT: Pupils reactive, sclerae anicteric. Oropharynx clear. NECK: No adenopathy or JVD. LUNGS: Coarse rhonchi bilaterally, more so on the right than the left. CARDIOVASCULAR: S1-S2 tachycardic. ABDOMEN: Soft, obese, nontender, nondistended. EXTREMITIES: He has Wilbert bandages over both feet where he had surgery today. LABORATORY DATA: Sodium 136, potassium 3.7, chloride 103, CO2 of 21, BUN 17, creatinine 1.4, glucose 157. PH 7.28, pCO2 of 47, pO2 of 67, assist-control rate 18, tidal volume 500, PEEP 5, pressure support 10, FiO2 70%. White blood cell count 14.8, hematocrit 37.6, and platelet count 266. IMAGING: X-ray shows right upper lobe collapse, possible right middle lobe collapse. ASSESSMENT: 1. Postoperative respiratory failure. 2. Lobar collapse. 3. Diabetes mellitus. 4. History of coronary artery disease. PLAN: 1. He needs emergent bronchoscopy to relieve him of the atelectasis/collapse. 2. Re-evaluate tomorrow for the possibility of extubation. 3. I have adjusted the ventilator settings. Job ID: [id number]
[2019-02-13 04:16] LABS: #Eosinphils 0.3 thou/uL (0.0-0.7); #Lymphocytes 1.1 thou/uL (1.20-3.40); #Monocytes 0.6 thou/uL (0.11-0.59); #Neutrophils 9.5 thou/uL (1.40-6.50); %Basophils 0.1 % (0.0-1.0); %Eosinophils 2.4 % (0.0-10.0); %Lymphocytes 9.4 % (21.0-51.0); %Monocytes 5.2 % (0.0-10.0); %Neutrophils 82.9 % (42.0-75.0); Hemoglobin 10.5 g/dL (14.0-18.0); Mean Corpuscular HGB CONC 32.5 g/dL (32.0-36.0); Mean Corpuscular Hemoglobin 30.2 pg (27.0-31.0); Mean Corpuscular Volume 92.8 fL (78.0-98.0); Mean Platelet Volume 8.4 fL (7.4-10.4); Platelet Count 308 thou/uL (130-400); RBC Distribution Width 13.1 % (11.5-14.5); Red Blood Cell (RBC) Count 3.48 mill/uL (4.70-6.10); White Blood Cell (WBC) Count 11.5 thou/uL (4.8-10.8)
[2019-02-13 04:35] LABS: ALT (SGPT) 45 U/L (8-55); AST (SGOT) 12 U/L (5-34); Albumin 2.4 g/dL (3.5-5.0); Alkaline Phosphatase 97 U/L (40-110); Anion Gap 12 mmol/L (10-20); BUN (Urea Nitrogen) 17 mg/dL (8.4-25.7); Bilirubin, Total 0.5 mg/dL (0.2-1.2); Calc. Creatinine Clearance 97 mL/min (70-130); Calcium 8.2 mg/dL (7.8-10.44); Carbon Dioxide 23 mmol/L (22-29); Chloride 108 mmol/L (98-107); Estimated GFR-MDRD 52; Globulin 3.6 g/dL (2.4-3.5); Glucose 176 mg/dL (70-105); Potassium 3.8 mmol/L (3.5-5.1); Sodium 139 mmol/L (136-145)
[2019-02-13] MEDS: Clindamycin/D5W 900 MG in Premix Bag 1 BAG IVPB SCH ×3 (06:07→23:38)
[2019-02-13] MEDS: HumaLOG 300 UNITS/3 ML VIAL SC PRN ×3 (06:19→16:26)
[2019-02-13 06:47] LABS: Actual Bicarbonate (HCO3a) 19.3 mEq/L (22-28); Base Excess (BEa) -5.6 mEq/L (-2.0 to +3.0); CO2 Tension 35.9 mmHg (35.0-45.0); Calcium, Ionized 1.09 mmol/L (1.12-1.30); Carboxyhemoglobin (COHb) 0.8 gm% (0.0-3.0); Hemoglobin (Hb) 11.5 g/dL (14.0-18.0); O2 Tension (PaO2) 69.7 mmHg (> 80.0); Potassium - ABG Lab 3.73 mmol/L (3.70-5.30); pH, Arterial 7.35 (7.35-7.45)
[2019-02-13 06:48] LABS: ALV-art Gradient 241.925 (0-20); Puncture Site RRA
[2019-02-13] MEDS: fentaNYL Citrate/PF 2,000 MCG in Sodium Chloride 0.9% 60 ML IV SCH ×2 (07:54→21:34)
[2019-02-13] MEDS: metFORMIN 500 MG TAB PO SCH ×2 (08:26→17:49)
[2019-02-13] MEDS: Metoprolol Tartrate 25 MG TAB PO SCH ×2 (08:27→19:50)
--- NOTE | 2019-02-13 08:34 | RAD ---
EXAM: CHEST ONE VIEW HISTORY: On ventilator. Follow-up evaluation. COMPARISON: 02/12/2019 FINDINGS: Endotracheal tube, nasogastric tube, and left subclavian central venous catheter remain in place and unchanged in position. Postsurgical changes related to CABG are again noted. There has been improvement in aeration in the right upper lobe compared to the prior study. Parenchymal opacity is p resent in the right upper lung zone which may be related to residual atelectasis. The left lung is clear. No other interval change. IMPRESSION: 1. Improvement in aeration in the right upper lobe likely related to improvement in atelectasis. Smal l area of parenchymal opacity does persist which may represent residual atelectasis. Continued follow-up to resolution is recommended. 2. Lines and tubes stable in position.
[2019-02-13 09:00] LABS: Vancomycin, Trough 25.4 ug/mL
[2019-02-13] MEDS: Clopidogrel Bisulfate 75 MG TAB PO SCH (09:14)
[2019-02-13] MEDS: Vancomycin HCl 1.75 GM in Sodium Chloride 0.9% 500 ML IVPB SCH (10:14)
--- NOTE | 2019-02-13 11:28 | PRG ---
DATE OF SERVICE: 02/13/2019 SUBJECTIVE: Robel Black is doing well today. He is on the ventilator, however, he has been placed back on pressors because of low blood pressure. 2/2 blood cultures were positive for GPC. Heart rate 84, blood pressure 92/63. The patient is sedated on the ventilator. Gastric output 100 mL, urine output 360 mL. This morning, his white count is 11, hemoglobin 10.5. Basic metabolic profile is normal. Potassium 3.8, sodium 139, creatinine 1.4, BUN 17, GFR 52. OBJECTIVE: LUNGS: Clear to auscultation. CARDIAC: Regular rate and rhythm. No murmur or gallop. ABDOMEN: Soft. DIAGNOSTIC DATA: Morning chest x-ray revealed improvement in the right upper lobe atelectasis. Last night, Dr. Lantigua performed a bronchoscopy due to mucus plugging. The patient's past tobacco abuse certainly is contributing to his problems. ASSESSMENT AND PLAN: Known bacteremia, sepsis secondary to severe infection, diabetic foot. He is status post amputation of his great metatarsal left and debridement of his cuneiform with extensive infection tracking up the tendon sheath. Wound Care is placing the wound VAC. He is on intravenous antibiotics. He has a severe infection in his right foot also, status post drainage of large abscess, amputation of the fifth metatarsal. I will be out of town in the next few weeks. Dr. Rees will be covering and see him in my stead and review his wound periodically. Job ID: [id number]
[2019-02-13] MEDS ORDERED: Sodium Chloride 0.9% 1,000 ML IV SCH (13:15)
[2019-02-13 13:45] VITALS: BMI 33.5
[2019-02-13] MEDS: Acetaminophen 325 MG TAB PO PRN (13:46)
--- NOTE | 2019-02-13 16:07 | PRG ---
DATE OF SERVICE: 02/13/2019 SUBJECTIVE: Robel Black was given a sedation holiday this morning and apparently was not cooperative with calming down and weaning. He also had frequent coughing. He is sedated again. OBJECTIVE: VITAL SIGNS: Blood pressure 110/70, heart rate 73, respiratory rate 21, and oximetry is 97%. LUNGS: Clear anteriorly. HEART: Regular rhythm. ABDOMEN: Soft. EXTREMITIES: Lower extremities are bandaged. DIAGNOSTIC DATA: Chest radiograph shows aeration of the right upper lobe. IMPRESSION: 1. Right upper lobe atelectasis secondary to mucus plugging but is status post bronchoscopy. 2. Postop mechanical ventilation. I have decreased his ventilatory support significantly today. I suspect I will be able to allow him to awaken and consider extubation in the morning. PH is 7.28, CO2 is 47, pO2 of 67 yesterday, today 7.35, CO2 of 35, pO2 of 69. CRITICAL CARE TIME: 30 minutes. Job ID: [id number]
--- NOTE | 2019-02-13 19:31 | PDOC.HOSPP ---
- Subjective Encounter Date: 02/13/19 Encounter Time: 15:00 Subjective: pt intubated - Objective Vital Signs & Weight: Vital Signs (12 hours) Temp Pulse Resp BP Pulse Ox 02/13/19 18:25 75 93/62 02/13/19 18:00 26 H 02/13/19 16:00 99.7 F H 20 02/13/19 15:00 99.7 F H 02/13/19 14:52 82 02/13/19 14:00 22 H 02/13/19 13:26 76 91/60 02/13/19 13:00 101.1 F H 02/13/19 12:00 23 H 02/13/19 10:40 84 92/63 02/13/19 10:00 24 H 02/13/19 08:00 25 H 98 Weight Admit Weight 269 lb 3.2 oz Weight 268 lb 11.2 oz Most Recent Monitor Data Heart Rate from ECG 73 NIBP 93/62 NIBP BP-Mean 72 Respiration from ECG 22 SpO2 98 I&O: 02/12/19 02/13/19 02/14/19 06:59 06:59 06:59 Intake Total 2121.5 3181.4 Output Total 1537 900 Balance 584.5 2281.4 Result Diagrams: 02/13/19 04:05 02/13/19 04:05 Additional Labs: Accuchecks 02/13/19 02/13/19 02/13/19 16:00 10:36 06:21 POC Glucose 188 H 153 H 210 H 02/12/19 21:25 POC Glucose 202 H Hospitalist ROS - Review of Systems Other: unable to obtain - Medication Medications: Active Medications Generic Name Dose Route Start Last Admin Trade Name Freq PRN Reason Stop Dose Admin Acetaminophen 650 mg 02/13/19 13:30 02/13/19 13:46 Tylenol PO 650 mg Q8H PRN Administration Fever or Pain Clopidogrel Bisulfate 75 mg 02/12/19 09:00 02/13/19 09:14 Plavix PO 75 mg QAM VALENTINO Administration Clindamycin Phosphate/Dextrose 50 mls @ 100 mls/hr 02/11/19 23:00 02/13/19 14 :41 900 mg/ Device IVPB 50 mls 0700,1500,2300 VALENTINO Administration Piperacillin Sod/Tazobactam 100 mls @ 200 mls/hr 02/11/19 23:59 02/13/19 17: 51 Sod 4.5 gm/ Sodium Chloride IVPB 100 mls Q6HR VALENTINO Administration Lactated Ringer's 1,000 mls @ 125 mls/hr 02/12/19 18:15 02/13/19 17:48 Lactated Ringer's IV 1,000 mls .Q8H VALENTINO Administration Fentanyl Citrate 2,000 mcg/ 100 mls @ 0 mls/hr 02/12/19 18:13 02/13/19 07:54 Sodium Chloride IV 03/14/19 18:13 100 mls INF VALENTINO Administration Protocol Per Protocol Norepinephrine Bitartrate 8 mg 250 mls @ 0 mls/hr 02/12/19 19:45 02/12/19 20: 17 / Dextrose/Water IVPB 250 mls INF VALENTINO Administration Protocol Titrate Insulin Human Lispro 0 units 02/11/19 22:48 02/13/19 16:26 Humalog SC 2 unit .MODERATE SLIDING SC PRN Administration Moderate Correctional Scale Insulin Human Lispro 0 units 02/11/19 22:48 02/12/19 21:24 Humalog SC 2 unit .BEDTIME SLIDING SC PRN Administration Bedtime Correctional Scale Ketorolac Tromethamine 15 mg 02/12/19 04:44 02/12/19 11:32 Toradol IVP 02/17/19 04:45 15 mg Q6H PRN Administration Pain Metformin HCl 500 mg 02/12/19 08:00 02/13/19 17:49 Glucophage PO Not Given BID-[facility] Metoprolol Tartrate 25 mg 02/12/19 09:00 02/13/19 08:27 Lopressor PO Not Given BID VALENTINO Propofol 1,000 mg 02/12/19 18:13 02/13/19 14:41 Diprivan IV 03/14/19 18:13 1,000 mg INF PRN Administration TO ACHIEVE GOAL RASS Protocol Sodium Chloride 10 ml 02/12/19 09:00 02/13/19 09:21 Flush - Normal Saline IVF 10 ml Q12HR VALENTINO Administration - Exam Heart: negative: RRR, no murmur, no gallops, no rubs, normal peripheral pulses, irregular, diminshed peripheral pulses, murmur present, II/IV, III/IV Respiratory: rhonchi, wheezes Gastrointestinal: negative: soft, non-tender, non-distended, normal bowel sounds , no palpable masses, no hepatomegaly, no splenomegaly, no bruit, no guarding, no rigidity, tender to palpation, distended, diminished bowl sounds, voluntary guarding Extremities: negative: no cyanosis, no clubbing, no edema, 1+ LE edema, 2+ LE edema, clubbing Hosp A/P (1) Acute respiratory failure with hypoxia Code(s): J96.01 - ACUTE RESPIRATORY FAILURE WITH HYPOXIA Status: Acute (2) Sepsis Code(s): A41.9 - SEPSIS, UNSPECIFIED ORGANISM Status: Acute (3) Acute osteomyelitis of metatarsal bone of left foot Code(s): M86.172 - OTHER ACUTE OSTEOMYELITIS, LEFT ANKLE AND FOOT Status: Acute (4) Obesity (BMI 30.0-34.9) Code(s): E66.9 - OBESITY, UNSPECIFIED Status: Chronic - Plan s/p bronchoscopy due to mucus plugging. Pt underwent I&D of both feet and wound vac placed. will continue abx for now. he is still on levophed drip. will continue to monitor renal function. He is on iv vanco/clinda and zosyn.
[2019-02-13] MEDS: Pantoprazole 40 MG VIAL IVP SCH (20:16)
[2019-02-13 20:54] LABS: Vancomycin, Random 15.2 ug/mL (See Comment)
[2019-02-13] MEDS: Vancomycin HCl 1.25 GM in Sodium Chloride 0.9% 250 ML 250 ML IVPB SCH (22:44)
[2019-02-14] MEDS: Acetaminophen 325 MG TAB PO PRN (00:02)
[2019-02-14] MEDS: Piperacillin/Tazobactam 4.5 GM in Sodium Chloride 0.9% 100 ML IVPB SCH ×3 (00:02→11:52)
[2019-02-14] MEDS: Lactated Ringer's 1,000 ML IV SCH ×3 (03:32→18:48)
[2019-02-14 04:41] LABS: #Eosinphils 0.3 thou/uL (0.0-0.7); #Lymphocytes 0.8 thou/uL (1.20-3.40); #Monocytes 0.5 thou/uL (0.11-0.59); %Basophils 0.3 % (0.0-1.0); %Eosinophils 3.6 % (0.0-10.0); %Lymphocytes 10.6 % (21.0-51.0); %Neutrophils 78.6 % (42.0-75.0); Mean Corpuscular HGB CONC 32.9 g/dL (32.0-36.0); Mean Corpuscular Hemoglobin 30.5 pg (27.0-31.0); Mean Corpuscular Volume 92.8 fL (78.0-98.0); Mean Platelet Volume 8.6 fL (7.4-10.4); Platelet Count 296 thou/uL (130-400); RBC Distribution Width 13.5 % (11.5-14.5); Red Blood Cell (RBC) Count 3.29 mill/uL (4.70-6.10); White Blood Cell (WBC) Count 7.7 thou/uL (4.8-10.8)
[2019-02-14 05:09] LABS: ALT (SGPT) 35 U/L (8-55); AST (SGOT) 10 U/L (5-34); Albumin 2.3 g/dL (3.5-5.0); Alkaline Phosphatase 94 U/L (40-110); Anion Gap 14 mmol/L (10-20); BUN (Urea Nitrogen) 16 mg/dL (8.4-25.7); Bilirubin, Total 0.6 mg/dL (0.2-1.2); Calc. Creatinine Clearance 80 mL/min (70-130); Calcium 7.5 mg/dL (7.8-10.44); Carbon Dioxide 21 mmol/L (22-29); Chloride 109 mmol/L (98-107); Estimated GFR-MDRD 41; Globulin 3.6 g/dL (2.4-3.5); Glucose 121 mg/dL (70-105); Potassium 3.8 mmol/L (3.5-5.1); Protein, Total 5.9 g/dL (6.0-8.3); Sodium 140 mmol/L (136-145)
[2019-02-14 07:08] LABS: Actual Bicarbonate (HCO3a) 20.1 mEq/L (22-28); Base Excess (BEa) -4.6 mEq/L (-2.0 to +3.0); CO2 Tension 35.7 mmHg (35.0-45.0); Calcium, Ionized 1.06 mmol/L (1.12-1.30); Carboxyhemoglobin (COHb) 1.1 gm% (0.0-3.0); Hemoglobin (Hb) 10.9 g/dL (14.0-18.0); O2 Tension (PaO2) 76.4 mmHg (> 80.0); pH, Arterial 7.37 (7.35-7.45)
[2019-02-14 07:11] LABS: ALV-art Gradient 235.475 (0-20); Puncture Site RRA
[2019-02-14] MEDS: metFORMIN 500 MG TAB PO SCH ×2 (08:00→17:07)
[2019-02-14] MEDS: Metoprolol Tartrate 25 MG TAB PO SCH ×2 (09:00→21:07)
[2019-02-14] MEDS: Clindamycin/D5W 900 MG in Premix Bag 1 BAG IVPB SCH (09:31)
[2019-02-14] MEDS: Clopidogrel Bisulfate 75 MG TAB PO SCH (10:02)
[2019-02-14] MEDS: Vancomycin HCl 1.25 GM in Sodium Chloride 0.9% 250 ML 250 ML IVPB SCH ×2 (10:04→22:41)
[2019-02-14] MEDS: Ketorolac Tromethamine 30 MG/ML VIAL IVP PRN (11:03)
[2019-02-14] MEDS: Morphine 4 MG/ML VIAL SLOW IVP PRN ×2 (13:30→17:44)
[2019-02-14] MEDS: cefTRIAXone\\ROCEPHIN 2 GM in Sodium Chloride 0.9% 100 ML IVPB SCH (13:44)
[2019-02-14] MEDS ORDERED: metroNIDAZOLE 250 MG in Admixture Fee 2 EACH IVPB SCH (14:00)
--- NOTE | 2019-02-14 14:13 | CON ---
DATE OF CONSULTATION: 02/14/2019 REASON FOR CONSULTATION: Foot abscesses, osteomyelitis, and bacteremia. HISTORY OF PRESENT ILLNESS: A 58-year-old, whom I had seen in the past in 2016, when he presented with a history of type 2 diabetes with neuropathy, peripheral vascular disease, coronary artery disease, and partial amputations of the right foot in 2014. In 2016, he presented with evidence of peripheral vascular disease status post femoral-popliteal bypass and he developed area of involvement of the first metatarsophalangeal joint with evidence of sesamoid osteo. The patient was given oral antimicrobial therapy after partial amputation. In May 2017, he presented with left foot pain and underwent amputation of the left second toe and metatarsal. He was discharged on oral antimicrobial therapy as well as including Cipro and Bactrim. Subsequently in August 2018, he came again with the similar complications with this time bilateral diabetic foot ulcers and he had debridement of a callus in the left foot and also underwent amputation of the right foot third, fourth, and fifth toes. He was discharged on oral Bactrim and ciprofloxacin again. No samples for cultures were submitted at this time. In November 2018, he was readmitted again with a left foot complications and neuropathic ulcer. Dr. Gurrola saw the patient and did an I and D at the bedside. He was discharged off antimicrobial therapy. No cultures were taken again. Now, he is admitted again two months later with malodorous discharge from the left foot, redness, generalized weakness, and general malaise. On admission, the patient had also noticed a fever. The initial vital signs with BP 120/80, pulse 130, respiratory rate 24, temperature 100.1, and O2 saturation 93 on room air. The findings on the physical examination were particularly remarkable for the lower extremities with bilateral erythema in the feet, edema of feet, diabetic ulcer with foul odor. The remainder of the exam was not particularly remarkable. The patient had a picture taking of the left foot, which showed the MPJ amputation site with a round-shaped ulcer about 2 cm with red granulation tissue at the base and erythema, which is somewhat mild erythema surrounding the area. Initial labs showed white cell count 15.6, hemoglobin 13, platelets 290 with 83% neutrophils. A pH was 7.28, pCO2 was 47, and pO2 was 67. Sodium 132, creatinine 1.16, glucose 188, transaminases normal, alkaline phosphatase 120, and albumin 3.1. CRP was 30. Urinalysis with greater than 50 wbc's. The patient has had 2 sets of blood cultures drawn on admission with Streptococcus anginosus and the left foot had methicillin-resistant Staphylococcus aureus identified as well. Because of sepsis, the patient was admitted to the ICU and he had to be intubated postoperatively for a few hours and then, he was extubated. Dr. Gurrola performed an operative procedure day before yesterday, which consisted of incision and drainage of bilateral foot abscesses; debridement of skin, subcutaneous tissue, muscle, and tendon; resection of the right great fifth metatarsal and complete resection of the left first metatarsal; debridement of the cuneiform; and wound VAC was placed on the left side. Currently, Mr. Black is awake. He knows he is in the hospital and more or less the year, but could not tell me the day. He does not recall the events immediately preceding and following the current admission. He denies any headaches. No visual symptoms except for the usual blurriness. No sore throat, odynophagia, or dysphagia, maybe mild dysphagia. No dyspnea or chest pain. No abdominal pain. Still has a Gonzales catheter. Minimal tenderness in the lower extremities. PAST MEDICAL HISTORY: Type 2 diabetes, neuropathy, and multiple complications, which have been responsible for pretty much all the admissions to [facility] for the past few years. Hypertension and coronary artery disease. PAST SURGICAL HISTORY: Includes bypass graft surgery. He did have a femoral-popliteal bypass in the past, peripheral vascular disease, multiple toe amputations leading to complete loss of all the toes on the left side, the most of the toes in the right. ALLERGIES: MALCOM INHIBITORS. FAMILY HISTORY: Hypertension. SOCIAL HISTORY: . Still smoking half a pack a day. Drinks occasionally. MEDICATIONS: Currently, he is on; 1. Tylenol. 2. Clindamycin. 3. Plavix. 4. Dextrose. 5. Fentanyl. 6. Glucagon. 7. Humalog insulin. 8. Zosyn. 9. Vancomycin. PHYSICAL EXAMINATION: VITAL SIGNS: T-max 101.1 and BP 130/80. He is not on pressors. Respiratory rate 29, O2 supplementation. SKIN: Shows the area of amputation left side, appears fresh operative site without inflammatory change. The patient has a peripheral IV access. Gonzales catheter in place. HEENT: ET tube has been removed. Ocular movements conjugate. Sclerae white. Pupils are equal. Conjunctivae normal. Oral cavity with quite a few teeth in place with marked decay and gum disease. NECK: Supple. No jugular venous distention. LUNGS: With a few expiratory wheezes and rhonchi bilaterally, symmetrically distributed. No crackles. HEART: S1 and S2 with a soft aortic murmur. No S3 or S4. Regular rate. ABDOMEN: Soft, not distended or tender. No ascites. No bladder distention. No genital abnormalities except for Gonzales catheter. EXTREMITIES: No joint inflammatory activity outside the involved areas. Diminished dorsalis pedis pulses. Cap refill appears to be normal. He is diffusely weak, but it seems to be nonfocal. NEUROLOGIC: He is bit confused, but he knows his name, the hospital's name, and knows the year, but not the month or the day. Speech is little bit garbled. Recollection is somewhat limited with antegrade and retrograde amnesia. LABORATORY DATA: White cell count currently at 7.7, hemoglobin 10, and platelets 296. Sodium 132, creatinine 1.16, transaminases normal, and albumin 3.1. Urinalysis as noted before. Culture as noted before. ASSESSMENT AND PLAN: Type 2 diabetes, neuropathy with multiple complications related to the above lower extremities with various hospital admissions for management, which have resulted in amputation pretty much of all the toes on the left side and right side. At this time, he presents with sepsis with bacteremia due to strep anginosus, his infectious complications in the feet now are polymicrobial and endocarditis is less likely. Other sites of involvement are not apparent at this time. I will have to continue monitoring, particularly lungs, spine, and other joints. At this point, we will transition him to Rocephin and vancomycin. Discontinue remainder antimicrobials. May add some Flagyl until anaerobic cultures are finalized. Duration of therapy will probably be in the order of 2 to 4 weeks. Does have some element of vascular disease and at risk for recrudescence of inflammatory process or the next time around, probably is going to end up with a BKA or on the side of overtreating at this time. Job ID: [id number]
[2019-02-14] MEDS: metroNIDAZOLE 500 MG in Premix Bag 1 BAG IVPB SCH ×2 (14:54→21:02)
--- NOTE | 2019-02-14 19:44 | PRG ---
DATE OF SERVICE: 02/14/2019 SUBJECTIVE: Mr. Black was evaluated this morning. He was awake and comfortable and cooperative, mechanical ventilation with a spontaneous breathing trial. He did not have excessive secretions. He was not coughing. He passed a leak test. His minute volume was about 12 L a minute. OBJECTIVE: VITAL SIGNS: Heart rate is 103, respiratory rate is in the 20s oximetry in the high 90s, blood pressure is 156/88 this evening. LUNGS: Clear. HEART: Regular rhythm. ABDOMEN: Soft. EXTREMITIES: Without any edema. He still had bandages on both feet. LABORATORY DATA: White count 7.7, hemoglobin 10.0, platelets 296. Sodium 140, potassium 3.8, chloride 109, bicarb 21, BUN 16, creatinine 1.7. IMPRESSION: 1. Postop mechanical ventilation secondary to mainly delayed clearance of anesthesia. 2. Peripheral vascular disease, status post amputation of toes on both lower extremities. 3. Acute on chronic kidney disease. 4. Diabetes. 5. Hypoalbuminemia with significant proteinuria on urinalysis. PLAN: Continue supportive care in the ICU. He was extubated successfully. He has done well postextubation. He probably can be transferred out of Critical Care tomorrow. Critical care time is 35 minutes. Job ID: [id number] MTDD
[2019-02-14] MEDS ORDERED: Lorazepam 2 MG/ML VIAL SLOW IVP PRN (20:38)
[2019-02-14] MEDS: Pantoprazole 40 MG VIAL IVP SCH (21:02)
[2019-02-14 22:02] LABS: Actual Bicarbonate (HCO3a) 18.7 mEq/L (22-28); Base Excess (BEa) -4.7 mEq/L (-2.0 to +3.0); CO2 Tension 29.4 mmHg (35.0-45.0); Calcium, Ionized 1.06 mmol/L (1.12-1.30); Carboxyhemoglobin (COHb) 0.7 gm% (0.0-3.0); Hemoglobin (Hb) 11.3 g/dL (14.0-18.0); Potassium - ABG Lab 3.73 mmol/L (3.70-5.30); pH, Arterial 7.42 (7.35-7.45)
[2019-02-14 22:06] LABS: O2 Tension (PaO2) 58.4 mmHg (> 80.0); Puncture Site RBR
[2019-02-15] MEDS: Acetaminophen 325 MG TAB PO PRN (00:14)
[2019-02-15] MEDS: metroNIDAZOLE 500 MG in Premix Bag 1 BAG IVPB SCH ×3 (05:00→21:20)
[2019-02-15] MEDS: Lactated Ringer's 1,000 ML IV SCH ×2 (05:01→22:46)
[2019-02-15] MEDS: metFORMIN 500 MG TAB PO SCH (08:35)
[2019-02-15] MEDS: Metoprolol Tartrate 25 MG TAB PO SCH (08:35)
[2019-02-15] MEDS: Clopidogrel Bisulfate 75 MG TAB PO SCH (08:35)
--- NOTE | 2019-02-15 09:18 | RAD ---
PORTABLE CHEST: COMPARISON: 02/13/2019 study. HISTORY: Shortness of breath. FINDINGS: Heart size appears enlarged with postop sternotomy changes. Endotracheal tube has been removed. Lef t subclavian line remains in position. There has been an improvement to some of the parenchymal lung changes. Specifically, the changes in the right upper lobe have resolved. IMPRESSION: Resolution of the right upper lobe parenchymal changes. POS: TPC
[2019-02-15] MEDS: Morphine 4 MG/ML VIAL SLOW IVP PRN ×3 (10:13→21:28)
[2019-02-15] MEDS: Vancomycin HCl 1.25 GM in Sodium Chloride 0.9% 250 ML 250 ML IVPB SCH (10:13)
[2019-02-15] MEDS: HumaLOG 300 UNITS/3 ML VIAL SC PRN (11:49)
[2019-02-15] MEDS: cefTRIAXone\\ROCEPHIN 2 GM in Sodium Chloride 0.9% 100 ML IVPB SCH (12:59)
--- NOTE | 2019-02-15 13:27 | PDOC.HOSPP ---
- Subjective Encounter Date: 02/14/19 Encounter Time: 15:00 Subjective: pt was extubated this am - Objective Vital Signs & Weight: Vital Signs (12 hours) Temp Pulse Resp Pulse Ox 02/15/19 12:00 98.0 F 02/15/19 07:28 95 02/15/19 07:00 97.8 F 02/15/19 06:39 99 02/15/19 06:37 85 18 99 02/15/19 04:00 98.1 F 98 02/15/19 02:07 88 Weight Admit Weight 269 lb 3.2 oz Weight 268 lb 11.2 oz Most Recent Monitor Data Heart Rate from ECG 93 NIBP 169/90 NIBP BP-Mean 116 Respiration from ECG 23 SpO2 93 I&O: 02/14/19 02/15/19 02/16/19 06:59 06:59 06:59 Intake Total 5315.3 4176.0 2840 Output Total 1725 1880 1170 Balance 3590.3 2296.0 1670 Result Diagrams: 02/14/19 04:30 02/14/19 04:30 Additional Labs: Accuchecks 02/15/19 02/15/19 02/14/19 11:22 06:03 21:15 POC Glucose 164 H 118 H 122 H 02/14/19 16:18 POC Glucose 121 H Hospitalist ROS - Review of Systems Respiratory: denies: cough, dry, shortness of breath, hemoptysis, SOB with excertion, pleuritic pain, sputum, wheezing, other Cardiovascular: denies: chest pain, palpitations, orthopnea, paroxysmal noc. dyspnea, edema, light headedness, other Gastrointestinal: denies: nausea, vomiting, abdominal pain, diarrhea, constipation, melena, hematochezia, other - Medication Medications: Active Medications Generic Name Dose Route Start Last Admin Trade Name Freq PRN Reason Stop Dose Admin Acetaminophen 650 mg 02/13/19 13:30 02/15/19 00:14 Tylenol PO 650 mg Q8H PRN Administration Fever or MILD Pain Albuterol/Ipratropium 3 ml 02/14/19 19:00 02/15/19 06:37 Duoneb NEB 3 ml [id number] VALENTINO Administration Clopidogrel Bisulfate 75 mg 02/12/19 09:00 02/15/19 08:35 Plavix PO 75 mg QAM VALENTINO Administration Lactated Ringer's 1,000 mls @ 75 mls/hr 02/12/19 18:15 02/15/19 05:01 Lactated Ringer's IV 1,000 mls .[id number] VALENTINO Administration Norepinephrine Bitartrate 8 mg 250 mls @ 0 mls/hr 02/12/19 19:45 02/12/19 20: 17 / Dextrose/Water IVPB 250 mls INF VALENTINO Administration Protocol Titrate Ceftriaxone Sodium 2 gm/ 100 mls @ 200 mls/hr 02/14/19 13:00 02/15/19 12:59 Sodium Chloride IVPB 100 mls Q24HR VALENTINO Administration Metronidazole 500 mg/ Device 100 mls @ 100 mls/hr 02/14/19 14:00 02/15/19 05: 00 IVPB 100 mls Q8HR VALENTINO Administration Insulin Human Lispro 0 units 02/11/19 22:48 02/15/19 11:49 Humalog SC 2 unit .MODERATE SLIDING SC PRN Administration Moderate Correctional Scale Insulin Human Lispro 0 units 02/11/19 22:48 02/12/19 21:24 Humalog SC 2 unit .BEDTIME SLIDING SC PRN Administration Bedtime Correctional Scale Ketorolac Tromethamine 15 mg 02/12/19 04:44 02/14/19 11:03 Toradol IVP 02/17/19 04:45 15 mg Q6H PRN Administration Pain Lorazepam 1 mg 02/14/19 20:38 02/14/19 20:59 Ativan SLOW IVP 1 mg Q6H PRN Administration Anxiety/Agitation Metformin HCl 500 mg 02/12/19 08:00 02/15/19 08:35 Glucophage PO 500 mg BID-WM VALENTINO Administration Metoprolol Tartrate 25 mg 02/12/19 09:00 02/15/19 08:35 Lopressor PO 25 mg BID VALENTINO Administration Morphine Sulfate 4 mg 02/14/19 11:45 02/15/19 10:13 Morphine SLOW IVP 4 mg Q4H PRN Administration Moderate to Severe Pain (4-10) Propofol 1,000 mg 02/12/19 18:13 02/13/19 23:44 Diprivan IV 03/14/19 18:13 1,000 mg INF PRN Administration TO ACHIEVE GOAL RASS Protocol Sodium Chloride 10 ml 02/12/19 09:00 02/15/19 08:35 Flush - Normal Saline IVF 10 ml Q12HR VALENTINO Administration - Exam Neck: negative: supple, symmetric, no JVD, no thyromegaly, no lymphadenopathy, no carotid bruit, JVD Heart: negative: RRR, no murmur, no gallops, no rubs, normal peripheral pulses, irregular, diminshed peripheral pulses, murmur present, II/IV, III/IV Respiratory: rhonchi, wheezes Hosp A/P (1) Acute respiratory failure with hypoxia Code(s): J96.01 - ACUTE RESPIRATORY FAILURE WITH HYPOXIA Status: Acute (2) Sepsis Code(s): A41.9 - SEPSIS, UNSPECIFIED ORGANISM Status: Acute (3) Acute osteomyelitis of metatarsal bone of left foot Code(s): M86.172 - OTHER ACUTE OSTEOMYELITIS, LEFT ANKLE AND FOOT Status: Acute (4) Obesity (BMI 30.0-34.9) Code(s): E66.9 - OBESITY, UNSPECIFIED Status: Chronic - Plan s/p bronchoscopy due to mucus plugging. Pt underwent I&D of both feet and wound vac placed. will continue abx for now. he is still on levophed drip. will continue to monitor renal function. He is on iv vanco/clinda and zosyn. 02/14 pt extubated this am, will continue current meds. His wound cx indicated staph aureus.
--- NOTE | 2019-02-15 13:33 | PDOC.HOSPP ---
- Subjective Encounter Date: 02/15/19 Encounter Time: 14:00 Subjective: pt up in bed no complains - Objective Vital Signs & Weight: Vital Signs (12 hours) Temp Pulse Pulse Pulse Resp BP BP 02/15/19 12:00 98.0 F 02/15/19 09:16 98 130 H 150/86 H 103/77 02/15/19 07:28 02/15/19 07:00 97.8 F 02/15/19 06:39 02/15/19 06:37 85 18 02/15/19 04:00 98.1 F 02/15/19 02:07 88 Pulse Ox Pulse Ox Pulse Ox 02/15/19 12:00 02/15/19 09:16 95 94 L 02/15/19 07:28 95 02/15/19 07:00 02/15/19 06:39 99 02/15/19 06:37 99 02/15/19 04:00 98 02/15/19 02:07 Weight Admit Weight 269 lb 3.2 oz Weight 268 lb 11.2 oz Most Recent Monitor Data Heart Rate from ECG 93 NIBP 169/90 NIBP BP-Mean 116 Respiration from ECG 23 SpO2 93 I&O: 02/14/19 02/15/19 02/16/19 06:59 06:59 06:59 Intake Total 5315.3 4176.0 2840 Output Total 1725 1880 1170 Balance 3590.3 2296.0 1670 Result Diagrams: 02/14/19 04:30 02/14/19 04:30 Additional Labs: Accuchecks 02/15/19 02/15/19 02/14/19 11:22 06:03 21:15 POC Glucose 164 H 118 H 122 H 02/14/19 16:18 POC Glucose 121 H Hospitalist ROS - Review of Systems Cardiovascular: denies: chest pain, palpitations, orthopnea, paroxysmal noc. dyspnea, edema, light headedness, other Gastrointestinal: denies: nausea, vomiting, abdominal pain, diarrhea, constipation, melena, hematochezia, other - Medication Medications: Active Medications Generic Name Dose Route Start Last Admin Trade Name Freq PRN Reason Stop Dose Admin Acetaminophen 650 mg 02/13/19 13:30 02/15/19 00:14 Tylenol PO 650 mg Q8H PRN Administration Fever or MILD Pain Albuterol/Ipratropium 3 ml 02/14/19 19:00 02/15/19 06:37 Duoneb NEB 3 ml [id number] VALENTINO Administration Clopidogrel Bisulfate 75 mg 02/12/19 09:00 02/15/19 08:35 Plavix PO 75 mg QAM VALENTINO Administration Lactated Ringer's 1,000 mls @ 75 mls/hr 02/12/19 18:15 02/15/19 05:01 Lactated Ringer's IV 1,000 mls .[id number] VALENTINO Administration Norepinephrine Bitartrate 8 mg 250 mls @ 0 mls/hr 02/12/19 19:45 02/12/19 20: 17 / Dextrose/Water IVPB 250 mls INF VALENTINO Administration Protocol Titrate Ceftriaxone Sodium 2 gm/ 100 mls @ 200 mls/hr 02/14/19 13:00 02/15/19 12:59 Sodium Chloride IVPB 100 mls Q24HR VALENTINO Administration Metronidazole 500 mg/ Device 100 mls @ 100 mls/hr 02/14/19 14:00 02/15/19 05: 00 IVPB 100 mls Q8HR VALENTINO Administration Insulin Human Lispro 0 units 02/11/19 22:48 02/15/19 11:49 Humalog SC 2 unit .MODERATE SLIDING SC PRN Administration Moderate Correctional Scale Insulin Human Lispro 0 units 02/11/19 22:48 02/12/19 21:24 Humalog SC 2 unit .BEDTIME SLIDING SC PRN Administration Bedtime Correctional Scale Lorazepam 1 mg 02/14/19 20:38 02/14/19 20:59 Ativan SLOW IVP 1 mg Q6H PRN Administration Anxiety/Agitation Metformin HCl 500 mg 02/12/19 08:00 02/15/19 08:35 Glucophage PO 500 mg BID-WM VALENTINO Administration Metoprolol Tartrate 25 mg 02/12/19 09:00 02/15/19 08:35 Lopressor PO 25 mg BID VALENTINO Administration Morphine Sulfate 4 mg 02/14/19 11:45 02/15/19 10:13 Morphine SLOW IVP 4 mg Q4H PRN Administration Moderate to Severe Pain (4-10) Propofol 1,000 mg 02/12/19 18:13 02/13/19 23:44 Diprivan IV 03/14/19 18:13 1,000 mg INF PRN Administration TO ACHIEVE GOAL RASS Protocol Sodium Chloride 10 ml 02/12/19 09:00 02/15/19 08:35 Flush - Normal Saline IVF 10 ml Q12HR VALENTINO Administration - Exam Neck: negative: supple, symmetric, no JVD, no thyromegaly, no lymphadenopathy, no carotid bruit, JVD Heart: negative: RRR, no murmur, no gallops, no rubs, normal peripheral pulses, irregular, diminshed peripheral pulses, murmur present, II/IV, III/IV Respiratory: rhonchi Hosp A/P (1) Acute respiratory failure with hypoxia Code(s): J96.01 - ACUTE RESPIRATORY FAILURE WITH HYPOXIA Status: Acute (2) Sepsis Code(s): A41.9 - SEPSIS, UNSPECIFIED ORGANISM Status: Acute (3) Acute osteomyelitis of metatarsal bone of left foot Code(s): M86.172 - OTHER ACUTE OSTEOMYELITIS, LEFT ANKLE AND FOOT Status: Acute (4) Obesity (BMI 30.0-34.9) Code(s): E66.9 - OBESITY, UNSPECIFIED Status: Chronic (5) MAREK (acute kidney injury) Code(s): N17.9 - ACUTE KIDNEY FAILURE, UNSPECIFIED Status: Acute - Plan s/p bronchoscopy due to mucus plugging. Pt underwent I&D of both feet and wound vac placed. will continue abx for now. he is still on levophed drip. will continue to monitor renal function. He is on iv vanco/clinda and zosyn. 02/14 pt extubated this am, will continue current meds. His wound cx indicated staph aureus. 02/15 pt's creatinine is worsening, will stop toradol and hold metformin for now. His hbgalc is 9 will start on low dose insulin. He will need MALCOM but due to his worsening renal function will hold off for now. will add increase his bb.
[2019-02-15] MEDS ORDERED: hydrALAZINE 25 MG TAB PO SCH (13:45)
[2019-02-15] MEDS ORDERED: Metoprolol Tartrate 25 MG TAB PO SCH (13:45)
--- NOTE | 2019-02-15 15:03 | PRG ---
DATE OF SERVICE: 02/15/2019 SUBJECTIVE: Robel Black says he is doing well. He sat on the side of the bed. He had no complaints. OBJECTIVE: VITAL SIGNS: Heart rate is 92, respiratory rate 22, he is on 3 L with a sat of 96% to 98%, and blood pressure 158/94. LUNGS: Remarkable for end-expiratory wheezes. He has never been told he had COPD or asthma and has been a smoker in the past. Yesterday, he became bronchospastic in the afternoon and improved dramatically with the addition of nebulizer treatments. HEART: Regular rhythm. ABDOMEN: Soft and nontender. EXTREMITIES: Bandaged. LABORATORY DATA: There is no new lab other than blood glucoses. IMPRESSION: Reactive airways, likely associated with retained secretions associated with mechanical ventilation. We will continue with nebulized treatments. He is stable in my opinion, move out of Critical Care Unit. Job ID: [id number]
--- NOTE | 2019-02-15 16:29 | PDOC.HOSPP ---
- Subjective Encounter Date: 02/15/19 Encounter Time: 14:00 Subjective: pt up in bed no complains - Objective Vital Signs & Weight: Vital Signs (12 hours) Temp Pulse Pulse Pulse Resp BP BP 02/15/19 14:45 92 158/94 H 02/15/19 13:57 92 22 H 02/15/19 12:00 98.0 F 02/15/19 09:16 98 130 H 150/86 H 02/15/19 07:28 02/15/19 07:00 97.8 F 02/15/19 06:39 02/15/19 06:37 85 18 BP Pulse Ox Pulse Ox Pulse Ox 02/15/19 14:45 02/15/19 13:57 02/15/19 12:00 02/15/19 09:16 103/77 95 94 L 02/15/19 07:28 95 02/15/19 07:00 02/15/19 06:39 99 02/15/19 06:37 99 Weight Admit Weight 269 lb 3.2 oz Weight 268 lb 11.2 oz Most Recent Monitor Data Heart Rate from ECG 91 NIBP 169/84 NIBP BP-Mean 112 Respiration from ECG 17 SpO2 91 I&O: 02/14/19 02/15/19 02/16/19 06:59 06:59 06:59 Intake Total 5315.3 4176.0 2840 Output Total 1725 1880 1430 Balance 3590.3 2296.0 1410 Result Diagrams: 02/14/19 04:30 02/14/19 04:30 Additional Labs: Accuchecks 02/15/19 02/15/19 02/14/19 11:22 06:03 21:15 POC Glucose 164 H 118 H 122 H 02/14/19 16:18 POC Glucose 121 H Hospitalist ROS - Review of Systems Respiratory: reports: shortness of breath Cardiovascular: denies: chest pain, palpitations, orthopnea, paroxysmal noc. dyspnea, edema, light headedness, other Gastrointestinal: denies: nausea, vomiting, abdominal pain, diarrhea, constipation, melena, hematochezia, other - Medication Medications: Active Medications Generic Name Dose Route Start Last Admin Trade Name Freq PRN Reason Stop Dose Admin Acetaminophen 650 mg 02/13/19 13:30 02/15/19 00:14 Tylenol PO 650 mg Q8H PRN Administration Fever or MILD Pain Albuterol/Ipratropium 3 ml 02/14/19 19:00 02/15/19 13:57 Duoneb NEB 3 ml [id number] VALENTINO Administration Clopidogrel Bisulfate 75 mg 02/12/19 09:00 02/15/19 08:35 Plavix PO 75 mg QAM VALENTINO Administration Lactated Ringer's 1,000 mls @ 75 mls/hr 02/12/19 18:15 02/15/19 05:01 Lactated Ringer's IV 1,000 mls .[id number] VALENTINO Administration Norepinephrine Bitartrate 8 mg 250 mls @ 0 mls/hr 02/12/19 19:45 02/12/19 20: 17 / Dextrose/Water IVPB 250 mls INF VALENTINO Administration Protocol Titrate Ceftriaxone Sodium 2 gm/ 100 mls @ 200 mls/hr 02/14/19 13:00 02/15/19 12:59 Sodium Chloride IVPB 100 mls Q24HR VALENTINO Administration Metronidazole 500 mg/ Device 100 mls @ 100 mls/hr 02/14/19 14:00 02/15/19 14: 45 IVPB 100 mls Q8HR VALENTINO Administration Insulin Human Lispro 0 units 02/11/19 22:48 02/15/19 11:49 Humalog SC 2 unit .MODERATE SLIDING SC PRN Administration Moderate Correctional Scale Insulin Human Lispro 0 units 02/11/19 22:48 02/12/19 21:24 Humalog SC 2 unit .BEDTIME SLIDING SC PRN Administration Bedtime Correctional Scale Lorazepam 1 mg 02/14/19 20:38 02/14/19 20:59 Ativan SLOW IVP 1 mg Q6H PRN Administration Anxiety/Agitation Metformin HCl 500 mg 02/12/19 08:00 02/15/19 08:35 Glucophage PO 500 mg BID-WM VALENTINO Administration Morphine Sulfate 4 mg 02/14/19 11:45 02/15/19 14:47 Morphine SLOW IVP 4 mg Q4H PRN Administration Moderate to Severe Pain (4-10) Propofol 1,000 mg 02/12/19 18:13 02/13/19 23:44 Diprivan IV 03/14/19 18:13 1,000 mg INF PRN Administration TO ACHIEVE GOAL RASS Protocol Sodium Chloride 10 ml 02/12/19 09:00 02/15/19 08:35 Flush - Normal Saline IVF 10 ml Q12HR VALENTINO Administration - Exam Neck: negative: supple, symmetric, no JVD, no thyromegaly, no lymphadenopathy, no carotid bruit, JVD Heart: negative: RRR, no murmur, no gallops, no rubs, normal peripheral pulses, irregular, diminshed peripheral pulses, murmur present, II/IV, III/IV Respiratory: rhonchi Hosp A/P (1) Acute respiratory failure with hypoxia Code(s): J96.01 - ACUTE RESPIRATORY FAILURE WITH HYPOXIA Status: Acute (2) Sepsis Code(s): A41.9 - SEPSIS, UNSPECIFIED ORGANISM Status: Acute (3) Acute osteomyelitis of metatarsal bone of left foot Code(s): M86.172 - OTHER ACUTE OSTEOMYELITIS, LEFT ANKLE AND FOOT Status: Acute (4) Obesity (BMI 30.0-34.9) Code(s): E66.9 - OBESITY, UNSPECIFIED Status: Chronic (5) MAREK (acute kidney injury) Code(s): N17.9 - ACUTE KIDNEY FAILURE, UNSPECIFIED Status: Acute - Plan s/p bronchoscopy due to mucus plugging. Pt underwent I&D of both feet and wound vac placed. will continue abx for now. he is still on levophed drip. will continue to monitor renal function. He is on iv vanco/clinda and zosyn. 02/14 pt extubated this am, will continue current meds. His wound cx indicated staph aureus. 02/15 pt's creatinine is worsening, will stop toradol and hold metformin for now. His hbgalc is 9 will start on low dose insulin. He will need MALCOM but due to his worsening renal function will hold off for now. will add increase his bb.
--- NOTE | 2019-02-15 17:14 | PRG ---
DATE OF SERVICE: 02/15/2019 SUBJECTIVE: The patient is not very interested in talking today, a little bit depressed I think. He is having some loose stools in large amount, but no abdominal cramps, not much pain. No dyspnea. OBJECTIVE: VITAL SIGNS: Still having some fever at 101.1 earlier today, but has been afebrile since. HEENT: Ocular movements are conjugate. LUNGS: Symmetric air entry. HEART: S1 and S2, regular rate. ABDOMEN: Soft. No bladder distention. Does not have Gonzales catheter which was removed this morning. EXTREMITIES: Feet are dressed. Negative pressure dressing on the left side. Wound care looked at it today and per nurse, looked okay. LABORATORY DATA: The creatinine is a little bit up to 1.7. Liver profile normal. Albumin 2.3. White cell count is down to 7.7, hemoglobin 10.0, and platelets 296. Microbiology with MRSA from the foot, strep intermedius from blood cultures. Currently, on Rocephin, Flagyl, and vancomycin, to be continued. The pathology shows acute osteomyelitis and probably, he will need at least 4 weeks of treatment, maybe 6 since he is at high risk for relapse. Job ID: [id number]
[2019-02-15] MEDS: Metoprolol Tartrate 50 MG TAB PO SCH (21:19)
[2019-02-15] MEDS: hydrALAZINE 25 MG TAB PO SCH (21:19)
[2019-02-15] MEDS ORDERED: Vancomycin HCl 1.25 GM in Sodium Chloride 0.9% 250 ML 250 ML IVPB SCH (22:00)
[2019-02-16] MEDS: Morphine 4 MG/ML VIAL SLOW IVP PRN ×4 (02:37→20:23)
[2019-02-16] MEDS: Lactated Ringer's 1,000 ML IV SCH (02:43)
[2019-02-16] MEDS: metroNIDAZOLE 500 MG in Premix Bag 1 BAG IVPB SCH ×3 (05:12→20:15)
[2019-02-16] MEDS: hydrALAZINE 25 MG TAB PO SCH ×2 (07:54→20:14)
[2019-02-16] MEDS: Clopidogrel Bisulfate 75 MG TAB PO SCH (07:54)
[2019-02-16] MEDS: Metoprolol Tartrate 50 MG TAB PO SCH ×2 (07:54→20:14)
[2019-02-16] MEDS ORDERED: Acetaminophen 325 MG TAB PO PRN (08:08)
[2019-02-16] MEDS ORDERED: Senokot S 8.6-50 MG TAB PO PRN (08:08)
[2019-02-16] MEDS ORDERED: Calcium Carbonate 500 MG ChewTAB PO PRN (08:08)
[2019-02-16] MEDS ORDERED: Artificial Tears 18 DROP/0.9 ML EA EYE PRN (08:08)
[2019-02-16] MEDS ORDERED: Bisacodyl 10 MG SUPP PR PRN (08:08)
[2019-02-16] MEDS ORDERED: Loperamide HCl 2 MG CAP PO PRN (08:08)
[2019-02-16] MEDS ORDERED: Diabetic Tussin 200 MG/10 ML UDCUP PO PRN (08:08)
[2019-02-16] MEDS ORDERED: Loratadine 10 MG TAB PO PRN (08:08)
[2019-02-16] MEDS ORDERED: Sodium Chloride 0.65% Nasal 44 ML BOT EA NARE PRN (08:08)
[2019-02-16] MEDS ORDERED: hydrALAZINE 20 MG/ML VIAL SLOW IVP PRN (08:08)
[2019-02-16] MEDS ORDERED: Cepastat Lozenges 1 LOZ PO PRN (08:08)
[2019-02-16] MEDS ORDERED: Zolpidem Tartrate 5 MG TAB PO PRN (08:08)
[2019-02-16] MEDS: Aspirin 81 mg Enteric Coated Tablet PO SCH (08:47)
--- NOTE | 2019-02-16 11:01 | PDOC.HOSPP ---
- Subjective Encounter Date: 02/16/19 Encounter Time: 08:30 Subjective: Patient seen and examined. No new complaints. No overnight events - Objective Vital Signs & Weight: Vital Signs (12 hours) Temp Pulse Resp BP Pulse Ox 02/16/19 08:02 99.1 F 88 20 178/95 H 94 L 02/16/19 08:00 94 L 02/16/19 07:54 78 02/16/19 07:09 96 02/16/19 07:08 78 20 96 02/16/19 04:30 97.6 F 84 16 175/90 H 94 L 02/16/19 00:17 88 16 95 02/16/19 00:00 98.5 F 88 16 166/86 H 95 Weight Admit Weight 269 lb 3.2 oz Weight 268 lb 11.2 oz Most Recent Monitor Data Heart Rate from ECG 83 NIBP 157/90 NIBP BP-Mean 112 Respiration from ECG 27 SpO2 96 I&O: 02/15/19 02/16/19 02/17/19 06:59 06:59 06:59 Intake Total 4176.0 4492 360 Output Total 1880 1990 Balance 2296.0 2502 360 Result Diagrams: 02/14/19 04:30 02/14/19 04:30 Additional Labs: Accuchecks 02/16/19 02/15/19 02/15/19 04:40 19:25 18:10 POC Glucose 140 H 154 H 124 H 02/15/19 11:22 POC Glucose 164 H Hospitalist ROS - Review of Systems Constitutional: denies: fever, chills, sweats, weakness, malaise, other Eyes: denies: pain, vision change, conjunctivae inflammation, eyelid inflammation, redness, other ENT: denies: ear pain, ear discharge, nose pain, nose discharge, nose congestion , mouth pain, mouth swelling, throat pain, throat swelling, other Respiratory: denies: cough, dry, shortness of breath, hemoptysis, SOB with excertion, pleuritic pain, sputum, wheezing, other Cardiovascular: denies: chest pain, palpitations, orthopnea, paroxysmal noc. dyspnea, edema, light headedness, other Gastrointestinal: denies: nausea, vomiting, abdominal pain, diarrhea, constipation, melena, hematochezia, other Genitourinary: denies: dysuria, frequency, incontinence, hematuria, retention, other Musculoskeletal: denies: neck pain, shoulder pain, arm pain, back pain, hand pain, leg pain, foot pain, other Skin: denies: rash, lesions, sterling, bruising, other - Medication Medications: Active Medications Generic Name Dose Route Start Last Admin Trade Name Freq PRN Reason Stop Dose Admin Acetaminophen 650 mg 02/13/19 13:30 02/15/19 00:14 Tylenol PO 650 mg Q8H PRN Administration Fever Albuterol/Ipratropium 3 ml 02/14/19 19:00 02/16/19 07:08 Duoneb NEB 3 ml [id number] VALENTINO Administration Aspirin 81 mg 02/16/19 09:00 02/16/19 08:47 Ecotrin PO 81 mg DAILY VALENTINO Administration Clopidogrel Bisulfate 75 mg 02/12/19 09:00 02/16/19 07:54 Plavix PO 75 mg QAM VALENTINO Administration Hydralazine HCl 25 mg 02/15/19 21:00 02/16/19 07:54 Apresoline PO 25 mg BID VALENTINO Administration Lactated Ringer's 1,000 mls @ 75 mls/hr 02/12/19 18:15 02/16/19 02:43 Lactated Ringer's IV 1,000 mls .[id number] VALENTINO Administration Ceftriaxone Sodium 2 gm/ 100 mls @ 200 mls/hr 02/14/19 13:00 02/15/19 12:59 Sodium Chloride IVPB 100 mls Q24HR VALENTINO Administration Metronidazole 500 mg/ Device 100 mls @ 100 mls/hr 02/14/19 14:00 02/16/19 05: 12 IVPB 100 mls Q8HR VALENTINO Administration Insulin Human Lispro 0 units 02/11/19 22:48 02/15/19 11:49 Humalog SC 2 unit .MODERATE SLIDING SC PRN Administration Moderate Correctional Scale Insulin Human Lispro 0 units 02/11/19 22:48 02/12/19 21:24 Humalog SC 2 unit .BEDTIME SLIDING SC PRN Administration Bedtime Correctional Scale Lorazepam 1 mg 02/14/19 20:38 02/14/19 20:59 Ativan SLOW IVP 1 mg Q6H PRN Administration Anxiety/Agitation Metformin HCl 500 mg 02/12/19 08:00 02/15/19 08:35 Glucophage PO 500 mg BID-WM VALENTINO Administration Metoprolol Tartrate 50 mg 02/15/19 21:00 02/16/19 07:54 Lopressor PO 50 mg BID VALENTINO Administration Morphine Sulfate 4 mg 02/14/19 11:45 02/16/19 09:14 Morphine SLOW IVP 4 mg Q4H PRN Administration Moderate to Severe Pain (4-10) Pantoprazole Sodium 40 mg 02/15/19 21:00 02/15/19 21:19 Protonix PO 40 mg HS VALENTINO Administration Propofol 1,000 mg 02/12/19 18:13 02/13/19 23:44 Diprivan IV 03/14/19 18:13 1,000 mg INF PRN Administration TO ACHIEVE GOAL RASS Protocol Sodium Chloride 10 ml 02/12/19 09:00 02/16/19 07:55 Flush - Normal Saline IVF Not Given Q12HR VALENTINO - Exam General Appearance: NAD, awake alert Eye: PERRL, anicteric sclera ENT: normocephalic atraumatic, no oropharyngeal lesions Neck: supple, symmetric, no JVD, no thyromegaly Heart: RRR, no murmur, no gallops, no rubs Respiratory: CTAB, no wheezes, no rales, no ronchi Gastrointestinal: soft, non-tender, non-distended, normal bowel sounds Extremities: no cyanosis, no clubbing, no edema Extremities - other findings: both feet with dressing and wound vac in place Skin: normal turgor, no lesions Neurological: no focal deficits Musculoskeletal: normal tone, normal strength Psychiatric: normal affect, normal behavior Hosp A/P (1) Sepsis Code(s): A41.9 - SEPSIS, UNSPECIFIED ORGANISM Status: Acute Qualifiers: Sepsis acute organ dysfunction status: with acute organ dysfunction Severe sepsis acute organ dysfunction type: acute respiratory failure Acute respiratory failure type: with hypoxia Severe sepsis shock status: with septic shock (2) Acute respiratory failure with hypoxia Code(s): J96.01 - ACUTE RESPIRATORY FAILURE WITH HYPOXIA Status: Resolved (3) Acute osteomyelitis of metatarsal bone of left foot Code(s): M86.172 - OTHER ACUTE OSTEOMYELITIS, LEFT ANKLE AND FOOT Status: Acute (4) Status post amputation of left great toe Code(s): Z89.412 - ACQUIRED ABSENCE OF LEFT GREAT TOE Status: Acute (5) Tobacco use Code(s): Z72.0 - TOBACCO USE Status: Chronic (6) Amputated toe of right foot Code(s): Z89.421 - ACQUIRED ABSENCE OF OTHER RIGHT TOE(S) Status: Chronic (7) CAD (coronary artery disease) Code(s): I25.10 - ATHSCL HEART DISEASE OF [place] CORONARY ARTERY W/O ANG PCTRS Status: Chronic Qualifiers: Coronary Disease-Associated Artery/Lesion type: [place] artery [place] vs. transplanted heart: [place] heart Associated angina: without angina Qualified Code(s): I25.10 - Atherosclerotic heart disease of [place] coronary artery without angina pectoris (8) DM type 2 (diabetes mellitus, type 2) Status: Chronic Qualifiers: Diabetes mellitus drosophere operator insulin use: with drosophere operator use Diabetes mellitus complication status: with circulatory complication Diabetes mellitus complication detail: with other circulatory complications Qualified Code(s): E11.59 - Type 2 diabetes mellitus with other circulatory complications; Z79.4 - gear shaper (current) use of insulin (9) Dyslipidemia Code(s): E78.5 - HYPERLIPIDEMIA, UNSPECIFIED Status: Chronic (10) HTN (hypertension) Code(s): I10 - ESSENTIAL (PRIMARY) HYPERTENSION Status: Chronic Qualifiers: Hypertension type: essential hypertension (11) PVD (peripheral vascular disease) Code(s): I73.9 - PERIPHERAL VASCULAR DISEASE, UNSPECIFIED Status: Chronic (12) Obesity (BMI 30.0-34.9) Code(s): E66.9 - OBESITY, UNSPECIFIED Status: Chronic (13) Physical deconditioning Code(s): R53.81 - OTHER MALAISE Status: Acute - Plan old records reviewed/req, plan discussed w/ family, continue antibiotics, PT/OT , 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
[2019-02-16 11:19] LABS: Vancomycin, Random 14.8 ug/mL (See Comment)
[2019-02-16] MEDS: Vancomycin HCl 750 MG in Sodium Chloride 0.9% 250 ML 250 ML IVPB SCH (12:11)
[2019-02-16] MEDS: cefTRIAXone\\ROCEPHIN 2 GM in Sodium Chloride 0.9% 100 ML IVPB SCH (14:12)
--- NOTE | 2019-02-16 14:58 | PRG ---
DATE OF SERVICE: 02/16/2019 SUBJECTIVE: Mr. Black is seen at his bedside with the Wound Care Team. He is having dressing changes on his bilateral feet. I last saw these open wounds two days ago with dressing change. He denies any problems over the past couple of days. He was transferred to the medical floor from the intensive care unit. Since his transfer, he has been afebrile with mild hypertension, but otherwise normal vital signs. Examination is turned first to his left foot. While there are extensive incisions extending from the plantar aspect of the foot around the dorsum and involving some bony resection of the dorsum, the tissue all appears to be pretty healthy. There is viable granulation tissue. There is no evidence of infection or necrosis. Attention was then turned to the right foot. In the lateral right foot, there was an open ulcer. I debrided the necrotic skin and soft tissue sharply two days ago and did this again today as there was some nonviable appearing tissue. There was very little granulation tissue within the wound on the right foot. There is no definite necrotic tissue and certainly no purulence or infection that is obvious. Wound care team will continue wound care with a wound VAC. Dr. Gurrola will see him upon his return. Job ID: [id number]
--- NOTE | 2019-02-16 16:49 | PRG ---
DATE OF SERVICE: 02/16/2019 SUBJECTIVE: Robel Black is having no respiratory issues. He denies chest congestion. OBJECTIVE: VITAL SIGNS: He is afebrile. Heart rate is in 70s, respiratory rate is 20, oximetry is 93, and blood pressure 156/82. LUNGS: Clear. HEART: Regular rhythm. ABDOMEN: Soft. LABORATORY DATA: No new lab other than blood glucoses. IMPRESSION: Chest congestion, relieved by nebulized treatments, likely related to mucus plugging and atelectasis. Given that this is all resolved and he has no prior history of similar episodes, I would recommend switching his nebulized treatments to p.r.n., anticipating discharge at some point. We will follow from a distance from this point forward. Please feel free to re-consult if Pulmonary assistance is needed. Job ID: [id number]
[2019-02-17] MEDS: Vancomycin HCl 750 MG in Sodium Chloride 0.9% 250 ML 250 ML IVPB SCH ×2 (00:21→12:52)
[2019-02-17] MEDS: metroNIDAZOLE 500 MG in Premix Bag 1 BAG IVPB SCH ×2 (05:26→15:44)
[2019-02-17] MEDS: Lactated Ringer's 1,000 ML IV SCH ×2 (05:28→11:59)
[2019-02-17] MEDS: Morphine 4 MG/ML VIAL SLOW IVP PRN ×2 (05:34→11:59)
[2019-02-17 07:02] LABS: #Basophils 0.1 thou/uL (0.0-0.2); #Eosinphils 0.4 thou/uL (0.0-0.7); #Lymphocytes 1.2 thou/uL (1.20-3.40); #Monocytes 0.7 thou/uL (0.11-0.59); #Neutrophils 6.7 thou/uL (1.40-6.50); %Basophils 0.7 % (0.0-1.0); %Eosinophils 4.8 % (0.0-10.0); %Lymphocytes 12.8 % (21.0-51.0); %Monocytes 7.3 % (0.0-10.0); %Neutrophils 74.4 % (42.0-75.0); Hemoglobin 10.8 g/dL (14.0-18.0); Mean Corpuscular HGB CONC 33.4 g/dL (32.0-36.0); Mean Corpuscular Hemoglobin 30.8 pg (27.0-31.0); Mean Corpuscular Volume 92.1 fL (78.0-98.0); Mean Platelet Volume 8.3 fL (7.4-10.4); Platelet Count 435 thou/uL (130-400); RBC Distribution Width 13.5 % (11.5-14.5); Red Blood Cell (RBC) Count 3.51 mill/uL (4.70-6.10)
[2019-02-17 07:20] LABS: ALT (SGPT) 23 U/L (8-55); AST (SGOT) 9 U/L (5-34); Albumin 2.5 g/dL (3.5-5.0); Alkaline Phosphatase 87 U/L (40-110); Anion Gap 13 mmol/L (10-20); BUN (Urea Nitrogen) 16 mg/dL (8.4-25.7); Bilirubin, Total 0.5 mg/dL (0.2-1.2); CRP (Inflammatory) 12.73 mg/dL (= or < 0.5); Calc. Creatinine Clearance 83 mL/min (70-130); Calcium 8.1 mg/dL (7.8-10.44); Carbon Dioxide 25 mmol/L (22-29); Chloride 110 mmol/L (98-107); Estimated GFR-MDRD 43; Globulin 3.9 g/dL (2.4-3.5); Glucose 139 mg/dL (70-105); Potassium 3.5 mmol/L (3.5-5.1); Protein, Total 6.4 g/dL (6.0-8.3); Sodium 144 mmol/L (136-145)
[2019-02-17 07:35] VITALS: BP 139/78; TEMP 98.1
[2019-02-17] MEDS: hydrALAZINE 25 MG TAB PO SCH (08:16)
[2019-02-17] MEDS: Aspirin 81 mg Enteric Coated Tablet PO SCH (08:17)
[2019-02-17] MEDS: Metoprolol Tartrate 50 MG TAB PO SCH (08:17)
[2019-02-17] MEDS: Clopidogrel Bisulfate 75 MG TAB PO SCH (08:17)
--- NOTE | 2019-02-17 10:21 | PDOC.HOSPP ---
- Subjective Encounter Date: 02/17/19 Encounter Time: 08:30 Subjective: Patient seen and examined. No new complaints. No overnight events - Objective Vital Signs & Weight: Vital Signs (12 hours) Temp Pulse Resp BP BP Pulse Ox 02/17/19 08:16 81 139/78 02/17/19 08:00 96 02/17/19 07:34 98.1 F 81 20 139/78 96 02/17/19 05:16 98.3 F 87 19 149/77 H 93 L 02/17/19 00:00 97.5 F L 84 18 156/84 H 97 Weight Admit Weight 269 lb 3.2 oz Weight 268 lb 11.2 oz Most Recent Monitor Data Heart Rate from ECG 83 NIBP 157/90 NIBP BP-Mean 112 Respiration from ECG 27 SpO2 96 I&O: 02/16/19 02/17/19 02/18/19 06:59 06:59 06:59 Intake Total 4492 3200 Output Total 1990 1425 Balance 2502 1775 Result Diagrams: 02/17/19 06:19 02/17/19 06:19 Additional Labs: Accuchecks 02/17/19 02/16/19 02/16/19 04:06 19:03 16:20 POC Glucose 153 H 185 H 175 H 02/16/19 11:55 POC Glucose 148 H Hospitalist ROS - Review of Systems Constitutional: denies: fever, chills, sweats, weakness, malaise, other ENT: denies: ear pain, ear discharge, nose pain, nose discharge, nose congestion , mouth pain, mouth swelling, throat pain, throat swelling, other Respiratory: denies: cough, dry, shortness of breath, hemoptysis, SOB with excertion, pleuritic pain, sputum, wheezing, other Cardiovascular: denies: chest pain, palpitations, orthopnea, paroxysmal noc. dyspnea, edema, light headedness, other Gastrointestinal: denies: nausea, vomiting, abdominal pain, diarrhea, constipation, melena, hematochezia, other Genitourinary: denies: dysuria, frequency, incontinence, hematuria, retention, other Musculoskeletal: denies: neck pain, shoulder pain, arm pain, back pain, hand pain, leg pain, foot pain, other Skin: denies: rash, lesions, sterling, bruising, other - Medication Medications: Active Medications Generic Name Dose Route Start Last Admin Trade Name Freq PRN Reason Stop Dose Admin Acetaminophen 650 mg 02/13/19 13:30 02/15/19 00:14 Tylenol PO 650 mg Q8H PRN Administration Fever Aspirin 81 mg 02/16/19 09:00 02/17/19 08:17 Ecotrin PO 81 mg DAILY VALENTINO Administration Clopidogrel Bisulfate 75 mg 02/12/19 09:00 02/17/19 08:17 Plavix PO 75 mg QAM VALENTINO Administration Hydralazine HCl 25 mg 02/15/19 21:00 02/17/19 08:16 Apresoline PO 25 mg BID VALENTINO Administration Lactated Ringer's 1,000 mls @ 75 mls/hr 02/12/19 18:15 02/17/19 05:28 Lactated Ringer's IV 1,000 mls .[id number] VALENTINO Administration Ceftriaxone Sodium 2 gm/ 100 mls @ 200 mls/hr 02/14/19 13:00 02/16/19 14:12 Sodium Chloride IVPB 100 mls Q24HR VALENTINO Administration Metronidazole 500 mg/ Device 100 mls @ 100 mls/hr 02/14/19 14:00 02/17/19 05: 26 IVPB 100 mls Q8HR VALENTINO Administration Vancomycin HCl 750 mg/ Sodium 250 mls @ 250 mls/hr 02/16/19 12:00 02/17/19 00 :21 Chloride IVPB 250 mls 1200,2359 VALENTINO Administration Insulin Human Lispro 0 units 02/11/19 22:48 02/15/19 11:49 Humalog SC 2 unit .MODERATE SLIDING SC PRN Administration Moderate Correctional Scale Insulin Human Lispro 0 units 02/11/19 22:48 02/12/19 21:24 Humalog SC 2 unit .BEDTIME SLIDING SC PRN Administration Bedtime Correctional Scale Lorazepam 1 mg 02/14/19 20:38 02/14/19 20:59 Ativan SLOW IVP 1 mg Q6H PRN Administration Anxiety/Agitation Metformin HCl 500 mg 02/12/19 08:00 02/15/19 08:35 Glucophage PO 500 mg BID-WM VALENTINO Administration Metoprolol Tartrate 50 mg 02/15/19 21:00 02/17/19 08:17 Lopressor PO 50 mg BID VALENTINO Administration Morphine Sulfate 4 mg 02/14/19 11:45 02/17/19 05:34 Morphine SLOW IVP 4 mg Q4H PRN Administration Moderate to Severe Pain (4-10) Pantoprazole Sodium 40 mg 02/15/19 21:00 02/16/19 20:14 Protonix PO 40 mg HS VALENTINO Administration Propofol 1,000 mg 02/12/19 18:13 02/13/19 23:44 Diprivan IV 03/14/19 18:13 1,000 mg INF PRN Administration TO ACHIEVE GOAL RASS Protocol Sodium Chloride 10 ml 02/12/19 09:00 02/17/19 08:18 Flush - Normal Saline IVF Not Given Q12HR VALENTINO - Exam General Appearance: NAD, awake alert Eye: PERRL, anicteric sclera ENT: normocephalic atraumatic, no oropharyngeal lesions Neck: supple, symmetric, no JVD, no thyromegaly Heart: RRR, no murmur, no gallops, no rubs, normal peripheral pulses Respiratory: CTAB, no wheezes, no rales, no ronchi Gastrointestinal: soft, non-tender, non-distended, normal bowel sounds, no palpable masses Gastrointestinal - other findings: obesity+ Extremities: no cyanosis, no clubbing Extremities - other findings: both feet with dressing and wound vac in place Skin: normal turgor, no lesions Neurological: cranial nerve grossly intact, normal sensation to touch, no weakness Musculoskeletal: normal tone, normal strength Psychiatric: normal affect, normal behavior, A&O x 3 Hosp A/P (1) Sepsis Code(s): A41.9 - SEPSIS, UNSPECIFIED ORGANISM Status: Acute Qualifiers: Sepsis acute organ dysfunction status: with acute organ dysfunction Severe sepsis acute organ dysfunction type: acute respiratory failure Acute respiratory failure type: with hypoxia Severe sepsis shock status: with septic shock (2) Acute respiratory failure with hypoxia Code(s): J96.01 - ACUTE RESPIRATORY FAILURE WITH HYPOXIA Status: Resolved (3) Acute osteomyelitis of metatarsal bone of left foot Code(s): M86.172 - OTHER ACUTE OSTEOMYELITIS, LEFT ANKLE AND FOOT Status: Acute (4) Status post amputation of left great toe Code(s): Z89.412 - ACQUIRED ABSENCE OF LEFT GREAT TOE Status: Acute (5) Tobacco use Code(s): Z72.0 - TOBACCO USE Status: Chronic (6) Amputated toe of right foot Code(s): Z89.421 - ACQUIRED ABSENCE OF OTHER RIGHT TOE(S) Status: Chronic (7) CAD (coronary artery disease) Code(s): I25.10 - ATHSCL HEART DISEASE OF [place] CORONARY ARTERY W/O ANG PCTRS Status: Chronic Qualifiers: Coronary Disease-Associated Artery/Lesion type: [place] artery [place] vs. transplanted heart: [place] heart Associated angina: without angina Qualified Code(s): I25.10 - Atherosclerotic heart disease of [place] coronary artery without angina pectoris (8) DM type 2 (diabetes mellitus, type 2) Status: Chronic Qualifiers: Diabetes mellitus exterminator helper termite insulin use: with exterminator helper termite use Diabetes mellitus complication status: with circulatory complication Diabetes mellitus complication detail: with other circulatory complications Qualified Code(s): E11.59 - Type 2 diabetes mellitus with other circulatory complications; Z79.4 - adjunct faculty for medical terminology (current) use of insulin (9) Dyslipidemia Code(s): E78.5 - HYPERLIPIDEMIA, UNSPECIFIED Status: Chronic (10) HTN (hypertension) Code(s): I10 - ESSENTIAL (PRIMARY) HYPERTENSION Status: Chronic Qualifiers: Hypertension type: essential hypertension (11) PVD (peripheral vascular disease) Code(s): I73.9 - PERIPHERAL VASCULAR DISEASE, UNSPECIFIED Status: Chronic (12) Obesity (BMI 30.0-34.9) Code(s): E66.9 - OBESITY, UNSPECIFIED Status: Chronic (13) Physical deconditioning Code(s): R53.81 - OTHER MALAISE Status: Acute (14) MAREK (acute kidney injury) Code(s): N17.9 - ACUTE KIDNEY FAILURE, UNSPECIFIED Status: Acute - Plan old records reviewed/req, continue antibiotics, PT/OT, 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- continue rocephin and flagyl as per ID recommendation, continue wound vac and wound care, home medication reviewed and symptomatic treatment, discussed with family, he will need snu placement, he will need mcc IV antibiotic, will need picc line, pain controlled, discussed with family, discussed with rn case manager hospice 02/17/19- as per wound care team and surgeon, wound is overall doing well, continue wound care with wound vac, will ask ID to decide on final antibiotics on discharge, he will need picc line and mcc IV antibiotics, he has approval for swing bed, but will ask surgery and ID to clear him for discharge, mean while continue current iv antibiotics, discussed with rn case manager hospice, continue rocephin and flagyl, continue IVF
[2019-02-17] MEDS: cefTRIAXone\\ROCEPHIN 2 GM in Sodium Chloride 0.9% 100 ML IVPB SCH (12:09)
--- NOTE | 2019-02-17 15:00 | SPC ---
RIGHT UPPER EXTREMITY PICC LINE PLACEMENT WITH ULTRASOUND GUIDANCE: HISTORY: Osteomyelitis COMPARISON: None. EXPOSURE: 0.4 minutes, 6541 mGy*^cm2.. FINDINGS: Successful right upper trachea PICC line placement with ultrasound guidance. Trim length is 45 cm. A single lumen 5 Bulgarian catheter terminates in the cavoatrial junction. Catheter does flush and aspirate without difficulty. TECHNIQUE: Consent obtained to perform a right upper extremity PICC line with ultrasound guidance. Right arm was prepped and draped in a sterile fashion. 1% lidocaine, buffered sodium bicarbonate, was used for local anesthesia. Under ultrasound guidance, a micropuncture needle was used to cannulate the basilic vein. A 0.018 guidewire was advanced through the needle to the level of the cavoatrial junction. Under fluoroscopy, wire was advanced into the inferior vena cava to document venous access. The wire was subsequently pulled back to the cavoatrial junction. Tract was dilated. A single lumen 5 Bulgarian catheter was advanced over the wire. Wire is removed. Catheter flushes and aspirates without difficul ty. 45 cm trim length. IMPRESSION: Successful right upper extremity PICC line placement with ultrasound guidance. Transcribed Date/Time: 02/17/2019 3:11 PM
--- NOTE | 2019-02-17 15:40 | DIS ---
DATE OF ADMISSION: 02/11/2019 DATE OF DISCHARGE: 02/17/2019 PRIMARY CARE PHYSICIAN: [facility] Call Admission. DISCHARGE DISPOSITION: Swing bed. PRIMARY DISCHARGE DIAGNOSES: 1. Severe sepsis with septic shock on admission. 2. Acute respiratory failure. 3. Acute kidney injury. 4. Status post amputation of left great toe. 5. Osteomyelitis. 6. Physical deconditioning. SECONDARY DISCHARGE DIAGNOSES: 1. Obesity with BMI 33. 2. Coronary artery disease with history of coronary artery bypass graft. 3. Diabetes type 2. 4. Hypertension. 5. Dyslipidemia. 6. Tobacco abuse disorder. PRIMARY PROCEDURES/OPERATIONS: Endotracheal intubation, mechanical ventilatory support, PICC line placement, incision and drainage of bilateral foot abscess, debridement of skin and subcutaneous tissue, muscle and tendon and connective tissue with resection of right great 5th metatarsal partially and complete resection of left 1st metatarsal and debridement of cuneiform, central line placement, bronchoscopy, radiological investigation, chest x-ray. SIGNIFICANT LABORATORY DATA: WBC 9.0, hemoglobin 10.8, platelet 435. Sodium 144, creatinine 1.64. CRP 12.7, albumin 2.5. Urinalysis was suggestive of UTI. Blood culture positive for Streptococcus. Urine culture negative. Wound culture growing anaerobic gram-negative delia, Staphylococcus aureus. Influenza screen negative. DISCHARGE MEDICATION: 1. Aspirin 81 mg p.o. daily. 2. Lipitor 40 mg p.o. at bedtime. 3. Plavix 75 mg daily. 4. Humalog insulin as per sliding scale. 5. Metformin 500 mg b.i.d. 6. Metoprolol 50 mg b.i.d. 7. Flagyl 500 mg p.o. t.i.d. 8. Vancomycin 1.5 g IV daily. CONTRAINDICATION: None. CODE STATUS: Full code. INPATIENT CAR VARNISHER: Pulmonary and Critical Care group were managing critical illness in ICU. Dr. Gurrola and Dr. Rees was managing Wound. Dr. Lanier was managing antibiotic. TEST RESULTS PENDING ON DISCHARGE: None. ALLERGIES: MALCOM INHIBITOR. DISCHARGE PLAN: Posthospital, the patient will follow up with primary care physician, Dr. Gurrola and Dr. Lanier as instructed. HOSPITAL COURSE: A 58-year-old male with above-mentioned medical problem, who was admitted by Dr. Villa on February 12, 2019. Please see his H and P for further details. The patient was admitted for left foot gangrene. He was having severe sepsis. He was treated with broad-spectrum antibiotic therapy. He also had acute kidney injury. The patient required surgical procedure by Dr. Gurrola. The patient had subsequently respiratory failure required intubation. He also had bronchoscopy. His pathology from amputation site still showing osteomyelitis and that is why Dr. Lanier recommended a longer antibiotic therapy. Based on culture and sensitivity result, he recommended vancomycin and Flagyl and his end of therapy would be March 15, 2019, The patient will need weekly CBC, CRP, BMP, and Vanco trough level. The patient is physically weak and that is why he needs placement and that is why with help of rn case management, we arranged jail home at [facility] bed. The patient will need wound care with wound VAC as per Wound Care Team guidance and Dr. Gurrola's guidance. The patient will finish antibiotic therapy and he will have insulin as per sliding scale. By the time of discharge, the patient is stabilized and all consultants cleared him for discharge. Paperwork for discharge done and discharge medication reconciliation done. The patient is medically stable for discharge today. Job ID: [id number]
[2019-02-17] MEDS: metFORMIN 500 MG TAB PO SCH (15:44)
== END 2019-02-17 16:56 | disposition swing bed (61) | DRG 853 ==
LOC: ERS 18:42 → 2NO 22:28 → CCU 02-12 18:20 → T4-B 02-15 18:44
PROVIDERS: ADMIT Family Medicine; ATTEND Family Medicine
PROC: 0Y6N0Z4 Detachment at Left Foot, Complete 1st Ray, Open Approach (ICD-10-PCS; principal; 2019-02-12)
PROC: 0Y6M0ZF Detachment at Right Foot, Partial 5th Ray, Open Approach (ICD-10-PCS; 2019-02-12)
PROC: 0JBQ0ZZ Excision of Right Foot Subcutaneous Tissue and Fascia, Open Approach (ICD-10-PCS; 2019-02-12)
PROC: 0JBR0ZZ Excision of Left Foot Subcutaneous Tissue and Fascia, Open Approach (ICD-10-PCS; 2019-02-12)
PROC: 0BC68ZZ Extirpation of Matter from Right Lower Lobe Bronchus, Via Natural or Artificial Opening Endoscopic (ICD-10-PCS; 2019-02-12)
PROC: 0BC48ZZ Extirpation of Matter from Right Upper Lobe Bronchus, Via Natural or Artificial Opening Endoscopic (ICD-10-PCS; 2019-02-12)
PROC: 0BC58ZZ Extirpation of Matter from Right Middle Lobe Bronchus, Via Natural or Artificial Opening Endoscopic (ICD-10-PCS; 2019-02-12)
PROC: 02HV33Z Insertion of Infusion Device into Superior Vena Cava, Percutaneous Approach (ICD-10-PCS; 2019-02-17)
PROC: B548ZZA Ultrasonography of Superior Vena Cava, Guidance (ICD-10-PCS; 2019-02-17)
DX: A41.9 Sepsis, unspecified organism (principal); J96.01 Acute respiratory failure with hypoxia; R65.21 Severe sepsis with septic shock; N17.9 Acute kidney failure, unspecified; L02.612 Cutaneous abscess of left foot; L02.611 Cutaneous abscess of right foot; J98.11 Atelectasis; M86.8X7 Other osteomyelitis, ankle and foot; E11.52 Type 2 diabetes mellitus with diabetic peripheral angiopathy with gangrene; I96 Gangrene, not elsewhere classified; L03.116 Cellulitis of left lower limb; L03.115 Cellulitis of right lower limb; I25.10 Atherosclerotic heart disease of native coronary artery without angina pectoris; Z95.1 Presence of aortocoronary bypass graft; E11.621 Type 2 diabetes mellitus with foot ulcer; L97.529 Non-pressure chronic ulcer of other part of left foot with unspecified severity; E11.42 Type 2 diabetes mellitus with diabetic polyneuropathy; E11.22 Type 2 diabetes mellitus with diabetic chronic kidney disease; I12.9 Hypertensive chronic kidney disease with stage 1 through stage 4 chronic kidney disease, or unspecified chronic kidney disease; N18.2 Chronic kidney disease, stage 2 (mild); E78.5 Hyperlipidemia, unspecified; E66.9 Obesity, unspecified; Z68.33 Body mass index [BMI] 33.0-33.9, adult; E11.628 Type 2 diabetes mellitus with other skin complications; Y83.8 Other surgical procedures as the cause of abnormal reaction of the patient, or of later complication, without mention of misadventure at the time of the procedure; E11.69 Type 2 diabetes mellitus with other specified complication; E88.09 Other disorders of plasma-protein metabolism, not elsewhere classified; R80.9 Proteinuria, unspecified; R53.81 Other malaise; F17.200 Nicotine dependence, unspecified, uncomplicated; Z71.6 Tobacco abuse counseling
CPT/HCPCS: 36415; 36416; 36569; 71045; 80053; 80202; 81003; 81015; 82553; 82805; 83605; 84484; 85007; 85025; 85027; 85652; 86140; 87040; 87070; 87077; 87086; 87149; 87186; 87205; 87804; 88305; 88311; 93005; 93010; 94002; 94003; 94660; 96360; 96361; 96365; 96367; 96375; C1751; C9113; J0696; J1644; J1885; J2001; J2060; J2270; J2370; J2543; J2704; J3010; J3370; J3490; J7050; J7070; J7620

== ENCOUNTER 2022-01-20 03:08 | Inpatient (IN) | payer MEDICARE ==
[2022-01-20 03:33] LABS: #Basophils 0.1 thou/uL (0.0-0.2); #Eosinphils 0.4 thou/uL (0.0-0.7); #Monocytes 0.9 thou/uL (0.11-0.59); #Neutrophils 9.3 thou/uL (1.40-6.50); %Basophils 0.6 % (0.0-1.0); %Eosinophils 2.9 % (0.0-10.0); %Lymphocytes 15.8 % (21.0-51.0); %Neutrophils 73.8 % (42.0-75.0); Hemoglobin 18.1 g/dL (14.0-18.0); Mean Corpuscular HGB CONC 32.6 g/dL (32.0-36.0); Mean Corpuscular Hemoglobin 30.2 pg (27.0-31.0); Mean Corpuscular Volume 92.8 fL (78.0-98.0); Mean Platelet Volume 9.4 fL (7.4-10.4); Platelet Count 269 thou/uL (130-400); RBC Distribution Width 12.5 % (11.5-14.5); White Blood Cell (WBC) Count 12.6 thou/uL (4.8-10.8)
[2022-01-20 04:03] LABS: ALT (SGPT) 20 U/L (8-55); AST (SGOT) 8 U/L (5-34); Albumin 3.7 g/dL (3.4-4.8); Alkaline Phosphatase 102 U/L (40-110); Anion Gap 17 mmol/L (10-20); BUN (Urea Nitrogen) 14 mg/dL (8.4-25.7); Bilirubin, Total 0.5 mg/dL (0.2-1.2); Calc. Creatinine Clearance 0 mL/min (70-130); Calcium 8.9 mg/dL (7.8-10.44); Carbon Dioxide 18 mmol/L (23-31); Chloride 103 mmol/L (98-107); Estimated GFR 82; Globulin 3.9 g/dL (2.4-3.5); Glucose 304 mg/dL (80-115); Potassium 4.4 mmol/L (3.5-5.1); Protein, Total 7.6 g/dL (5.8-8.1); Sodium 134 mmol/L (136-145)
[2022-01-20 04:26] LABS: CKMB 2.3 ng/mL (0-6.6)
[2022-01-20] MEDS ORDERED: Ondansetron ODT 4 MG TAB SL PRN (04:45)
[2022-01-20] MEDS ORDERED: Ondansetron PF 4 MG/2 ML Vial IVP PRN (04:45)
[2022-01-20 05:03] LABS: Acetaminophen Less than 10.0 mcg/mL (10.0-30.0); Alcohol Less than 10 mg/dL (Less than 10); Salicylate Less than 8.0 mg/dL (15.0-30.0)
[2022-01-20] MEDS ORDERED: Dextrose 50% Abboject 50 ML SYRINGE SLOW IVP PRN (05:25)
[2022-01-20] MEDS ORDERED: Acetaminophen 650 MG Suppository PR PRN (05:25)
[2022-01-20] MEDS ORDERED: Dextrose 5% in Water 1,000 ML IV PRN (05:25)
[2022-01-20] MEDS ORDERED: Acetaminophen 325 MG TAB PO PRN (05:25)
[2022-01-20] MEDS ORDERED: hydrALAZINE 20 MG/ML VIAL SLOW IVP PRN (05:25)
[2022-01-20 06:04] LABS: SARS-CoV-2 NAA Rapid Test Not Detected (NotDetected)
[2022-01-20 06:07] LABS: Bacteria/HPF None Seen HPF (None Seen); Bilirubin Negative (Negative); Blood, Urine 1+ (Negative); Clarity Clear (Clear); Glucose, Urine (Dipstick) Greater than 1000 mg/dL (Negative); Ketone, Urine Negative (Negative); Leukocyte Negative Leu/uL (Negative); Nitrite Negative (Negative); Protein, Urine (Dipstick) 70 mg/dL (Neg-Trace); Squamous Epithelial None Seen HPF (0-3); Urobilinogen Normal mg/dL (Less than 2); WBC/HPF 0-3 HPF (0-3); pH, Urine 5.5 (5.0-9.0)
[2022-01-20 06:08] LABS: Amphetamine Detected (NotDetected); Barbiturates Screen Not Detected (NotDetected); Benzodiazepine Screen Not Detected (NotDetected); Cocaine Metabolite Screen Not Detected (NotDetected); Methadone Not Detected (NotDetected); Methamphetamine Detected (NotDetected); Opiate Screen Not Detected (NotDetected); Oxycodone Screen Not Detected (NotDetected); Phencyclidine (PCP) Not Detected (NotDetected); THC/Cannabinoid Screen Detected (NotDetected); Tricyclic Screen Not Detected (NotDetected)
[2022-01-20] MEDS ORDERED: Aspirin Chewable 81 MG TAB PO SCH (06:30)
[2022-01-20] MEDS ORDERED: Aspirin 300 MG Suppository ONE (06:31)
[2022-01-20 08:10] LABS: Hemoglobin A1c 11.1 % (4.0-6.0)
[2022-01-20] MEDS ORDERED: Enoxaparin Sodium 40 MG/0.4 ML SYRINGE ONE (10:16)
[2022-01-20] MEDS: Enoxaparin Sodium 40 MG/0.4 ML SYRINGE SC SCH (10:20)
[2022-01-20 10:48] LABS: Troponin I 0.072 ng/mL (< 0.028)
[2022-01-20] MEDS ORDERED: Iopamidol 370 76% 100 ML VIAL ONE (13:34)
[2022-01-20] MEDS: Aspirin 81 mg Enteric Coated Tablet PO SCH (15:55)
[2022-01-20] MEDS: Sodium Chloride 0.9% 1,000 ML IV SCH (15:58)
[2022-01-20 17:09] VITALS: BMI 30.4
[2022-01-20] MEDS ORDERED: FLU VACC QS2022-23(6MOS UP)/PF 60 MCG/0.5 ML SYRINGE IM ONE (18:00)
[2022-01-20] MEDS ORDERED: Prevnar 13-Val Conj/PF 0.5 ML SYRINGE IM ONE (18:00)
[2022-01-20] MEDS: HumaLOG 300 UNITS/3 ML VIAL SC PRN (18:43)
[2022-01-20] MEDS: Atorvastatin Calcium 40 MG TAB PO SCH (20:44)
[2022-01-21 05:19] LABS: #Basophils 0.1 thou/uL (0.0-0.2); #Eosinphils 0.3 thou/uL (0.0-0.7); #Lymphocytes 1.9 thou/uL (1.20-3.40); #Neutrophils 10.8 thou/uL (1.40-6.50); %Basophils 0.4 % (0.0-1.0); %Eosinophils 2.1 % (0.0-10.0); %Lymphocytes 13.4 % (21.0-51.0); %Monocytes 6.9 % (0.0-10.0); %Neutrophils 77.3 % (42.0-75.0); Hemoglobin 16.9 g/dL (14.0-18.0); Mean Corpuscular HGB CONC 31.3 g/dL (32.0-36.0); Mean Corpuscular Hemoglobin 28.8 pg (27.0-31.0); Mean Corpuscular Volume 92.1 fL (78.0-98.0); Mean Platelet Volume 9.4 fL (7.4-10.4); Platelet Count 305 thou/uL (130-400); RBC Distribution Width 12.4 % (11.5-14.5); Red Blood Cell (RBC) Count 5.87 mill/uL (4.70-6.10)
[2022-01-21 05:30] LABS: Anion Gap 15 mmol/L (10-20); BUN (Urea Nitrogen) 15 mg/dL (8.4-25.7); Calc. Creatinine Clearance 113 mL/min (70-130); Carbon Dioxide 20 mmol/L (23-31); Cardiac Risk 6.4 (Less than 4.5); Chloride 105 mmol/L (98-107); Cholesterol 248 mg/dl (< 200 Desired); Estimated GFR 81; Glucose 285 mg/dL (80-115); HDL Cholesterol 39 mg/dL (>60 Neg Risk); LDL Cholesterol, Calculated 174 mg/dL; Potassium 4.2 mmol/L (3.5-5.1); Sodium 136 mmol/L (136-145); Triglycerides 174 mg/dL (Less than 150)
[2022-01-21] MEDS ORDERED: Insulin Glargine 30 UNITS/0.3 ML VIAL SC SCH ×2 (09:00→21:00)
[2022-01-21] MEDS: Enoxaparin Sodium 40 MG/0.4 ML SYRINGE SC SCH (09:21)
[2022-01-21] MEDS: Aspirin 300 MG Suppository PR SCH (09:22)
[2022-01-21] MEDS: Atorvastatin Calcium 40 MG TAB PO SCH (21:28)
[2022-01-22] MEDS: HumaLOG 300 UNITS/3 ML VIAL SC PRN ×3 (06:37→16:54)
[2022-01-22] MEDS: Enoxaparin Sodium 40 MG/0.4 ML SYRINGE SC SCH (09:00)
[2022-01-22] MEDS: Aspirin 300 MG Suppository PR SCH (09:00)
[2022-01-22] MEDS: Insulin Glargine 30 UNITS/0.3 ML VIAL SC SCH ×2 (09:01→20:31)
[2022-01-22] MEDS: Aspirin 81 mg Enteric Coated Tablet PO SCH ×2 (09:13→18:12)
[2022-01-22] MEDS ORDERED: Aspirin 81 mg Enteric Coated Tablet PO SCH (18:00)
[2022-01-22] MEDS: Atorvastatin Calcium 40 MG TAB PO SCH (20:31)
[2022-01-23 05:19] LABS: #Basophils 0.1 thou/uL (0.0-0.2); #Eosinphils 0.4 thou/uL (0.0-0.7); #Monocytes 0.9 thou/uL (0.11-0.59); #Neutrophils 8.2 thou/uL (1.40-6.50); %Basophils 0.7 % (0.0-1.0); %Eosinophils 3.5 % (0.0-10.0); %Lymphocytes 17.4 % (21.0-51.0); %Neutrophils 70.4 % (42.0-75.0); Hemoglobin 17.3 g/dL (14.0-18.0); Mean Corpuscular HGB CONC 32.1 g/dL (32.0-36.0); Mean Corpuscular Hemoglobin 29.6 pg (27.0-31.0); Mean Corpuscular Volume 92.4 fL (78.0-98.0); Mean Platelet Volume 9.1 fL (7.4-10.4); Platelet Count 279 thou/uL (130-400); RBC Distribution Width 12.1 % (11.5-14.5); Red Blood Cell (RBC) Count 5.83 mill/uL (4.70-6.10); White Blood Cell (WBC) Count 11.7 thou/uL (4.8-10.8)
[2022-01-23 05:31] LABS: Anion Gap 12 mmol/L (10-20); BUN (Urea Nitrogen) 18 mg/dL (8.4-25.7); Calc. Creatinine Clearance 117 mL/min (70-130); Calcium 8.8 mg/dL (7.8-10.44); Carbon Dioxide 24 mmol/L (23-31); Chloride 102 mmol/L (98-107); Estimated GFR 84; Glucose 192 mg/dL (80-115); Potassium 3.8 mmol/L (3.5-5.1); Sodium 134 mmol/L (136-145)
[2022-01-23] MEDS: Enoxaparin Sodium 40 MG/0.4 ML SYRINGE SC SCH (08:37)
[2022-01-23] MEDS: Clopidogrel Bisulfate 75 MG TAB PO SCH (08:37)
[2022-01-23] MEDS: Insulin Glargine 30 UNITS/0.3 ML VIAL SC SCH ×2 (08:38→20:04)
[2022-01-23] MEDS: Aspirin 81 mg Enteric Coated Tablet PO SCH (08:38)
[2022-01-23] MEDS: HumaLOG 300 UNITS/3 ML VIAL SC PRN ×3 (11:01→20:07)
[2022-01-23] MEDS: Atorvastatin Calcium 40 MG TAB PO SCH (20:00)
[2022-01-24 05:32] LABS: #Basophils 0.1 thou/uL (0.0-0.2); #Eosinphils 0.4 thou/uL (0.0-0.7); #Monocytes 0.9 thou/uL (0.11-0.59); #Neutrophils 7.9 thou/uL (1.40-6.50); %Basophils 0.6 % (0.0-1.0); %Eosinophils 3.3 % (0.0-10.0); %Lymphocytes 17.6 % (21.0-51.0); %Monocytes 8.1 % (0.0-10.0); %Neutrophils 70.4 % (42.0-75.0); Hemoglobin 17.3 g/dL (14.0-18.0); Mean Corpuscular HGB CONC 32.3 g/dL (32.0-36.0); Mean Corpuscular Hemoglobin 29.8 pg (27.0-31.0); Mean Corpuscular Volume 92.3 fL (78.0-98.0); Mean Platelet Volume 9.6 fL (7.4-10.4); Platelet Count 273 thou/uL (130-400); RBC Distribution Width 12.2 % (11.5-14.5); Red Blood Cell (RBC) Count 5.82 mill/uL (4.70-6.10); White Blood Cell (WBC) Count 11.2 thou/uL (4.8-10.8)
[2022-01-24 05:43] LABS: Anion Gap 14 mmol/L (10-20); BUN (Urea Nitrogen) 18 mg/dL (8.4-25.7); Calc. Creatinine Clearance 131 mL/min (70-130); Carbon Dioxide 23 mmol/L (23-31); Chloride 103 mmol/L (98-107); Estimated GFR 96; Glucose 160 mg/dL (80-115); Magnesium 1.9 mg/dL (1.6-2.6); Potassium 3.9 mmol/L (3.5-5.1); Sodium 136 mmol/L (136-145)
[2022-01-24] MEDS: HumaLOG 300 UNITS/3 ML VIAL SC PRN ×4 (06:03→21:03)
[2022-01-24] MEDS: Aspirin 81 mg Enteric Coated Tablet PO SCH (08:23)
[2022-01-24] MEDS: Enoxaparin Sodium 40 MG/0.4 ML SYRINGE SC SCH (08:24)
[2022-01-24] MEDS: Clopidogrel Bisulfate 75 MG TAB PO SCH (08:24)
[2022-01-24] MEDS: Insulin Glargine 30 UNITS/0.3 ML VIAL SC SCH ×2 (08:24→21:03)
[2022-01-24] MEDS: Atorvastatin Calcium 40 MG TAB PO SCH (21:03)
[2022-01-25] MEDS: HumaLOG 300 UNITS/3 ML VIAL SC PRN ×2 (06:09→11:28)
[2022-01-25] MEDS: Clopidogrel Bisulfate 75 MG TAB PO SCH (08:26)
[2022-01-25] MEDS: Aspirin 81 mg Enteric Coated Tablet PO SCH (08:26)
[2022-01-25] MEDS: Enoxaparin Sodium 40 MG/0.4 ML SYRINGE SC SCH (08:27)
[2022-01-25] MEDS: Insulin Glargine 30 UNITS/0.3 ML VIAL SC SCH ×2 (08:27→20:11)
[2022-01-25] MEDS: Atorvastatin Calcium 40 MG TAB PO SCH (20:10)
[2022-01-26] MEDS: HumaLOG 300 UNITS/3 ML VIAL SC PRN ×3 (05:57→20:00)
[2022-01-26 08:43] LABS: #Basophils 0.1 thou/uL (0.0-0.2); #Eosinphils 0.3 thou/uL (0.0-0.7); #Monocytes 0.9 thou/uL (0.11-0.59); #Neutrophils 7.3 thou/uL (1.40-6.50); %Basophils 0.8 % (0.0-1.0); %Eosinophils 2.8 % (0.0-10.0); %Lymphocytes 19.2 % (21.0-51.0); %Monocytes 8.1 % (0.0-10.0); %Neutrophils 69.1 % (42.0-75.0); Hemoglobin 16.9 g/dL (14.0-18.0); Mean Corpuscular Hemoglobin 30.7 pg (27.0-31.0); Mean Corpuscular Volume 93.1 fL (78.0-98.0); Mean Platelet Volume 9.5 fL (7.4-10.4); Platelet Count 270 thou/uL (130-400); RBC Distribution Width 12.2 % (11.5-14.5); Red Blood Cell (RBC) Count 5.52 mill/uL (4.70-6.10); White Blood Cell (WBC) Count 10.5 thou/uL (4.8-10.8)
[2022-01-26] MEDS: Enoxaparin Sodium 40 MG/0.4 ML SYRINGE SC SCH (09:43)
[2022-01-26] MEDS: Insulin Glargine 30 UNITS/0.3 ML VIAL SC SCH ×2 (09:44→19:59)
[2022-01-26] MEDS: Clopidogrel Bisulfate 75 MG TAB PO SCH (09:44)
[2022-01-26] MEDS: Aspirin 81 mg Enteric Coated Tablet PO SCH (09:44)
[2022-01-26 19:56] VITALS: BP 132/82; TEMP 97
[2022-01-26] MEDS: Atorvastatin Calcium 40 MG TAB PO SCH (20:01)
== END 2022-01-26 21:10 | DRG 64 ==
LOC: ERS 03:08 → ERHOLD 04:28 → NEURO 16:30
PROVIDERS: ADMIT Student in an Organized Health Care Education/Training Program; ATTEND Family Medicine
DX: I63.512 Cerebral infarction due to unspecified occlusion or stenosis of left middle cerebral artery (principal); I21.A1 Myocardial infarction type 2; I50.21 Acute systolic (congestive) heart failure; E87.1 Hypo-osmolality and hyponatremia; G81.91 Hemiplegia, unspecified affecting right dominant side; E78.00 Pure hypercholesterolemia, unspecified; I25.10 Atherosclerotic heart disease of native coronary artery without angina pectoris; F17.210 Nicotine dependence, cigarettes, uncomplicated; D72.829 Elevated white blood cell count, unspecified; F19.10 Other psychoactive substance abuse, uncomplicated; R47.01 Aphasia; E66.9 Obesity, unspecified; E11.51 Type 2 diabetes mellitus with diabetic peripheral angiopathy without gangrene; E11.65 Type 2 diabetes mellitus with hyperglycemia; R77.8 Other specified abnormalities of plasma proteins; R47.81 Slurred speech; I11.0 Hypertensive heart disease with heart failure; Z20.822 Contact with and (suspected) exposure to COVID-19; R29.810 Facial weakness; Z88.8 Allergy status to other drugs, medicaments and biological substances; Z79.82 Long term (current) use of aspirin; Z95.1 Presence of aortocoronary bypass graft; Z68.30 Body mass index [BMI] 30.0-30.9, adult; Z98.890 Other specified postprocedural states; Z79.84 Long term (current) use of oral hypoglycemic drugs; Z79.899 Other long term (current) drug therapy; Z89.429 Acquired absence of other toe(s), unspecified side
CPT/HCPCS: 36415; 36416; 70450; 70496; 70498; 70551; 74230; 80048; 80053; 80061; 80306; 80307; 81003; 81015; 82553; 82947; 83036; 83735; 84443; 84484; 85025; 87811; 90471; 90686; 93005; 93306; 94760; 95706; 95712; 95819; 95957; G0008; J1650; J1815; J7050; Q9967; U0002

== ENCOUNTER 2022-02-25 13:02 | Inpatient (IN) | payer MEDICARE ==
[2022-02-25] MEDS ORDERED: Acetaminophen 500 MG TAB ONE (14:38)
[2022-02-25] MEDS ORDERED: Ketorolac Tromethamine 30 MG/ML VIAL ONE (14:38)
[2022-02-25] MEDS ORDERED: Gabapentin 300 MG CAP ONE (14:38)
[2022-02-25] MEDS ORDERED: fentaNYL PF 100 MCG/2 ML SYRINGE ONE (15:30)
[2022-02-25] MEDS ORDERED: Phenylephrine 10 MG/ML VIAL ONE (15:31)
[2022-02-25 15:40] LABS: SARS-CoV-2 NAA Rapid Test DETECTED (NotDetected)
[2022-02-25] MEDS ORDERED: Sodium Chloride 0.9% 100 ML ONE (15:46)
[2022-02-25] MEDS ORDERED: CEFAZOLIN 2 GM VIAL ONE (15:46)
[2022-02-25] MEDS ORDERED: traMADol HCl 50 MG TAB PO PRN ×2 (15:57)
[2022-02-25] MEDS ORDERED: Ondansetron PF 4 MG/2 ML Vial IVP PRN ×2 (15:57→17:10)
[2022-02-25] MEDS ORDERED: Lorazepam 2 MG/ML VIAL SLOW IVP PRN (15:57)
[2022-02-25] MEDS ORDERED: Dextrose 50% Abboject 50 ML SYRINGE SLOW IVP PRN (15:57)
[2022-02-25] MEDS ORDERED: HYDROcodone/Acetaminophen 10/325 mg Tablet PO PRN (15:57)
[2022-02-25] MEDS ORDERED: Morphine 4 MG/ML VIAL SLOW IVP PRN ×2 (15:57→16:28)
[2022-02-25] MEDS ORDERED: HumaLOG 300 UNITS/3 ML VIAL SC PRN ×2 (15:57→21:33)
[2022-02-25] MEDS ORDERED: Ondansetron ODT 4 MG TAB PO PRN (15:57)
[2022-02-25] MEDS ORDERED: hydrALAZINE 20 MG/ML VIAL SLOW IVP PRN (15:57)
[2022-02-25] MEDS ORDERED: TETANUS, DIPHTHERIA TOX,ADULT (TDVAX) 0.5 ML VIAL IM ONE (15:57)
[2022-02-25] MEDS ORDERED: Dextrose 5% in Water 1,000 ML IV PRN (15:57)
[2022-02-25] MEDS ORDERED: Ondansetron PF 4 MG/2 ML Vial ONE (15:58)
[2022-02-25] MEDS ORDERED: PHENYLEPHRINE-NS 100 MCG/ML 10 ML SYRINGE ONE (15:58)
[2022-02-25] MEDS ORDERED: Glycopyrrolate 0.2 MG/ML 5 ML SYRINGE ONE (15:58)
[2022-02-25] MEDS ORDERED: Rocuronium Bromide 10 MG/ML (10ML VIAL) ONE (15:58)
[2022-02-25] MEDS ORDERED: NEOSTIGMINE 3 MG/3 ML SYR 3 MG/3 ML SYRINGE ONE (15:58)
[2022-02-25] MEDS ORDERED: cloNIDine 0.1 MG TAB PO PRN (16:08)
[2022-02-25] MEDS ORDERED: diphenhydrAMINE 25 MG CAP PO PRN ×2 (16:08→17:10)
[2022-02-25] MEDS ORDERED: Calcium Carbonate 500 MG ChewTAB PO PRN (16:08)
[2022-02-25] MEDS ORDERED: Acetaminophen 325 MG TAB PO PRN (16:08)
[2022-02-25] MEDS ORDERED: Milk Of Magnesia 30 ML UDCUP PO PRN (16:32)
[2022-02-25] MEDS ORDERED: Promethazine HCl 25 MG/ML VIAL IVPB PRN (16:37)
[2022-02-25] MEDS ORDERED: HYDROmorphone 2 MG/ML VIAL SLOW IVP PRN (16:37)
[2022-02-25] MEDS ORDERED: Meperidine HCl/PF 25 MG/ML VIAL SLOW IVP PRN (16:37)
[2022-02-25] MEDS ORDERED: Promethazine HCl 25 MG/ML VIAL IM PRN (17:10)
[2022-02-25] MEDS ORDERED: diphenhydrAMINE 50 MG/ML VIAL IVP PRN (17:10)
[2022-02-25] MEDS ORDERED: Zolpidem Tartrate 5 MG TAB PO PRN (17:10)
[2022-02-25] MEDS ORDERED: diphenhydrAMINE 50 MG/ML VIAL IM PRN (17:10)
[2022-02-25] MEDS ORDERED: Naloxone HCl 0.4 mg/ml Vial IV PRN (17:10)
[2022-02-25] MEDS ORDERED: FENTANYL 500 MCG/10 ML VIAL 2,000 MCG in Sodium Chloride 0.9% 60 ML IV PRN (17:11)
[2022-02-25] MEDS ORDERED: Communication Order-Pharmacy FS SCH (17:15)
[2022-02-25] MEDS ORDERED: FENTANYL 50 MCG/ML 1 ML VIAL ONE (17:18)
[2022-02-25 18:53] VITALS: BMI 28.5
[2022-02-25] MEDS: metFORMIN 500 MG TAB PO SCH (19:37)
[2022-02-25] MEDS: Enoxaparin Sodium 40 MG/0.4 ML SYRINGE SC SCH (21:26)
[2022-02-25] MEDS: Gabapentin 300 MG CAP PO SCH (21:26)
[2022-02-25] MEDS: Famotidine 20 MG TAB PO SCH (21:27)
[2022-02-25] MEDS: Sodium Chloride 0.9% 1,000 ML IV SCH (22:13)
[2022-02-26] MEDS: Sodium Chloride 0.9% 1,000 ML IV SCH ×2 (04:26→17:06)
[2022-02-26 05:43] LABS: #Eosinphils 0.1 thou/uL (0.0-0.7); #Lymphocytes 1.1 thou/uL (1.20-3.40); #Monocytes 0.5 thou/uL (0.11-0.59); #Neutrophils 5.5 thou/uL (1.40-6.50); %Basophils 0.3 % (0.0-1.0); %Eosinophils 1.9 % (0.0-10.0); %Lymphocytes 14.6 % (21.0-51.0); %Monocytes 6.9 % (0.0-10.0); %Neutrophils 76.4 % (42.0-75.0); Hemoglobin 12.8 g/dL (14.0-18.0); Mean Corpuscular HGB CONC 32.3 g/dL (32.0-36.0); Mean Corpuscular Hemoglobin 29.7 pg (27.0-31.0); Mean Corpuscular Volume 91.9 fl (78.0-98.0); Mean Platelet Volume 8.3 fL (7.4-10.4); Platelet Count 308 10x3/uL (130-400); RBC Distribution Width 12.7 % (11.5-14.5); Red Blood Cell (RBC) Count 4.33 mill/uL (4.70-6.10); White Blood Cell (WBC) Count 7.2 10x3/uL (4.8-10.8)
[2022-02-26 05:59] LABS: Phosphorus 2.9 mg/dL (2.3-4.7)
[2022-02-26 06:11] LABS: ALT (SGPT) 26 U/L (8-55); AST (SGOT) 17 U/L (5-34); Albumin 2.7 g/dL (3.4-4.8); Alkaline Phosphatase 73 U/L (40-110); Anion Gap 9 mmol/L (10-20); BUN (Urea Nitrogen) 13 mg/dL (8.4-25.7); Bilirubin, Total 0.3 mg/dL (0.2-1.2); Calc. Creatinine Clearance 124 mL/min (70-130); Calcium 8.3 mg/dL (7.8-10.44); Carbon Dioxide 28 mmol/L (23-31); Chloride 103 mmol/L (98-107); Estimated GFR 97; Globulin 3.9 g/dL (2.4-3.5); Glucose 146 mg/dL (80-115); Magnesium 1.7 mg/dL (1.6-2.6); Potassium 3.6 mmol/L (3.5-5.1); Protein, Total 6.6 g/dL (5.8-8.1); Sodium 136 mmol/L (136-145)
[2022-02-26] MEDS ORDERED: FLU VACC QS2022-23(6MOS UP)/PF 60 MCG/0.5 ML SYRINGE IM ONE (09:00)
[2022-02-26] MEDS: Clopidogrel Bisulfate 75 MG TAB PO SCH (09:02)
[2022-02-26] MEDS: Aspirin 81 mg Enteric Coated Tablet PO SCH (09:02)
[2022-02-26] MEDS: Gabapentin 300 MG CAP PO SCH ×3 (09:02→21:10)
[2022-02-26] MEDS: metFORMIN 500 MG TAB PO SCH ×2 (09:02→17:05)
[2022-02-26] MEDS: Famotidine 20 MG TAB PO SCH ×2 (09:03→21:10)
[2022-02-26] MEDS: Polyethylene Glycol 3350 17 GM Packet PO SCH (09:06)
[2022-02-26] MEDS ORDERED: Morphine 4 MG/ML VIAL SLOW IVP PRN (14:38)
[2022-02-26] MEDS: HYDROcodone/Acetaminophen 10/325 mg Tablet PO PRN ×2 (17:06→21:10)
[2022-02-26] MEDS: traMADol HCl 50 MG TAB PO PRN (20:03)
[2022-02-26] MEDS: Enoxaparin Sodium 40 MG/0.4 ML SYRINGE SC SCH (21:09)
[2022-02-27] MEDS: HYDROcodone/Acetaminophen 10/325 mg Tablet PO PRN ×3 (01:19→14:30)
[2022-02-27] MEDS: Polyethylene Glycol 3350 17 GM Packet PO SCH (10:36)
[2022-02-27] MEDS: metFORMIN 500 MG TAB PO SCH ×2 (10:36→18:52)
[2022-02-27] MEDS: Aspirin 81 mg Enteric Coated Tablet PO SCH (10:36)
[2022-02-27] MEDS: Clopidogrel Bisulfate 75 MG TAB PO SCH (10:37)
[2022-02-27] MEDS: Famotidine 20 MG TAB PO SCH ×2 (10:37→21:39)
[2022-02-27] MEDS: Gabapentin 300 MG CAP PO SCH ×3 (10:37→21:39)
[2022-02-27] MEDS ORDERED: Triple Antibiotic Oint 1 GM Packet TOP SCH (20:45)
[2022-02-27] MEDS: Enoxaparin Sodium 40 MG/0.4 ML SYRINGE SC SCH (21:39)
[2022-02-28] MEDS: HYDROcodone/Acetaminophen 10/325 mg Tablet PO PRN ×4 (06:26→21:22)
[2022-02-28] MEDS: Triple Antibiotic Oint 1 GM Packet TOP SCH (06:27)
[2022-02-28] MEDS: Clopidogrel Bisulfate 75 MG TAB PO SCH (09:15)
[2022-02-28] MEDS: Gabapentin 300 MG CAP PO SCH ×3 (09:15→21:23)
[2022-02-28] MEDS: metFORMIN 500 MG TAB PO SCH ×2 (09:15→16:33)
[2022-02-28] MEDS: Aspirin 81 mg Enteric Coated Tablet PO SCH (09:15)
[2022-02-28] MEDS: Famotidine 20 MG TAB PO SCH ×2 (09:15→21:24)
[2022-02-28] MEDS: Polyethylene Glycol 3350 17 GM Packet PO SCH (09:16)
[2022-02-28] MEDS ORDERED: Morphine 4 MG/ML VIAL SLOW IVP PRN (15:14)
[2022-02-28] MEDS: Enoxaparin Sodium 40 MG/0.4 ML SYRINGE SC SCH (21:24)
[2022-03-01] MEDS: Gabapentin 300 MG CAP PO SCH ×3 (08:42→19:58)
[2022-03-01] MEDS: Famotidine 20 MG TAB PO SCH ×2 (08:42→19:58)
[2022-03-01] MEDS: metFORMIN 500 MG TAB PO SCH ×2 (08:42→17:21)
[2022-03-01] MEDS: Clopidogrel Bisulfate 75 MG TAB PO SCH (08:42)
[2022-03-01] MEDS: Aspirin 81 mg Enteric Coated Tablet PO SCH (08:42)
[2022-03-01] MEDS: Triple Antibiotic Oint 1 GM Packet TOP SCH (08:42)
[2022-03-01] MEDS: Polyethylene Glycol 3350 17 GM Packet PO SCH (09:42)
[2022-03-01] MEDS: HYDROcodone/Acetaminophen 10/325 mg Tablet PO PRN ×2 (15:16→20:00)
[2022-03-01] MEDS: Enoxaparin Sodium 40 MG/0.4 ML SYRINGE SC SCH (19:57)
[2022-03-02] MEDS: Triple Antibiotic Oint 1 GM Packet TOP SCH (08:24)
[2022-03-02] MEDS: Aspirin 81 mg Enteric Coated Tablet PO SCH (08:24)
[2022-03-02] MEDS: Gabapentin 300 MG CAP PO SCH ×3 (08:24→21:55)
[2022-03-02] MEDS: metFORMIN 500 MG TAB PO SCH ×2 (08:25→16:36)
[2022-03-02] MEDS: Polyethylene Glycol 3350 17 GM Packet PO SCH (08:25)
[2022-03-02] MEDS: Famotidine 20 MG TAB PO SCH ×2 (08:25→21:56)
[2022-03-02] MEDS: Clopidogrel Bisulfate 75 MG TAB PO SCH (08:25)
[2022-03-02] MEDS: HYDROcodone/Acetaminophen 10/325 mg Tablet PO PRN ×2 (13:00→22:05)
[2022-03-02] MEDS: traMADol HCl 50 MG TAB PO PRN (16:36)
[2022-03-02] MEDS: Enoxaparin Sodium 40 MG/0.4 ML SYRINGE SC SCH (21:56)
[2022-03-03] MEDS: Clopidogrel Bisulfate 75 MG TAB PO SCH (09:16)
[2022-03-03] MEDS: metFORMIN 500 MG TAB PO SCH ×2 (09:16→18:33)
[2022-03-03] MEDS: Famotidine 20 MG TAB PO SCH ×2 (09:16→21:19)
[2022-03-03] MEDS: Aspirin 81 mg Enteric Coated Tablet PO SCH (09:16)
[2022-03-03] MEDS: Gabapentin 300 MG CAP PO SCH ×3 (09:17→21:18)
[2022-03-03] MEDS: Triple Antibiotic Oint 1 GM Packet TOP SCH (09:18)
[2022-03-03] MEDS: Polyethylene Glycol 3350 17 GM Packet PO SCH (09:18)
[2022-03-03] MEDS: HYDROcodone/Acetaminophen 10/325 mg Tablet PO PRN ×2 (09:34→15:18)
[2022-03-03] MEDS: Enoxaparin Sodium 40 MG/0.4 ML SYRINGE SC SCH (21:18)
[2022-03-04 08:36] VITALS: BP 135/80; TEMP 97.9
[2022-03-04] MEDS: Gabapentin 300 MG CAP PO SCH (09:20)
[2022-03-04] MEDS: Clopidogrel Bisulfate 75 MG TAB PO SCH (09:20)
[2022-03-04] MEDS: Famotidine 20 MG TAB PO SCH (09:20)
[2022-03-04] MEDS: metFORMIN 500 MG TAB PO SCH (09:20)
[2022-03-04] MEDS: Aspirin 81 mg Enteric Coated Tablet PO SCH (09:20)
[2022-03-04] MEDS: Triple Antibiotic Oint 1 GM Packet TOP SCH (09:21)
[2022-03-04] MEDS: Polyethylene Glycol 3350 17 GM Packet PO SCH (09:22)
== END 2022-03-04 10:30 | DRG 239 ==
LOC: SDC 13:02 → SURG B 15:57
PROVIDERS: ADMIT Specialist; ATTEND Specialist
PROC: 0Y6J0Z2 Detachment at Left Lower Leg, Mid, Open Approach (ICD-10-PCS; principal; 2022-02-25)
PROC: 8E0ZXY6 Isolation (ICD-10-PCS; 2022-02-25)
DX: E11.52 Type 2 diabetes mellitus with diabetic peripheral angiopathy with gangrene (principal); U07.1 COVID-19; I69.351 Hemiplegia and hemiparesis following cerebral infarction affecting right dominant side; I10 Essential (primary) hypertension; I25.10 Atherosclerotic heart disease of native coronary artery without angina pectoris; I70.262 Atherosclerosis of native arteries of extremities with gangrene, left leg; Z28.81 Immunization not carried out due to patient having had the disease; I69.328 Other speech and language deficits following cerebral infarction; Z88.8 Allergy status to other drugs, medicaments and biological substances; Z79.899 Other long term (current) drug therapy; Z79.4 Long term (current) use of insulin; Z79.02 Long term (current) use of antithrombotics/antiplatelets; Z79.84 Long term (current) use of oral hypoglycemic drugs
CPT/HCPCS: 36415; 36416; 80053; 83735; 84100; 88307; J1650; J1815; J1885; J2270; J2370; J2405; J3010; J3490; J7050; U0002